=== PATIENT | female | born 1970 | race Caucasian/White ===

== ENCOUNTER 2017-02-22 18:40 | Emergency (ER) | payer MEDICARE ==
[~2017-02-22] VITALS: Ht 167.6 cm; Wt 126.1 kg
[~2017-02-22 18:40] MED LIST: AMBIEN10 MG; AMBIEN10 MG PO; ATORVASTATIN CA40 MG PO; BUPROPION HCL100 M1 PO; BUSPIRONE HCL10 MG PO; COMBIVENT RESPIM4 GM IH; CYMBALTA20 MG; CYMBALTA60 MG PO; DIPHENHYDRAMINE50 M1 PO; HUMALOG100 UNIT/1 SC; HYDRALAZINE HCL10 MG PO; LANTUS 3ML100 UNITS/ SC; LIPITOR80 MG; LIPITOR80 MG PO; METFORMIN HCL1000 MG PO; METOPROLOL SUCC25 MG PO; METOPROLOL SUCC50 MG PO; NOVOLOG100 UNITS1 SQ; PROVENTIL HFA6.7 GM INH; SYMBICORT 16010.2 GM INH; TIZANIDINE HCL4 M1 PO; TOPAMAX100 MG PO; TOPIRAMATE25 MG PO; TOPROL XL25 MG; TRIFLUOPERAZINE2 MG PO; TRIFLUOPERAZINE5 MG PO; VENTOLIN HFA18 GM INH; ZESTRIL20 MG PO
--- NOTE | 2017-02-22 20:02 | Diagnostic Imaging Report ---
RIGHT ANKLE X-RAY - 3 VIEWS HISTORY: \S\FALL \S\[id number] \S\1925 \S\Y COMPARISON: None available. FINDINGS: Bones: No acute displaced fracture. Osseous alignment is within normal limits. Joints: Mild degenerative changes of the ankle joint. Calcaneal enthesopathic. Soft tissues: The soft tissues appear unremarkable. IMPRESSION: No acute radiographic abnormality. Signed by: Dr. Taylor Kendall M.D. on 02/22/2017 7:58 PM
[2017-02-22] MEDS ORDERED: HYDROCODONE/APAP 10MG-325MG TAB PO ONE (23:00)
== END 2017-02-23 00:27 | disposition home or self-care (01) ==
LOC: ER 18:40
DX: S93.491A Sprain of other ligament of right ankle, initial encounter (principal); S90.01XA Contusion of right ankle, initial encounter; X58.XXXA Exposure to other specified factors, initial encounter; Y92.008 Other place in unspecified non-institutional (private) residence as the place of occurrence of the external cause
CPT/HCPCS: 99283

== ENCOUNTER 2017-04-01 21:10 | Emergency (ER) | payer MEDICARE ==
[~2017-04-01] VITALS: Ht 167.6 cm; Wt 126.1 kg
--- OUTSIDE RECORDS SUMMARY | 2017-04-01 21:14 | XMS REPORT ---
Author Author [facility] Address Unknown Phone Unavailable Care Team Providers Care Applications Sales Consultant Name Role Phone DIOGENES MICHELLE Unavailable Unavailable Problems This patient has no known problems. Allergies, Adverse Reactions, Alerts This patient has no known allergies or adverse reactions. Medications This patient has no known medications. Results Test Description Test Time Test Comments Text Results Atomic Results Result Comments ANKLE 3 + VIEWS RIGHT [place] [address] Patient Name: ARIANNA SAAVEDRA MR #: [id number] : 1970 Age/Sex: 46/F Req #: [id number] Adm Physician: Ordered by: DIOGENES MICHELLE MD Report #: [id number] Location: ER Room/Bed: Procedure: [id number] DX/ANKLE 3 + VIEWS RIGHT Exam Date: 02/22/17 Exam Time: 1924 REPORT STATUS: Signed RIGHT ANKLE X-RAY - 3 VIEWS HISTORY: COMPARISON: None available. FINDINGS: Bones: No acute displaced fracture. Osseous alignment is within normal limits. Joints: Mild degenerative changes of the ankle joint. Calcaneal enthesopathic. Soft tissues: The soft tissues appear unremarkable. IMPRESSION: No acute radiographic abnormality. Signed by: Dr. Rosalva Cueva M.D. on 02/22/2017 7:58 PM Dictated By: ROSALVA CUEVA MD 59 Transcribed By: DESIREE on 02/22/171957 COPY TO: DIOGENES MICHELLE MD
--- OUTSIDE RECORDS SUMMARY | 2017-04-01 21:14 | XMS REPORT | Summary of Care ---
Author Author [facility] Address [address] [place] [address] Phone Unavailable Care Team Providers Care Chart Computer Name Role Phone JOSE HERNANDEZ M.D. 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, E11.42) Status: Active Asthma (493.90, J45.909) Status: Active Type 2 diabetes mellitus (250.00, E11.9) Status: Active Dyslipidemia (272.4, E78.5) Status: Active Abnormal blood chemistry (790.6, R79.9) Status: Active Apnea, sleep (780.57, G47.30) Status: Active COPD (chronic obstructive pulmonary disease) (496, J44.9) Status: Active Migraine (346.90, G43.909) Status: Active PTSD (post-traumatic stress disorder) (309.81, F43.10) Status: Active Depression, major (296.20, F32.9) Status: Active Anxiety disorder (300.00, F41.9) Status: Active Medications Name Dates Details Aspirin 81 MG TABS TAKE ONE TABLET BY MOUTH ONCE DAILY Active Atorvastatin Calcium 40 MG Oral Tablet TAKE 1 TABLET DAILY. * Refills: 0 Active Topiramate 100 MG Oral Tablet TAKE 1 TABLET DAILY. * Refills: 0 Active MetFORMIN HCl ER (MOD) 1000 MG Oral Tablet Extended Release 24 Hour 1 TABLET BY MOUTH TWICE DAILY. * Refills: 0 Active Combivent Respimat 20-100 MCG/ACT Inhalation Aerosol Solution TAKE 2 PUFFS BY MOUTH 4 TIMES A DAY DIRECTED * Refills: 0 Active Proventil HFA 108 (90 Base) MCG/ACT Inhalation Aerosol Solution INHALE 2 PUFFS BY MOUTH 4 TIMES A DAY * Refills: 0 Active TiZANidine HCl - 4 MG Oral Capsule 1 capsule by mouth as needed * Refills: 0 Active Topiramate 25 MG Oral Capsule Sprinkle Take 2 tablets by mouth at night * Refills: 0 Active Symbicort 160-4.5 MCG/ACT Inhalation Aerosol INHALE 2 PUFFS TWICE DAILY. RINSE MOUTH AFTER USE. * Refills: 0 Active CPAP Continuous Positive Airway Pressure USED NIGHTLY DIRECTED * Refills: 0 Active Sertraline HCl - 100 MG Oral Tablet TAKE 1 TABLET DAILY. * Quantity: 30 Refills: 0 JOSE HERNANDEZ M.D. * Start : 13-Mar-2017 Active BusPIRone HCl - 15 MG Oral Tablet TAKE 1 TABLET 3 TIMES DAILY. * Quantity: 90 Refills: 1 JOSE HERNANDEZ M.D. * Start : 01-Mar-2016 Active Allergies and Adverse Reactions Name Dates Details Ibuprofen TABS (Allergy) Status: Active Penicillins (Allergy) Status: Active Past Medical History Name Dates Details History of breast cancer (V10.3, Z85.3) Status: Resolved Past myocardial infarction (412, I25.2) Status: Resolved Procedures Procedure Dates Details History of Hysterectomy Completed History of Knee Surgery Left Completed History of Cholecystectomy Completed History of Appendectomy Completed History of Ovarian Cystectomy Completed History of Section Completed History of Hand Surgery Completed Immunization Name Dates Details Immunizations not documented Family History Name Dates Details Family history of malignant neoplasm of breast (V16.3, Z80.3) Status: Active Family history of malignant neoplasm of brain (V16.8, Z80.8) Status: Active Family history of diabetes mellitus (V18.0, Z83.3) Status: Active Family history of atrial fibrillation (V17.49, Z82.49) Status: Active Name Dates Details Family history of malignant neoplasm of brain (V16.8, Z80.8) Status: Active Family history of diabetes mellitus (V18.0, Z83.3) Status: Active Social History Name Dates Details - Status: Name Dates Details Former smoker Vital Signs Date Test Result Details No Known Vitals to report Results Date Description Value Details Results not documented Plan of Care Name Dates Details Planned Observations Planned Goals not documented Planned Encounters Appointment; JOSE HERNANDEZ M.D. On: 22-Mar-2017 12:00 Instructions Name Dates Details Instructions not documented Encounters Appointment; RAÚL DOVER M.D. Encounter Diagnosis: Problem not documented On: 22-May-2015 10:00 Appointment; JOSE HERNANDEZ M.D. Encounter Diagnosis: Problem not documented On: 15-Sep-2015 10:00 Appointment; JOSE HERNANDEZ M.D. Encounter Diagnosis: Problem not documented On: 28-Sep-2015 12:00 Appointment; JOSE HERNANDEZ M.D. Encounter Diagnosis: Problem not documented On: 01-Dec-2015 13:30 Appointment; JOSE HERNANDEZ M.D. Encounter Diagnosis: Problem not documented On: 14-Jun-2016 11:00 Appointment; JOSE HERNANDEZ M.D. Encounter Diagnosis: Problem not documented On: 22-Nov-2016 12:00
[2017-04-01] MEDS ORDERED: SEROQUEL25 MG PO (22:19)
[2017-04-01] MEDS ORDERED: GABAPENTIN300 MG PO (22:19)
[2017-04-01] MEDS ORDERED: ZOLOFT50 MG PO (22:19)
[2017-04-01] MEDS ORDERED: HYDROCODONE/APAP 5MG-325MG TAB PO ONE (22:45)
[2017-04-01 22:55] VITALS: BP 109/90
[2017-04-05] MEDS ORDERED: LEVEMIR100 UNIT/1 SQ (17:46)
[2017-04-06] MEDS ORDERED: ASPIR 8181 MG (07:16)
[2017-04-06] MEDS ORDERED: AMLODIPINE BESYL5 MG PO (07:16)
== END 2017-04-01 22:52 | disposition home or self-care (01) ==
LOC: FSED 21:10
DX: M62.830 Muscle spasm of back (principal)
CPT/HCPCS: 99282

== ENCOUNTER → 2017-04-06 | Day surgery (SDC) | payer MEDICARE ==
[~2017-04-06] MED LIST changes: +AMLODIPINE BESYL5 MG PO; +ASPIR 8181 MG; +FENTANYL CITRATE/PF 100MCG/2 ML INJ ONE; +GABAPENTIN300 MG PO; +LEVEMIR100 UNIT/1 SQ; +LIDOCAINE HCL 2% LOCAL INJ 5 ML SDV VIAL INJ ONE; +MIDAZOLAM HCL 2 MG/2 ML VIAL ONE; +PROPOFOL IV EMULSION 10 MG/ML 20 ML VIAL ONE; +SEROQUEL25 MG PO; +ZOLOFT50 MG PO
--- OUTSIDE RECORDS SUMMARY | 2017-04-06 05:58 | XMS REPORT | Continuity of Care Document ---
Author Author [facility] Organization [facility] Address [address] [place] [address] Phone Unavailable Care Team Providers Care Electron Beam Machine Welder Setter Name Role Phone DONNA NELSON MD PCP Insurance Providers Guarantor Hue Saavedra Address [address] [place] [address] Payer [employer] Medicare Policy Number [id number] Subscriber's Name JefeHue Relationship 18 Self / Same As Patient Group Number [id number] Group Name [employer] Effective Date 17 Advance Directives Directive Response Recorded Date/Time Does the patient have an advance directive? No 02/28/13 6:22pm If yes, is advance directive on file with [facility]? No 09/03/06 6:09pm If not on file with [facility] will patient provide a copy? No 08/08/12 9:45pm Do you have a Directive to Physician? No 04/01/17 10:40pm Do you have a Medical Power of Guideman? No 04/01/17 10:40pm Do you have an out of hospital Do Not Resuscitate Order? No 04/01/17 10:40pm Do you have any special needs we should be aware of? No 04/01/17 10:40pm Do you have a support person here with you today? Yes 04/01/17 10:40pm Did patient receive Notice of Privacy Practices? Yes 04/01/17 10:40pm Did patient receive patient rights and responsibilities? Yes 04/01/17 10:40pm Problems Medical Problem Onset Date Status Headache Unknown Acute Medications Current Home Medications Medication Dose Units Route Directions Days Qty Instructions Start Date Albuterol Sulfate (Proventil Hfa) 6.7 Gm Hfa.aer.ad 2 Inh Inhalation Four Times Daily Albuterol Sulfate (Ventolin Hfa) 18 Gm Hfa.aer.ad 2 Inh Inhalation Four Times Daily as needed for Shortness Of Breath Atorvastatin Calcium 40 Mg Tablet 40 Mg Oral Today At 9:00PM Budesonide/Formoterol Fumarate (Symbicort 160-4.5 Mcg Inhaler) 10.2 Gm Hfa.aer.ad 2 Inh Inhalation Twice A Day Bupropion Hcl (Bupropion Hcl Sr) 100 Mg Tablet.er 150 Mg Oral Twice A Day Buspirone Hcl 10 Mg Tablet 15 Mg Oral Twice A Day Diphenhydramine Hcl 50 Mg Capsule 50 Mg Oral Bedtime Gabapentin 300 Mg Capsule 300 Mg Oral Daily 60 Cap Insulin Aspart (Novolog) 100 Units/1 Ml Inj 30 Units Sub-Q Twice A Day Insulin Glargine (Lantus 3ML Pen) 100 Units/1 Ml Inj 40 Subcutaneously Bedtime Insulin Lispro (Humalog) 100 Unit/1 Ml Cartridge 16-18 Subcutaneously Before Meals Ipratropium/Albuterol Sulfate (Combivent Respimat Inhal [place]) 4 Gm Aer.w.adap 2 Inh Inhalation Four Times Daily as needed for Puff Lisinopril (Zestril*) 20 Mg Tablet 20 Mg Oral Daily Metformin Hcl 1,000 Mg Tablet 1,000 Mg Oral Twice A Day Metoprolol Succinate 50 Mg Tab.er.24h 50 Mg Oral Daily Quetiapine Fumarate (Seroquel) 25 Mg Tablet 50 Mg Oral Bedtime 60 Tab Sertraline Hcl (Zoloft) 50 Mg Tablet 100 Mg Oral Twice A Day 30 Tab Tizanidine Hcl 4 Mg Capsule 4 Mg Oral Bedtime Topiramate 25 Mg Tablet 50 Mg Oral Daily 30 Tab Topiramate (Topamax*) 100 Mg Tablet 100 Mg Oral Daily Trifluoperazine Hcl 2 Mg Tablet 2 Mg Oral Bedtime Zolpidem Tartrate (Ambien) 10 Mg Tablet Zolpidem Tartrate (Ambien) 10 Mg Tablet 10 Mg Oral Bedtime Past Home Medications Medication Directions Ordered Status Atorvastatin Calcium (Lipitor) 80 Mg Tablet, 80 Mg Oral Rt Daily Discontinued Atorvastatin Calcium (Lipitor) 80 Mg Tablet, Bid Discontinued Duloxetine Hcl (Cymbalta) 20 Mg Capcr, Bid Discontinued Hydralazine Hcl 10 Mg Tablet, 25 Mg Oral Three Times A Day Discontinued Metoprolol Succinate 25 Mg Tab.er.24h, 25 Mg Oral Daily Discontinued Metoprolol Succinate (Toprol Xl) 25 Mg Tab.er.24h, Daily Discontinued Trifluoperazine Hcl 5 Mg Tablet, 5 Mg Oral Rt Daily Discontinued Social History Social History Problem Response Recorded Date/Time Onset Date Status Hx Psychiatric Problems Y - HX. ANXIETY 02/28/2013 6:22pm Not Applicable Not Applicable Hx Eating Disorder No 02/28/2013 6:22pm Not Applicable Not Applicable Hx Substance Use Disorder No 02/28/2013 6:22pm Not Applicable Not Applicable Hx Depression Yes 02/28/2013 6:22pm Not Applicable Not Applicable Hx Alcohol Use No 02/28/2013 6:22pm Not Applicable Not Applicable Hx Substance Use Treatment No 02/28/2013 6:22pm Not Applicable Not Applicable Hx Physical Abuse No 02/28/2013 6:22pm Not Applicable Not Applicable Smoking Status Start Date Stop Date Former smoker Hospital Discharge Instructions No hospital discharge instruction information available. Plan of Care Discharge Date 04/01/17 10:52pm Disposition HOME, SELF-CARE Condition at Discharge Stable Instructions/Education Provided Back Pain Prescriptions See Medication Section Referrals DONNA NELSON MD Address: [address] [place] [id number] Additional Instructions/Education Return to the closest emergency room if symptoms worsen. Drink plenty of fluids and stay well hydrated. Alternate with water and sports drink (Gatorade and Powerade etc.) You know you are well hydrated when your urine is clear. Ice muscle for 20 minutes, every 2 hours while awake. Massage muscles a few times a week. Take your baclofen 20mg every 6 hours as needed for muscle spasm. Take your narcotic pain medicine as prescribed. Do not drive or operate any heavy machinery while taking your muscle relaxant or your narcotic pain prescriptions. Follow up with Primary Care Physician on Monday. Functional Status No functional status information available. Allergies, Adverse Reactions, Alerts Allergen Type Severity Reaction Status Last Updated Penicillin Allergy Unknown Active 07/09/16 Ibuprofen Allergy Unknown Active 07/09/16 Hydromorphone Allergy Intermediate Active 07/09/16 Immunizations No immunization information available. Vital Signs Acute Vital Signs Vital Response Date/Time Pulse Pulse Rate (adult) 89 bpm (60 - 90) 04/01/2017 10:55pm Respiratory Rate 20 bpm (12 - 24) 04/01/2017 10:55pm Blood Pressure 109/90 mm Hg 04/01/2017 10:55pm Height 5 ft 6 in 04/01/2017 9:25pm Weight 278 lb 04/01/2017 9:25pm Body Mass Index 44.9 kg/m^2 04/01/2017 9:25pm Results Laboratory Results Test Name Result Units Flags Reference Collection Date/Time Result Date/ Time Comments White Blood Count 6.90 x10e3/uL 4.8-10.8 07/09/2016 8:12pm 07/09/2016 8 :33pm Red Blood Count 4.17 x10e6/uL 3.6-5.1 07/09/2016 8:12pm 07/09/2016 8: 33pm Hemoglobin 13.2 g/dL 12.0-16.0 07/09/2016 8:12pm 07/09/2016 8:33pm Hematocrit 37.3 % 34.2-44.1 07/09/2016 8:12pm 07/09/2016 8:33pm Mean Corpuscular Volume 89.4 fL 81-99 07/09/2016 8:12pm 07/09/2016 8: 33pm Mean Corpuscular Hemoglobin 31.7 pg 28-32 07/09/2016 8:12pm 07/09/2016 8:33pm Mean Corpuscular Hemoglobin Concent 35.4 g/dL H 31-35 07/09/2016 8:12pm 07/09/2016 8:33pm Red Cell Distribution Width 12.1 % 11.7-14.4 07/09/2016 8:12pm 2016 8:33pm Platelet Count 227 x10e3/uL 140-360 07/09/2016 8:12pm 07/09/2016 8: 33pm Neutrophils (%) (Auto) 47.8 % 38.7-80.0 07/09/2016 8:12pm 07/09/2016 8: 33pm Lymphocytes (%) (Auto) 39.1 % 18.0-39.1 07/09/2016 8:12pm 07/09/2016 8: 33pm Monocytes (%) (Auto) 8.0 % 4.4-11.3 07/09/2016 8:12pm 07/09/2016 8: 33pm Eosinophils (%) (Auto) 4.2 % 0.0-6.0 07/09/2016 8:12pm 07/09/2016 8: 33pm Basophils (%) (Auto) 0.6 % 0.0-1.0 07/09/2016 8:12pm 07/09/2016 8:33pm IM GRANULOCYTES % 0.3 % 0.0-1.0 07/09/2016 8:12pm 07/09/2016 8:33pm Neutrophils # (Auto) 3.3 2.1-6.9 07/09/2016 8:12pm 07/09/2016 8:33pm Lymphocytes # (Auto) 2.7 1.0-3.2 07/09/2016 8:12pm 07/09/2016 8:33pm Monocytes # (Auto) 0.6 0.2-0.8 07/09/2016 8:12pm 07/09/2016 8:33pm Eosinophils # (Auto) 0.3 0.0-0.4 07/09/2016 8:12pm 07/09/2016 8:33pm Basophils # (Auto) 0.0 0.0-0.1 07/09/2016 8:12pm 07/09/2016 8:33pm Absolute Immature Granulocyte (auto 0.02 x10e3/uL 0-0.1 07/09/2016 8: 12pm 07/09/2016 8:33pm Prothrombin Time 12.6 seconds 11.9-14.5 07/09/2016 8:12pm 07/09/2016 9: 09pm Prothromb Time International Ratio 0.90 07/09/2016 8:12p2016 9:09pm Oral Anticoagulant Therapy INR Values: 1. Low Intensity Therapy 1.5 - 2.0 2. Moderate Intensity Therapy 2.0 - 3.0 3. High Intensity Therapy(1) 2.5 - 3.5 4. High Intensity Therapy(2) 3.0 - 4.0 5. Panic Value INR > 5.0 Activated Partial Thromboplast Time 28.3 seconds 23.8-35.5 07/09/2016 8: 12pm 07/09/2016 9:09pm Urine Color YELLOW YELLOW 07/09/2016 8:04pm 07/09/2016 8:47pm Urine Clarity CLEAR CLEAR 07/09/2016 8:04pm 07/09/2016 8:47pm Urine Specific [place] 1.020 1.010-1.025 07/09/2016 8:04pm 2016 8:47pm Urine pH 5 5 - 7 07/09/2016 8:04pm 07/09/2016 8:47pm Urine Leukocyte Esterase NEGATIVE NEGATIVE 07/09/2016 8:04pm 2016 8:47pm Urine Nitrite NEGATIVE NEGATIVE 07/09/2016 8:04pm 07/09/2016 8:47pm Urine Protein NEGATIVE NEGATIVE 07/09/2016 8:04pm 07/09/2016 8:47pm Urine Glucose (UA) NEGATIVE NEGATIVE 07/09/2016 8:04pm 07/09/2016 8: 47pm Urine Ketones NEGATIVE NEGATIVE 07/09/2016 8:04pm 07/09/2016 8:47pm Urine Opiates Screen POSITIVE H NEGATIVE 07/09/2016 8:04pm 07/09/2016 8:52pm This test provides only a screen. Positive results should be repeated by a confirmatory test. Urine Barbiturates Screen NEGATIVE NEGATIVE 07/09/2016 8:04pm 2016 8:52pm Urine Amphetamines Screen NEGATIVE NEGATIVE 07/09/2016 8:04pm 2016 8:52pm Urine Benzodiazepines Screen NEGATIVE NEGATIVE 07/09/2016 8:04pm 04/2016 8:52pm Urine Cocaine Screen NEGATIVE NEGATIVE 07/09/2016 8:04pm 07/09/2016 8 :52pm Urine Cannabinoids Screen NEGATIVE NEGATIVE 07/09/2016 8:04pm 2016 8:52pm THESE RESULTS ARE FOR MEDICAL TREATMENT ONLY *THIS REPORT CONTAINS UNCONFIRMED SCREENING RESULTS* POSITIVE RESULTS WILL BE CONFIRMED BY REFERENCE LAB UPON REQUEST CUT-OFF DRUG CLASS CONCENTRATION ng/mL Amphetamines 1000 Methamphetamines 1000 Cocaine 300 Opiate 300 Phencyclidine 25 Cannabinoid 50 Barbiturates 300 Benzodiazepine 300 Methadone 300 Urine Urobilinogen 0.2 mg/dL 0.2 - 1 07/09/2016 8:04pm 07/09/2016 8: 47pm Urine Bilirubin NEGATIVE NEGATIVE 07/09/2016 8:04pm 07/09/2016 8: 47pm Urine Blood NEGATIVE NEGATIVE 07/09/2016 8:04pm 07/09/2016 8:47pm Urine WBC 0-5 /HPF 0-5 07/09/2016 8:04pm 07/09/2016 10:03pm Urine RBC 0-5 /HPF 0-5 07/09/2016 8:04pm 07/09/2016 10:03pm Urine Bacteria MODERATE /HPF H NONE 07/09/2016 8:04pm 07/09/2016 10: 03pm Urine Epithelial Cells MANY /LPF NONE 07/09/2016 8:04pm 07/09/2016 10: 03pm Sodium Level 139 mmol/L 136-145 07/09/2016 8:12pm 07/09/2016 9:09pm Potassium Level 3.7 mmol/L 3.5-5.1 07/09/2016 8:12pm 07/09/2016 9:09pm Chloride Level 107 mmol/L 98-107 07/09/2016 8:12p07/09/2016 9:09pm Carbon Dioxide Level 19 mmol/L L 22-29 07/09/2016 8:12pm 07/09/2016 9: 09pm Anion Gap 16.7 mmol/L H 8-16 07/09/2016 8:12pm 07/09/2016 9:09pm Blood Urea Nitrogen 14 mg/dL 7-26 07/09/2016 8:12pm 07/09/2016 9:09pm Creatinine 1.20 mg/dL H 0.57-1.11 07/09/2016 8:12p07/09/2016 9:09pm BUN/Creatinine Ratio 12 6-25 07/09/2016 8:12p07/09/2016 9:09pm Estimat Glomerular Filtration Rate 49 ML/MIN L 60- 07/09/2016 8:12p04/2016 9:09pm Ranges were taken from the National Kidney Disease Education Program and the National Kid[employer] Foundation literature. Reference ranges: 60 or greater: Normal 16-59 (for 3 consecutive months): Chronic kidney disease 15 or less: Kidney failure Glucose Level 161 mg/dL H 74-118 07/09/2016 8:12pm 07/09/2016 9:09pm Calcium Level 9.3 mg/dL 8.4-10.2 07/09/2016 8:07/09/2016 9:09pm Magnesium Level 1.7 MG/DL 1.3-2.1 07/09/2016 8:07/09/2016 9:09pm Total Bilirubin 0.3 mg/dL 0.2-1.2 07/09/2016 8:07/09/2016 9:09pm Aspartate Amino Transf (AST/SGOT) 40 IU/L H 5-34 07/09/2016 8:07/09 9:09pm Alanine Aminotransferase (ALT/SGPT) 69 IU/L H 0-55 07/09/2016 8:04/2016 9:09pm Total Protein 8.3 g/dL H 6.5-8.1 07/09/2016 8:07/09/2016 9:09pm Albumin 4.0 g/dL 3.5-5.0 07/09/2016 8:07/09/2016 9:09pm Globulin 4.3 g/dL H 2.3-3.5 07/09/2016 8:07/09/2016 9:09pm Albumin/Globulin Ratio 0.9 0.8-2.0 07/09/2016 8:07/09/2016 9: 09pm Alkaline Phosphatase 70 IU/L 40-150 07/09/2016 8:07/09/2016 9: 09pm Creatine Kinase 157 IU/L 29-168 07/09/2016 8:07/09/2016 9:09pm Creatine Kinase MB 1.70 ng/mL 0.00-5.00 07/09/2016 8:07/09/2016 9: 09pm Troponin I 0.003 ng/mL 0-0.300 07/09/2016 8:07/09/2016 9:09pm Acetaminophen Level < 3 ug/mL L 10-30 07/09/2016 8:07/09/2016 9: 10pm Thyroid Stimulating Hormone (TSH) 2.741 uIU/mL 0.350-4.940 07/09/2016 8: 12p07/09/2016 9:09pm Procedures Procedure Status Date Provider(s) X-ray of chest, two views Active 07/09/16 ANDREI BRAMBILA MD Encounters Encounter Location Arrival/Admit Date Discharge/Depart Date Attending Provider Departed Emergency Room [facility] 04/01/17 9:10pm 10:52pm ROBIN DENISE MD Departed Emergency Room [facility] 02/22/17 6:40pm 12:27am ANDREI BRAMBILA MD Departed Emergency Room [facility] 07/09/16 7:42pm 10:45pm ANDREI BRAMBILA MD
[2017-04-06 07:39] LABS: BASOPHILS # (AUTO) 0.1 (0.0-0.1); BASOPHILS % 0.7 % (0.0-1.0); EOSINOPHILS # (AUTO) 0.3 (0.0-0.4); EOSINOPHILS % 4.2 % (0.0-6.0); HEMATOCRIT 37.6 % (34.2-44.1); HEMOGLOBIN 13.3 g/dL (12.0-16.0); LYMPHOCYTES # (AUTO) 2.3 (1.0-3.2); LYMPHOCYTES % 32.9 % (18.0-39.1); MEAN CORPUSCULAR HEMOGLOBIN 30.8 pg (28-32); MEAN CORPUSCULAR HGB CONC 35.4 g/dL (31-35); MONOCYTES # (AUTO) 0.6 (0.2-0.8); MONOCYTES % 8.9 % (4.4-11.3); NEUTROPHILS # (AUTO) 3.7 (2.1-6.9); NEUTROPHILS % 53.2 % (38.7-80.0); PLATELET COUNT 207 x10e3/uL (140-360); RED BLOOD COUNT 4.32 x10e6/uL (3.6-5.1); RED CELL DISTRIBUTION WIDTH 11.9 % (11.7-14.4)
--- NOTE | 2017-04-06 10:28 | Operative Report ---
DATE OF PROCEDURE: April 06, 2017 PROCEDURE PERFORMED: Colonoscopy. PREOPERATIVE DIAGNOSIS: Diarrhea. POSTOPERATIVE DIAGNOSIS: Nonspecific colitis and internal hemorrhoids. PREOPERATIVE MEDICATIONS: Consist of anesthesia provided by MAC. Using the Olympus TEVIZZ video colonoscope, it was inserted into the patient's rectum and advanced without difficulty to the level of the cecum. The colon was inspected and went back down to the rectum. No polypoid lesions, tumor masses or inflammatory changes were encountered. Down in the sigmoid colon, we took multiple biopsies looking for a nonspecific colitis. As we withdrew the colonoscope back through the anal canal, internal hemorrhoids were noted. The colonoscope was withdrawn from the patient's rectum, and the procedure was ended. In conclusion, we have findings of normal colon, but history of diarrhea with a negative workup. Biopsies were obtained looking for microscopic colitis. Internal hemorrhoids were present, but not bleeding. Job#: [id number] [place]
== END | disposition home or self-care (01) ==
LOC: OR 05:56
PROVIDERS: ATTEND Internal Medicine Gastroenterology
DX: K52.9 Noninfective gastroenteritis and colitis, unspecified (principal); K64.8 Other hemorrhoids; K31.84 Gastroparesis; K21.9 Gastro-esophageal reflux disease without esophagitis; I25.10 Atherosclerotic heart disease of native coronary artery without angina pectoris; I25.2 Old myocardial infarction; E78.5 Hyperlipidemia, unspecified; I10 Essential (primary) hypertension; E11.9 Type 2 diabetes mellitus without complications; J44.9 Chronic obstructive pulmonary disease, unspecified; G47.33 Obstructive sleep apnea (adult) (pediatric); E66.01 Morbid (severe) obesity due to excess calories; F32.9 Major depressive disorder, single episode, unspecified; F41.9 Anxiety disorder, unspecified; Z79.82 Long term (current) use of aspirin; Z79.4 Long term (current) use of insulin; Z85.3 Personal history of malignant neoplasm of breast; Z68.42 Body mass index [BMI] 45.0-49.9, adult; Z87.891 Personal history of nicotine dependence; Z98.61 Coronary angioplasty status; Z80.0 Family history of malignant neoplasm of digestive organs
CPT/HCPCS: 36415; 45380; 82948; 85025; 88305; 93005; J2001; J2250

== ENCOUNTER 2017-04-15 17:06 | Emergency (ER) | payer MEDICARE ==
[~2017-04-15] VITALS: Ht 167.6 cm; Wt 122.5 kg
[~2017-04-15 17:06] MED LIST changes: -FENTANYL CITRATE/PF 100MCG/2 ML INJ ONE; -LIDOCAINE HCL 2% LOCAL INJ 5 ML SDV VIAL INJ ONE; -MIDAZOLAM HCL 2 MG/2 ML VIAL ONE; -PROPOFOL IV EMULSION 10 MG/ML 20 ML VIAL ONE
[2017-04-15] MEDS ORDERED: SODIUM CHLORIDE 0.9% 100 ML 100 ML IV ONE (17:45)
[2017-04-15] MEDS ORDERED: ALBUTEROL/IPRATROPIUM 3 ML NEB NEB ONE (18:00)
[2017-04-15] MEDS ORDERED: POTASSIUM CHLORIDE 20 MEQ TAB CR PO ONE (18:30)
[2017-04-15 18:53] VITALS: BP 120/80
== END 2017-04-15 19:30 | disposition home or self-care (01) ==
LOC: FSED 17:06
DX: R50.9 Fever, unspecified (principal); R05 Cough; J11.1 Influenza due to unidentified influenza virus with other respiratory manifestations; J31.0 Chronic rhinitis; E87.6 Hypokalemia; I10 Essential (primary) hypertension
CPT/HCPCS: 71046; 80053; 85025; 87400; 96360; 99284

== ENCOUNTER 2018-02-07 18:55 | Emergency (ER) | payer MEDICARE ==
[~2018-02-07] VITALS: Ht 167.6 cm; Wt 127.0 kg
--- OUTSIDE RECORDS SUMMARY | 2018-02-07 18:58 | XMS REPORT | Clinical Summary ---
Author Author [facility] Organization [facility] Address Unknown Phone Unavailable Care Team Providers Care Testing Director Name Role Phone Marquis Denton MD PCP Allergies Comments Active Allergy Reactions Severity Noted Date Hydromorphone Hives 10/13/2017 Bradycardia Ibuprofen Other (See 10/13/2017 Comments) Bradycardia Penicillins Other (See 10/13/2017 Comments) Medications End Date Status Medication Sig Dispensed Refills Start Date Active insulin detemir U-100 36 units at 0 (LEVEMIR U-100 INSULIN) Bedtime 100 unit/mL injection Active insulin ASPART (NovoLOG 20 units 0 Flexpen U-100 Insulin) Three Times A 100 unit/mL insulin pen Day with meals Active ipratropium-albuterol Inhale. 0 (COMBIVENT RESPIMAT) 20-100 mcg/actuation mist inhaler Active budesonide-formoterol Inhale. 0 (SYMBICORT) 160-4.5 mcg/actuation inhaler Active metFORMIN (GLUCOPHAGE) Twice A Day 0 1,000 mg tablet Active amLODIPine (NORVASC) 5 mg Daily 0 tablet Active topiramate (TOPAMAX) 25 Take 50 mg by 0 MG capsule mouth nightly. Active topiramate (TOPAMAX) 100 Take 100 mg 0 MG tablet by mouth 2 (two) times a day. Active aspirin (ECOTRIN) 81 MG Daily 0 enteric coated tablet Active omeprazole (PriLOSEC) 10 Take 10 mg by 0 MG capsule mouth daily. Active venlafaxine (EFFEXOR) 75 Take 75 mg by 0 MG tablet mouth 2 (two) times a day. Active eszopiclone (LUNESTA) 2 Take 2 mg by 0 MG tablet mouth nightly. Take immediately before bedtime Active metoclopramide (REGLAN) Take 10 mg by 0 10 MG tablet mouth 3 (three) times a day. Active atorvastatin (LIPITOR) 40 Take 40 mg by 0 MG tablet mouth nightly. Active clonAZEPAM (KlonoPIN) 0.5 Take 0.5 mg 0 MG tablet by mouth daily as needed for anxiety. Active dicyclomine (BENTYL) 20 Take 20 mg by 0 mg tablet mouth every 6 (six) hours as needed. 11/22/2017 cyclobenzaprine Take 1 tablet 60 tablet 0 (FLEXERIL) 5 mg tablet (5 mg total) 8 by mouth 3 (three) times a day as needed for muscle spasms for up to 30 days. 11/22/2017 gabapentin (NEURONTIN) Take 1 90 capsule 0 100 mg capsule capsule (100 8 mg total) by mouth 3 (three) times a day for 30 days. 11/04/2017 predniSONE (DELTASONE) 10 follow 1 Package 0 mg tablet pack package 8 directions, Start with 40mg and Taper it over 12days, 40mg X3days, 30mg X3days, 20mg X3days, 10mg 3days Active Problems Problem Noted Date Acute cystitis 10/15/2017 Syncope 10/14/2017 Encounters Care Team Description Date Type Specialty Dario Colbert, COM WRITER-C Tina Garibay MD Joglekar, Swati, MD Myelitis, unspecified (Primary Dx); Syncope, unspecified syncope type; Acute nonintractable headache, unspecified headache type; Acute bilateral back pain, unspecified back location; Paresthesia; Acute cystitis without hematuria; Weakness of both legs; Vasovagal syncope 10/13/2017 [facility] General Internal Medicine - Encounter 10/23/2017 after 02/06/2017 Immunizations Name Dates Previously Given Next Due FLUCELVAX QUAD PF (0.5mL 10/16/2017 syringe) Pneumococcal Conjugate 10/16/2017 [facility] Social History Date Tobacco Use Types Packs/Day Years Used Former Smoker Cigarettes Smokeless Tobacco: Never Used Alcohol Use Drinks/Week oz/Week Comments No Sex Assigned at Date Recorded Not on file Industry Job Start Date Occupation Not on file Not on file Not on file Travel End Travel History Travel Start No recent travel history available. Last Filed Vital Signs Time Taken Vital Sign Reading 10/23/2017 11:54 AM CDT Blood Pressure 138/77 10/23/2017 11:54 AM CDT Pulse 105 10/23/2017 11:54 AM CDT Temperature 36.8 C (98.2 F) 10/23/2017 11:54 AM CDT Respiratory Rate 20 10/23/2017 11:54 AM CDT Oxygen Saturation 93% - Inhaled Oxygen - Concentration 10/17/2017 8:15 AM CDT Weight 131 kg (289 lb 6.4 oz) 10/17/2017 8:15 AM CDT Height 167.6 cm (5' 6") 10/17/2017 8:15 AM CDT Body Mass Index 46.71 Plan of Treatment Health Maintenance Due Date Last Done Comments CERVICAL CANCER SCREENING 1993 INFLUENZA VACCINE Completed 10/16/2017 Procedures Comments Procedure Name Priority Date/Time Associated Diagnosis POC GLUCOSE Routine 10/23/2017 3:25 PM CDT POC GLUCOSE Routine 10/23/2017 12:30 PM CDT POC GLUCOSE Routine 10/23/2017 7:43 AM CDT ESTIMATED GFR Routine 10/23/2017 6:13 AM CDT BASIC METABOLIC PANEL Routine 10/23/2017 6:13 AM CDT POC GLUCOSE Routine 10/23/2017 3:25 AM CDT POC GLUCOSE Routine 10/22/2017 11:44 PM CDT POC GLUCOSE Routine 10/22/2017 7:51 PM CDT POC GLUCOSE Routine 10/22/2017 5:23 PM CDT POC GLUCOSE Routine 10/22/2017 4:44 PM CDT POC GLUCOSE Routine 10/22/2017 4:02 PM CDT POC GLUCOSE Routine 10/22/2017 11:46 AM CDT POC GLUCOSE Routine 10/22/2017 7:31 AM CDT POC GLUCOSE Routine 10/22/2017 3:55 AM CDT POC GLUCOSE Routine 10/21/2017 11:28 PM CDT POC GLUCOSE Routine 10/21/2017 8:39 PM CDT MRI THORACIC SPINE W WO Routine 10/21/2017 CONTRAST 7:03 PM CDT POC GLUCOSE Routine 10/21/2017 4:09 PM CDT POC GLUCOSE Routine 10/21/2017 11:43 AM CDT POC GLUCOSE Routine 10/21/2017 4:34 AM CDT POC GLUCOSE Routine 10/21/2017 12:12 AM CDT POC GLUCOSE Routine 10/20/2017 8:51 PM CDT POC GLUCOSE Routine 10/20/2017 5:10 PM CDT POC GLUCOSE Routine 10/20/2017 11:09 AM CDT POC GLUCOSE Routine 10/20/2017 8:35 AM CDT POC GLUCOSE Routine 10/20/2017 4:57 AM CDT POC GLUCOSE Routine 10/20/2017 12:14 AM CDT POC GLUCOSE Routine 10/19/2017 8:27 PM CDT POC GLUCOSE Routine 10/19/2017 4:53 PM CDT POC GLUCOSE Routine 10/19/2017 10:50 AM CDT POC GLUCOSE Routine 10/19/2017 5:56 AM CDT POC GLUCOSE Routine 10/18/2017 11:19 PM CDT POC GLUCOSE Routine 10/18/2017 7:55 PM CDT POC GLUCOSE Routine 10/18/2017 4:16 PM CDT POC GLUCOSE Routine 10/18/2017 12:02 PM CDT POC GLUCOSE Routine 10/18/2017 8:11 AM CDT SEDIMENTATION RATE Routine 10/18/2017 6:30 AM CDT POC GLUCOSE Routine 10/18/2017 3:32 AM CDT POC GLUCOSE Routine 10/17/2017 11:43 PM CDT POC GLUCOSE Routine 10/17/2017 7:56 PM CDT POC GLUCOSE Routine 10/17/2017 4:05 PM CDT IMMUNOGLOBULIN A Routine 10/17/2017 12:53 PM CDT VITAMIN B1 LEVEL, WHOLE Routine 10/17/2017 BLOOD 12:53 PM CDT VITAMIN B12 LEVEL Routine 10/17/2017 12:53 PM CDT POC GLUCOSE Routine 10/17/2017 12:27 PM CDT FL LUMBAR PUNCTURE Routine 10/17/2017 12:05 PM CDT CSF PATHOLOGIST CONSULT Routine 10/17/2017 11:55 AM CDT WE[place] VIRUS BY PCR, Routine 10/17/2017 CSF 11:55 AM CDT PROTEIN, CSF Routine 10/17/2017 11:55 AM CDT CSF CELL COUNT WITH Routine 10/17/2017 DIFFERENTIAL 11:55 AM CDT GRAM STAIN Routine 10/17/2017 11:55 AM CDT CSF CULTURE Routine 10/17/2017 11:55 AM CDT POC GLUCOSE Routine 10/17/2017 9:11 AM CDT POC GLUCOSE Routine 10/17/2017 4:12 AM CDT POC GLUCOSE Routine 10/17/2017 1:08 AM CDT MRI BRAIN WO CONTRAST Routine 10/16/2017 9:49 PM CDT POC GLUCOSE Routine 10/16/2017 8:12 PM CDT POC GLUCOSE Routine 10/16/2017 4:43 PM CDT POC GLUCOSE Routine 10/16/2017 12:20 PM CDT POC GLUCOSE Routine 10/16/2017 8:21 AM CDT POC GLUCOSE Routine 10/15/2017 9:08 PM CDT POC GLUCOSE Routine 10/15/2017 3:54 PM CDT POC GLUCOSE Routine 10/15/2017 10:54 AM CDT ZZESTIMATED GFR Routine 10/15/2017 5:48 AM CDT BASIC METABOLIC PANEL Routine 10/15/2017 5:48 AM CDT HC COMPLETE BLD COUNT Routine 10/15/2017 W/AUTO DIFF 5:48 AM CDT POC GLUCOSE Routine 10/15/2017 5:26 AM CDT ECG ED PRELIMINARY Routine 10/14/2017 INTERPRETATION 8:54 PM CDT KS CRITICAL CARE, E/M Routine 10/14/2017 30-74 MINUTES 8:54 PM CDT ECG 12-LEAD STAT 10/14/2017 5:24 PM CDT POC GLUCOSE Routine 10/14/2017 3:59 PM CDT ECG 12-LEAD STAT 10/14/2017 2:14 PM CDT ECHOCARDIOGRAM 2D Routine 10/14/2017 COMPLETE W MMODE SPECTRAL 1:15 PM CDT COLOR DOPPLER (18994) POC GLUCOSE Routine 10/14/2017 11:10 AM CDT TROPONIN Routine 10/14/2017 9:10 AM CDT ZZESTIMATED GFR Routine 10/14/2017 9:10 AM CDT COMPREHENSIVE METABOLIC Routine 10/14/2017 PANEL 9:10 AM CDT HC COMPLETE BLD COUNT Routine 10/14/2017 W/AUTO DIFF 9:10 AM CDT POC GLUCOSE Routine 10/14/2017 6:44 AM CDT LIPID PANEL Routine 10/14/2017 4:50 AM CDT HEMOGLOBIN A1C Routine 10/14/2017 4:50 AM CDT TROPONIN Timed 10/14/2017 4:50 AM CDT MRI LUMBAR SPINE WO STAT 10/14/2017 CONTRAST 1:27 AM CDT MRI THORACIC SPINE WO STAT 10/14/2017 CONTRAST 12:59 AM CDT MRI CERVICAL SPINE WO STAT 10/14/2017 CONTRAST 12:[address] ANGIOGRAM PE CHEST STAT 10/13/2017 11:46 PM CDT URINALYSIS SCREEN AND STAT 10/13/2017 MICROSCOPY, WITH REFLEX 11:40 PM CDT TO CULTURE GRAM STAIN STAT 10/13/2017 11:40 PM CDT URINE CULTURE STAT 10/13/2017 11:40 PM CDT ZZESTIMATED GFR STAT 10/13/2017 10:30 PM CDT D-DIMER STAT 10/13/2017 10:30 PM CDT T4, FREE STAT 10/13/2017 10:30 PM CDT THYROID STIMULATING STAT 10/13/2017 HORMONE 10:30 PM CDT PARTIAL THROMBOPLASTIN STAT 10/13/2017 TIME (PTT) 10:30 PM CDT PROTHROMBIN TIME WITH INR STAT 10/13/2017 10:30 PM CDT B NATRIURETIC PEPTIDE STAT 10/13/2017 10:30 PM CDT TROPONIN STAT 10/13/2017 10:30 PM CDT CREATINE KINASE, TOTAL STAT 10/13/2017 (CPK) 10:30 PM CDT MAGNESIUM LEVEL STAT 10/13/2017 10:30 PM CDT COMPREHENSIVE METABOLIC STAT 10/13/2017 PANEL 10:30 PM CDT HC COMPLETE BLD COUNT STAT 10/13/2017 W/AUTO DIFF 10:[address] HEAD WO CONTRAST STAT 10/13/2017 9:12 PM CDT XR CHEST 1 VW PORTABLE STAT 10/13/2017 8:59 PM CDT ECG 12-LEAD STAT 10/13/2017 8:45 PM CDT after 02/06/2017 Results * POC glucose (10/23/2017 3:25 PM CDT) Only the most recent of 52 results within the time period is included. POC glucose 321 (H) 65 - 99 mg/dL [facility] DEPARTMENT OF Comment: PATHOLOGY AND Meter ID: [id number] [facility] Backhoe Operator: Ron Solorzano Performing Organization Address City/State/Zipcode Phone [place] [address] [place] [address] PATHOLOGY AND GENOMIC MEDICINE * Estimated GFR (10/23/2017 6:13 AM CDT) Estimated GFR >=90 mL/min/1.73 m2 [facility] OF Comment: PATHOLOGY AND [employer] GENOMIC MEDICINE rpretation G1 >=90 Normal or high G2 60-89Mildly decreased [id number] Mildly to moderately decreased [id number] Moderately to severely decreased G4 15-29Severely decreased G5 <15Kidney failure The eGFR was calculated using the Chronic Kidney Disease Epidemiology Collaboration (CKD-EPI) equation. Interpretation is based on recommendations of the National Kidney Foundation-Kidney Disease Outcomes Quality Initiative (NKF-KDOQI) published in 2014. Specimen Plasma specimen Performing Organization Address [facility] Phone Number [address] [place] [address] PATHOLOGY AND GENOMIC [facility] * Basic metabolic panel (10/23/2017 6:13 AM CDT) Only the most recent of 2 results within the time period is included. Sodium 136 135 - 148 mEq/L [facility] DEPART[facility] OF PATHOLOGY AND GENOMIC MEDICINE Potassium 3.6 3.5 - 5.0 mEq/L [facility] OF PATHOLOGY AND GENOMIC MEDICINE Chloride 105 98 - 112 mEq/L [facility] DE[facility] OF PATHOLOGY AND GENOMIC MEDICINE CO2 20 (L) 24 - 31 mEq/L [facility] OF PATHOLOGY AND GENOMIC MEDICINE Anion gap 11@ANIO 7 - 15 mEq/L [facility] DE[facility]MENT OF PATHOLOGY AND GENOMIC MEDICINE BUN 16 6 - 20 mg/dL [facility] DE[facility] OF PATHOLOGY AND GENOMIC MEDICINE Creatinine 0.70 0.50 - 0.90 mg/dL [facility] DE[facility]MENT OF PATHOLOGY AND GENOMIC MEDICINE Glucose 177 (H) 65 - 99 mg/dL [facility] OF PATHOLOGY AND GENOMIC MEDICINE Calcium 9.1 8.3 - 10.2 mg/dL [facility] DEPARTMENT OF PATHOLOGY AND GENOMIC MEDICINE Specimen Plasma specimen Performing Organization Address [facility] Phone Number [address] [place] [phone] PATHOLOGY AND [facility] * MRI Thoracic Spine W Wo Contrast (10/21/2017 7:03 PM CDT) Narrative Performed At EXAM: MRI THORACIC SPINE W WO CONTRAST [facility] CLINICAL HISTORY: paraparesis with lower thoracic back pain and sensory level at T10 TECHNIQUE: Multiplanar multisequence pre and post contrast enhanced examination was performed of the thoracic spine. COMPARISON:10/14/2017 FINDINGS: Thoracic alignment, vertebral body height, and signal intensity are within normal limits. There is no evidence of acute fracture, suspicious osteolytic lesion, or suspicious osteoblastic lesion. Enhancing T1 isointense/T2/STIR hyperintense signal abnormality within the T10 vertebral body posteriorly is most likely customer response representative of a small hemangioma. Technically, alternate lesion such as a metastasis cannot be entirely excluded, particularly if the setting of known primary neoplasm. However, the remaining osseous structures are again unremarkable in appearance. Otherwise no significant enhancing abnormality is noted on the postcontrast images. No abnormal spinal cord signal is present. No abnormal enhancement is identified. Visualized paraspinal soft tissues are unremarkable. IMPRESSION: 1.No MRI evidence for acute vertebral fracture, spondylolisthesis, or abnormal cord signal. No concerning enhancing spinal lesions identified. 2.Enhancing T1 isointense/T2/STIR hyperintense signal abnormality within the T10 vertebral body posteriorly is most likely customer response representative of a small hemangioma. Technically, alternate lesion such as a metastasis cannot be entirely excluded, particularly if the setting of known primary neoplasm. However, the remaining osseous structures are again unremarkable in appearance. [facility]-[id number] Procedure Note Interface, Radiology Results Incoming - 10/21/2017 8:42 PM CDT EXAM: MRI THORACIC SPINE W WO CONTRAST CLINICAL HISTORY: paraparesis with lower thoracic back pain and sensory level at T10 TECHNIQUE: Multiplanar multisequence pre and post contrast enhanced examination was performed of the thoracic spine. COMPARISON: 10/14/2017 FINDINGS: Thoracic alignment, vertebral body height, and signal intensity are within normal limits. There is no evidence of acute fracture, suspicious osteolytic lesion, or suspicious osteoblastic lesion. Enhancing T1 isointense/T2/STIR hyperintense signal abnormality within the T10 vertebral body posteriorly is most likely customer response representative of a small hemangioma. Technically, alternate lesion such as a metastasis cannot be entirely excluded, particularly if the setting of known primary neoplasm. However, the remaining osseous structures are again unremarkable in appearance. Otherwise no significant enhancing abnormality is noted on the postcontrast images. No abnormal spinal cord signal is present. No abnormal enhancement is identified. Visualized paraspinal soft tissues are unremarkable. IMPRESSION: 1. No MRI evidence for acute vertebral fracture, spondylolisthesis, or abnormal cord signal. No concerning enhancing spinal lesions identified. 2. Enhancing T1 isointense/T2/STIR hyperintense signal abnormality within the T10 vertebral body posteriorly is most likely customer response representative of a small hemangioma. Technically, alternate lesion such as a metastasis cannot be entirely excluded, particularly if the setting of known primary neoplasm. However, the remaining osseous structures are again unremarkable in appearance. [facility]-[id number] Performing Organization Address City/State/Zipcode Phone Number [facility] [address] [place] [address] * Sedimentation rate (10/18/2017 6:30 AM CDT) Sedimentation rate 31 (H) 0 - 20 mm/hr [facility] OF PATHOLOGY AND GENOMIC MEDICINE Specimen Blood Performing Organization Address [facility] Phone Number [address] [place] [address] PATHOLOGY AND GENOMIC MEDICINE * Vitamin B1 level, whole blood (10/17/2017 12:53 PM CDT) Vitamin B1 130 70 - 180 nmol/L [email or web address] Comment: INTERPRETIVE INFORMATION: Vitamin B1, Whole Blood This assay measures the concentration of thiamine diphosphate (TDP), the primary active form of vitamin B1. Approximately 90 percent of vitamin B1 present in whole blood is TDP. Thiamine and thiamine monophosphate, which comprise the remaining 10 percent, are not measured. Test developed and characteristics determined by [facility]. See Compliance Statement B: [facility] Performed by [facility], [address] [place] [id number] [email or web address] MD - Lab. Director Specimen Plasma specimen Performing Organization Address [facility] Centercode Phone Number [facility] [address] [place] [address] * Immunoglobulin A (10/17/2017 12:53 PM CDT) IgA 272 70 - 400 mg/dL [facility] DEPARTMENT OF PATHOLOGY AND GENOMIC MEDICINE Specimen Plasma specimen Performing Organization Address [facility] Centercode Phone Number [facility] [address] [place] [address] PATHOLOGY AND [facility] MEDICINE * Vitamin B12 level (10/17/2017 12:53 PM CDT) Vitamin B12 349 211 - 946 pg/mL [facility] OF Comment: PATHOLOGY AND Significant overlap exists GENOMIC MEDICINE between normal and deficiency states. However, most patients with deficiencies will have Serum B12 <200 pg/mL. Specimen Serum Performing Organization Address [facility] Centercode Phone Number [facility] [address] [place] [address] PATHOLOGY AND GENOMIC MEDICINE * FL Lumbar Puncture by Radiology (10/17/2017 12:05 PM CDT) Narrative Performed At EXAMINATION:FL LUMBAR PUNCTURE [facility] REASON FOR EXAMINATION:Eval for GBS. orders for CSF are in the LP order. COMPARISON: None TECHNIQUE: After explanation of risk and benefits, the patient was brought to the vascular suite. An informed consent was obtained. The skin overlying the lumbar spine was prepped and draped in sterile manner. The skin was anesthetized with 1% lidocaine. Using fluoroscopic guidance, a 20-gauge spinal needle was introduced into the thecal sac at the level of L5. 10 cc of clear spinal fluid were obtained. Following completion of the procedure, the needle was removed. Hemostasis was obtained. There were no intraoperative complications. CONSCIOUS SEDATION:NONE Fluoroscopy time:1.18 minutes number of fluoroscopic images obtained: 5 Total Dose18.2mGy IMPRESSION: 1. Status post lumbar puncture. 2. The patient was given conscious sedation as described above. 3. Fluoroscopic guidance was used for this procedure. FINDINGS: The opening pressure was less than 10 cm of water. [id number] Procedure Note Interface, Radiology Results Incoming - 10/18/2017 7:24 AM CDT EXAMINATION: FL LUMBAR PUNCTURE REASON FOR EXAMINATION: Eval for GBS. orders for CSF are in the LP order. COMPARISON: None TECHNIQUE: After explanation of risk and benefits, the patient was brought to the vascular suite. An informed consent was obtained. The skin overlying the lumbar spine was prepped and draped in sterile manner. The skin was anesthetized with 1% lidocaine. Using fluoroscopic guidance, a 20-gauge spinal needle was introduced into the thecal sac at the level of L5. 10 cc of clear spinal fluid were obtained. Following completion of the procedure, the needle was removed. Hemostasis was obtained. There were no intraoperative complications. CONSCIOUS SEDATION: NONE Fluoroscopy time: 1.18 minutes number of fluoroscopic images obtained: 5 Total Dose 18.2 mGy IMPRESSION: 1. Status post lumbar puncture. 2. The patient was given conscious sedation as described above. 3. Fluoroscopic guidance was used for this procedure. FINDINGS: The opening pressure was less than 10 cm of water. [id number] Performing Organization Address City/State/Zipcode Phone Number [facility] [address] [place] [address] * CSF pathologist consult (10/17/2017 11:55 AM CDT) CSF pathologist consult Done [facility] OF PATHOLOGY AND GENOMIC MEDICINE Specimen Cerebrospinal fluid Performing Organization Address City/[facility] Centercode Phone Number [facility] [address] [place] [address] PATHOLOGY AND GENOMIC MEDICINE * West Nile virus by PCR, CSF (10/17/2017 11:55 AM CDT) West Nile virus PCR, CSF Not-Detected Not-Detected [facility] DEPARTMENT OF PATHOLOGY AND GENOMIC MEDICINE West Nile virus PCR, CSF See link below for PDF Lab [facility] DEPARTMENT OF ReportComment: Case Number: PATHOLOGY AND [id number] GENOMIC MEDICINE Specimen Cerebrospinal fluid Performing Organization Address City/[facility] Centercode Phone Number [facility] DEPARTMENT OF [address] [place] [phone] PATHOLOGY AND GENOMIC MEDICINE * Gram stain (10/17/2017 11:55 AM CDT) Only the most recent of 2 results within the time period is included. Gram stain isolate Rare WBC's [facility] DEPARTMENT OF No organisms seen PATHOLOGY AND Comment: GENOMIC MEDICINE Specimen Information Specimen Source: CSF (Spinal Fluid) Specimen Site: Tube 2 Specimen Cerebrospinal fluid - Tube 2 Performing Organization Address City/[facility] Centercode Phone Number [facility] DEPARTMENT [address] [place] [phone] PATHOLOGY AND GENOMIC MEDICINE * CSF culture (10/17/2017 11:55 AM CDT) CSF culture isolate No growth after 3 days. [facility] DEPARTMENT OF Comment: PATHOLOGY AND Specimen Information GENOMIC MEDICINE Specimen Source: CSF (Spinal Fluid) Specimen Site: Tube 2 Specimen Cerebrospinal fluid - Tube 2 Performing Organization Address [facility] Centercode Phone Number [facility] DEPARTMENT OF [address] [place] [phone] PATHOLOGY AND GENOMIC MEDICINE * CSF cell count with differential (10/17/2017 11:55 AM CDT) CSF tube number Tube 4 [facility] DEPARTMENT OF PATHOLOGY AND GENOMIC MEDICINE Color, CSF Colorless [facility] DEPARTMENT OF PATHOLOGY AND GENOMIC MEDICINE Appearance, CSF Clear [facility] DEPARTMENT OF PATHOLOGY AND GENOMIC MEDICINE CSF supernatant Colorless [facility] DEPARTMENT OF PATHOLOGY AND GENOMIC MEDICINE RBC, CSF 207 (H) 0 - 1 /CMM [facility] DEPARTMENT OF PATHOLOGY AND GENOMIC MEDICINE WBC, CSF 7 (H) 0 - 5 /CMM [facility] DEPARTMENT OF PATHOLOGY AND GENOMIC MEDICINE CSF mononuclear cell 0 [facility] DEPARTMENT OF PATHOLOGY AND GENOMIC MEDICINE Neutrophils, CSF 10 % [facility] DEPARTMENT OF PATHOLOGY AND GENOMIC MEDICINE Lymphocytes, CSF 80 % [facility] DEPARTMENT OF PATHOLOGY AND GENOMIC MEDICINE Monocytes, CSF 10 % [facility] DEPARTMENT OF PATHOLOGY AND GENOMIC MEDICINE Specimen Cerebrospinal fluid Performing Organization Address City/[facility]/Zipcode Phone Number [facility] [place] [address] [place] [address] PATHOLOGY AND GENOMIC MEDICINE * Protein, CSF (10/17/2017 11:55 AM CDT) Protein, CSF 58 (H) 15 - 45 mg/dL [facility] OF PATHOLOGY AND GENOMIC MEDICINE Specimen Cerebrospinal fluid Performing Organization Address [facility]ercode Phone Number [facility] [place] [address] [place] [address] PATHOLOGY AND GENOMIC MEDICINE * MRI Brain Wo Contrast (10/16/2017 9:49 PM CDT) Narrative Performed At EXAMINATION: MRI BRAIN WO CONTRAST [facility] CLINICAL HISTORY: Focal neuro deficit6 hrsstroke suspected, LE weakness COMPARISON:CT head 10/13/2017 TECHNIQUE: Multiplanar and multisequence MRI imaging of the brain was obtained without contrast. FINDINGS: No evidence of acute intracranial hemorrhage, mass, mass effect, acute infarct or midline shift. Small nonspecific T2 FLAIR hyperintense linear focus in the right centrum semiovale which may reflect sequela of minimal chronic microvascular ischemic change. Ventricles and sulci are normal in appearance for age. No abnormal susceptibility. Basal cisterns are clear. Major intracranial flow voids are maintained. Orbits are normal in appearance. Visualized paranasal sinuses and mastoid air cells are clear. IMPRESSION: 1. No acute intracranial abnormality. [id number] Procedure Note Hm Interface, Radiology Results [facility] - 10/16/2017 9:59 PM CDT EXAMINATION: MRI BRAIN WO CONTRAST CLINICAL HISTORY: Focal neuro deficit 6 hrs stroke suspected, LE weakness COMPARISON: CT head 10/13/2017 TECHNIQUE: Multiplanar and multisequence MRI imaging of the brain was obtained without contrast. FINDINGS: No evidence of acute intracranial hemorrhage, mass, mass effect, acute infarct or midline shift. Small nonspecific T2 FLAIR hyperintense linear focus in the right centrum semiovale which may reflect sequela of minimal chronic microvascular ischemic change. Ventricles and sulci are normal in appearance for age. No abnormal susceptibility. Basal cisterns are clear. Major intracranial flow voids are maintained. Orbits are normal in appearance. Visualized paranasal sinuses and mastoid air cells are clear. IMPRESSION: 1. No acute intracranial abnormality. [id number] Performing Organization Address City/State/Zipcode Phone Number [facility] [address] [place] [address] * Estimated GFR (10/15/2017 5:48 AM CDT) Only the most recent of 3 results within the time period is included. GFR Non Af Amer >90 mL/min/1.73 m2 [facility] PATHOLOGY AND GENOMIC MEDICINE GFR Af Amer >90 mL/min/1.73 m2 [facility] OF Comment: PATHOLOGY AND Chronic kidney disease: <60 GENOMIC MEDICINE mL/min/1.73m2 Kidney failure: <15 mL/min/1.73m2 The estimated GFR is calculated from the IDMS-traceable Modification of Diet in Renal Disease Equation. The accuracy of the calculation is poor when the creatinine is normal. Calculated values >90 mL/min/1.73m2 are not reported. This equation has not been validated in children (<18 years), women, the elderly (>70 years), or ethnic groups other than Caucasians and Americans. Specimen Plasma specimen Performing Organization Address City/State/Zipcode Phone Number [facility] [address] [place] [address] PATHOLOGY AND [employer] MEDICINE * CBC with platelet and differential (10/15/2017 5:48 AM CDT) Only the most recent of 3 results within the time period is included. WBC 4.81 4.50 - 11.00 k/uL [facility] OF PATHOLOGY AND GENOMIC MEDICINE RBC 4.17 (L) 4.20 - 5.50 m/uL [facility]OLOGY AND GENOMIC MEDICINE HGB 13.2 12.0 - 16.0 g/dL [facility] OF PATHOLOGY AND GENOMIC MEDICINE HCT 37.4 37.0 - 47.0 % [facility] OF [facility]OLOGY AND GENOMIC MEDICINE MCV 89.7 82.0 - 100.0 fL [facility] OF PATHOLOGY AND GENOMIC MEDICINE MCH 31.7 27.0 - 34.0 pg [facility] OF PATHOLOGY AND GENOMIC MEDICINE MCHC 35.3 31.0 - 37.0 g/dL [facility] OF PATHOLOGY AND GENOMIC MEDICINE RDW - SD 40.8 37.0 - 55.0 fL [facility] DEPARTMENT OF PATHOLOGY AND GENOMIC MEDICINE MPV 10.1 8.8 - 13.2 fL [facility] OF PATHOLOGY AND GENOMIC MEDICINE Platelet count 161 150 - 400 k/uL [facility] OF PATHOLOGY AND GENOMIC MEDICINE Nucleated RBC 0.00 /100 WBC [facility] OF PATHOLOGY AND GENOMIC MEDICINE Neutrophils 51.2 39.0 - 69.0 % [facility] OF PATHOLOGY AND GENOMIC MEDICINE Lymphocytes 37.4 25.0 - 45.0 % [facility] OF PATHOLOGY AND GENOMIC MEDICINE Monocytes 6.9 0.0 - 10.0 % [facility] PATHOLOGY AND GENOMIC MEDICINE Eosinophils 3.5 0.0 - 5.0 % [facility] OF PATHOLOGY AND GENOMIC MEDICINE Basophils 0.8 0.0 - 1.0 % [facility] OF PATHOLOGY AND GENOMIC MEDICINE Specimen Blood Performing Organization Address City/State/Zipcode Phone [place] [address] [place] [address] PATHOLOGY AND GENOMIC MEDICINE * ECG ED Preliminary Interpretation - NOT AN ORDER (10/14/2017 8:54 PM CDT) Narrative Performed At [facility] 10/14/20179:15 PM ECG ED Preliminary Interpretation - Not an Order Performed by: DARIO COLBERT Authorized by: DARIO COLBERT ECG reviewed by ED 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 Interpretation: Interpretation: normal Rate: ECG rate:83 ECG rate assessment: normal Rhythm: Rhythm: sinus rhythm Ectopy: Ectopy: none QRS: QRS axis:Normal QRS intervals:Normal ST segments: ST segments:Normal T waves: T waves: normal * CRITICAL CARE (10/14/2017 8:54 PM CDT) Narrative Performed At [facility] 10/14/20179:15 PM Critical Care Performed by: DARIO COLBERT Authorized by: DARIO COLBERT Critical care provider statement: Critical care time (minutes):30 Critical care time was exclusive of:Separately billable procedures and treating other patients Critical care was necessary to treat or prevent imminent or life-threatening deterioration of the following conditions: syncope, cardiac and rule out cord compression. Critical care was time spent personally by me on the following activities:Development of treatment plan with patient or surrogate, discussions with consultants, evaluation of patient's response to treatment, examination of patient, obtaining history from patient or surrogate, review of old charts, re-evaluation of patient's condition, pulse oximetry, ordering and review of radiographic studies, ordering and review of laboratory studies and ordering and performing treatments and interventions * ECG 12 lead (10/14/2017 5:24 PM CDT) Only the most recent of 3 results within the time period is included. Ventricular rate 97 [facility] Atrial rate 97 [facility] KS interval 160 [facility] QRSD interval 94 [facility] QT interval 356 [facility] QTC interval 452 [facility] P axis 1 51 [facility] QRS axis 1 52 [facility] T wave axis 0 [facility] EKG impression Normal sinus rhythm with sinus [facility] MUSE arrhythmia-Normal ECG-In automated comparison with ECG of 14-OCT-2017 14:14,-Inverted T waves have replaced nonspecific T wave abnormality in Inferior leads- Performing Organization Address City/State/Zipcode Phone Number [facility] [address] [place] [address] * Echocardiogram complete w contrast and 3D if needed (10/14/2017 1:15 PM CDT) Velocity Ratio (V1/V2) 0.89 m/s [facility] IVS,d 1.11 cm [facility] Ao root annulus 3.29 cm [facility] EF 58.28 % [facility] LVPWD,d 1.15 cm [facility] AoV Mean PG 1.73 mmHg [facility] AV LVOT peak gradient 2.75 mmHg [facility] MV valve area p 1/2 4.99 cm2 [facility] method E/A ratio 0.74 [facility] E wave decelartion time 139.80 msec [facility] LVOT Diam,S 2.08 cm [facility] LVOT area 3.40 cm2 [facility] LVOT Vmax 0.83 m/s [facility] LVOT VTI 0.13 m [facility] AoV Peak PG 3.45 mmHg [facility] MV Peak E Efrem 0.58 m/s [facility] MV stenosis pressure 1/2 44.10 ms [facility] time MV Peak A Efrem 0.78 m/s [facility] LV Vol,s A2C 20.94 mL [facility] LV Vol,d A2C 51.19 mL [facility] AoV Area, Vmax 3.04 cm2 [facility] AoV Area, VTI 3.50 cm2 [facility] AoV Vmax 0.93 m/s [facility] LA Area d A4C 27 cm2 [facility] LV,d 3.80 cm [facility] LV,s 2.65 cm [facility] LV Vol,d A4C 52.97 ml [facility] LV Vol,s A4C 26.25 ml [facility] MV E A ratio 0.75 mmHg [facility] LV SYS VOL 25.83 ml [facility] LV SUN VOL 61.91 ml [facility] LA diam s 3.70 cm [facility] LA Vol MOD A4C 27.10 ml [facility] LV SV Teich 2D 36.08 ml [facility] LVOT SI 18.84 ml/m2 [facility] AoV Cusp sep 1.89 [facility] Aortic Root 3.30 cm [facility] AoV Vmn 0.62 [facility] IVS s 2D 1.40 [facility] LA Ao Ratio Mmode 1.13 [facility] KS End Sun Grad 1.62 [facility] KS End Diat Efrem 0.64 [facility] D E excurs 1.40 [facility] E f slope 0.06 [facility] E prime lat 0.10 [facility] E tracy sept 0.08 [facility] PV acc T slope 5.50 [facility] PV AT 134.95 msec [facility] AoV VTI 0.13 m [facility] LV EF,A2C 59.09 % [facility] LV EF,A4C 50.45 % [facility] LV EF,BP 54.23 % [facility] Eugenio Volcano,d A2C 5.98 cm [facility] Eugenio Volcano,d A4C 6.20 cm [facility] Eugenio Volcano,s A2C 4.97 cm [facility] Eugenio Volcano,s A4C 5.32 cm [facility] LV SV,A2C 30.25 % [facility] LV SV,A4C 26.73 % [facility] LV Vol,d BP 52.57 ml [facility] LV Vol,s BP 24.06 nl [facility] LVOT Vmn 0.61 [facility] LVOT mean grad 1.61 mmHg [facility] LVPW s PLAX 1.41 cm [facility] MV Decel slope 4.15 m/s2 [facility] Narrative Performed At [facility] The left ventricle chamber size is normal. Left Ventricular ejection fraction is 55 - 60%. No pericardial effusion Spectral Doppler shows impaired relaxation pattern of left ventricular diastolic filling. Performing Organization Address City/State/Zipcode Phone Number [facility] [address] [place] [address] * Troponin (10/14/2017 9:10 AM CDT) Only the most recent of 3 results within the time period is included. Troponin <0.300 0.000 - 0.300 ng/mL [facility]PART[facility] OF Comment: PATHOLOGY AND 0.30 - 1.49 GENOMIC MEDICINE ng/mlMay indicate increased risk of acute coronary syndrome. >=1.5 ng/ml Consistent with acute myocardial infarction. The diagnostic value of a single normal or non-diagnostic result is questionable.Serial samples at 2-6 hour intervals are required to rule out acute myocardial injury. Specimen Plasma specimen Performing Organization Address City/[facility] Phone Number [address] [place] [address] PATHOLOGY AND GENOMIC MEDICINE * Comprehensive metabolic panel (10/14/2017 9:10 AM CDT) Only the most recent of 2 results within the time period is included. Sodium 136 135 - 148 mEq/L [facility] DEPARTMENT OF PATHOLOGY AND GENOMIC MEDICINE Potassium 3.9 3.5 - 5.0 mEq/L [facility] DE[facility]MENT OF PATHOLOGY AND GENOMIC MEDICINE Chloride 98 98 - 112 mEq/L [facility] OF PATHOLOGY AND GENOMIC MEDICINE CO2 24 24 - 31 mEq/L [facility] DE[facility]MENT OF PATHOLOGY AND GENOMIC MEDICINE Anion gap 14@ANIO 7 - 15 mEq/L [facility] DE[facility]MENT OF PATHOLOGY AND GENOMIC MEDICINE BUN 11 6 - 20 mg/dL [facility] DE[facility]MENT OF PATHOLOGY AND GENOMIC MEDICINE Creatinine 0.8 0.50 - 0.90 mg/dL [facility] DE[facility]MENT OF PATHOLOGY AND GENOMIC MEDICINE Glucose 285 (H) 65 - 99 mg/dL [facility] DE[facility]MENT OF PATHOLOGY AND GENOMIC MEDICINE Calcium 9.7 8.3 - 10.2 mg/dL [facility] DE[facility]MENT OF PATHOLOGY AND GENOMIC MEDICINE Protein 7.8 6.3 - 8.3 g/dL [facility] OF Comment: PATHOLOGY AND [place] GENOMIC MEDICINE 4.6-7.0 g/dL 1 week 4.4-7.6 g/dL 7 months-1year 5.1-7.3 g/dL 1-2 years5.6-7 .5 g/dL >3 years6.0-8 .0 g/dL 18-150 6.3-8.3 g/dL Albumin 4.4 3.5 - 5.0 g/dL [facility] DEPARTMENT OF PATHOLOGY AND GENOMIC MEDICINE A/G ratio 1.3 0.7 - 3.8 [facility] DE[facility]MENT OF PATHOLOGY AND GENOMIC MEDICINE Alkaline phosphatase 109 (H) 35 - 104 U/L [facility] DE[facility]MENT OF PATHOLOGY AND GENOMIC MEDICINE AST 50 (H) 10 - 35 U/L [facility] OF PATHOLOGY AND GENOMIC MEDICINE ALT 63 (H) 5 - 50 U/L [facility] OF PATHOLOGY AND GENOMIC MEDICINE Total bilirubin 0.6 0.0 - 1.2 mg/dL [facility] OF PATHOLOGY AND GENOMIC MEDICINE Specimen Plasma specimen Performing Organization Address City/[facility] Phone Number [facility] [id number] [place] [address] [place] [address] PATHOLOGY [facility] * Hemoglobin A1c (10/14/2017 4:50 AM CDT) Hemoglobin A1C 9.3 (H) 4.0 - 6.0 % [facility] DEPARTMENT OF Comment: PATHOLOGY AND GENOMIC MEDICINE Less than 6% - Goal of therapy for Type II Diabetes Less than 7%-Goal of therapy for Type I Diabetes Less than 8%-Accepta ble control for Type I or Type II Diabetes Greater than 8%-Unacceptabl e control; action indicated. (ADA94) Specimen Blood Performing Organization Address City/[facility]/Zipcode Phone Number [facility] [id number] [place] [address] [place] [address] [facility] [employer] [facility] * Lipid panel (10/14/2017 4:50 AM CDT) Cholesterol 130 <200 mg/dL [facility] OF PATHOLOGY AND GENOMIC MEDICINE Triglycerides 297 (H) <150 mg/dL [facility] PATHOLOGY AND GENOMIC MEDICINE HDL cholesterol 35 (L) >40 mg/dL [facility] DEPARTMENT OF PATHOLOGY AND GENOMIC MEDICINE LDL cholesterol 53Comment: Result obtained by <100 mg/dL [facility] DEPARTMENT OF direct LDL measurement PATHOLOGY AND GENOMIC MEDICINE Lipid panel SeeBelow [facility] DEPARTMENT OF interpretation Comment: PATHOLOGY AND Total Cholesterol GENOMIC MEDICINE (mg/dL) <200 Desirable 200-239Borderline -high >=240High Triglycerides (mg/dL) <150 Normal 150-199Borderline -high 200-499High >=500Very high HDL Cholesterol (mg/dL) <40Low (male) <40Low (female) LDL Cholesterol (mg/dL) <100 Optimal 100-129Near or above optimal 130-159Borderline -high 160-189High >=190Very high Risk Catergories that modify LDL goals. Risk Catergories LDL goal (mg/dL) CHD and CHD risk equivalent<100 (10-year risk >20%) Multiple (2+) risk factors <130 (10-year risk=<20%) 0-1 risk factors <160 (<10-year risk) Defining levels of lipids in metabolic syndrome Triglycerides >=150 mg/dL HDL Cholesterol Men <40 mg/dL Women <40 mg/dL Non-HDL cholesterol is a second target for therapy in persons with high triglycerides (>=200 mg/dL) Specimen Plasma specimen Performing Organization Address City/State/Zipcode Phone [place] [address] [place] [address] PATHOLOGY AND GENOMIC MEDICINE * MRI Lumbar Spine Wo Contrast (10/14/2017 1:27 AM CDT) Narrative Performed At EXAMINATION: MRI LUMBAR SPINE WO CONTRAST [facility] CLINICAL HISTORY: cord compression series COMPARISON:None TECHNIQUE: Multiplanar multisequence noncontrast enhanced examination was performed of the Lumbar spine. FINDINGS: The vertebral bodies are normal in signal and morphology. No fracture, infection, or bony neoplasm. The visible cord and the conus are unremarkable. There are no epidural or intradural abnormalities. Conus medullaris terminates at L1-L2. The paravertebral and paraspinous soft tissues are normal. Lumbar spine alignment is grossly preserved with normal lordosis without significant subluxation. Axial images through the disc spaces demonstrate the following: L1-L2: No significant posterior disc disease, spinal canal or neural foraminal stenosis. L2-L3: No significant posterior disc disease, spinal canal or neural foraminal stenosis. L3-L4: No significant posterior disc disease, spinal canal or neural foraminal stenosis. L4-L5: Diffuse disc bulge minimally indents the ventral thecal sac and contributes to mild bilateral foraminal stenosis. L5-S1: Disc bulge asymmetric to the left contributes to mild left foraminal stenosis. The right foramen and central canal are patent. IMPRESSION: No significant abnormality. No evidence of cord compression. [facility]-[id number] Procedure Note Interface, Radiology Results - 10/14/2017 1:35 AM CDT EXAMINATION: MRI LUMBAR SPINE WO CONTRAST CLINICAL HISTORY: cord compression series COMPARISON: None TECHNIQUE: Multiplanar multisequence noncontrast enhanced examination was performed of the Lumbar spine. FINDINGS: The vertebral bodies are normal in signal and morphology. No fracture, infection, or bony neoplasm. The visible cord and the conus are unremarkable. There are no epidural or intradural abnormalities. Conus medullaris terminates at L1-L2. The paravertebral and paraspinous soft tissues are normal. Lumbar spine alignment is grossly preserved with normal lordosis without significant subluxation. Axial images through the disc spaces demonstrate the following: L1-L2: No significant posterior disc disease, spinal canal or neural foraminal stenosis. L2-L3: No significant posterior disc disease, spinal canal or neural foraminal stenosis. L3-L4: No significant posterior disc disease, spinal canal or neural foraminal stenosis. L4-L5: Diffuse disc bulge minimally indents the ventral thecal sac and contributes to mild bilateral foraminal stenosis. L5-S1: Disc bulge asymmetric to the left contributes to mild left foraminal stenosis. The right foramen and central canal are patent. IMPRESSION: No significant abnormality. No evidence of cord compression. [id number] Performing Organization Address City/State/Zipcode Phone Number [facility] [address] [place] [address] * MRI Thoracic Spine Wo Contrast (10/14/2017 12:59 AM CDT) Narrative Performed At EXAMINATION: MRI THORACIC SPINE WO CONTRAST [facility] CLINICAL HISTORY: cord compression series COMPARISON:None TECHNIQUE: Multiplanar MRI of the thoracic spine without contrast FINDINGS: The vertebral bodies are normal in signal and morphology. No fracture, infection, or bony neoplasm. No cord signal abnormality identified. No focal marrow lesions. No masses are present in the visualized prevertebral soft tissues. Alignment is preserved. Discs are maintained. No central or foraminal narrowing. IMPRESSION: No significant thoracic abnormality. No evidence of cord compression. [facility]-[id number] Procedure Note Interface, Radiology Results - 10/14/2017 1:20 AM CDT EXAMINATION: MRI THORACIC SPINE WO CONTRAST CLINICAL HISTORY: cord compression series COMPARISON: None TECHNIQUE: Multiplanar MRI of the thoracic spine without contrast FINDINGS: The vertebral bodies are normal in signal and morphology. No fracture, infection, or bony neoplasm. No cord signal abnormality identified. No focal marrow lesions. No masses are present in the visualized prevertebral soft tissues. Alignment is preserved. Discs are maintained. No central or foraminal narrowing. IMPRESSION: No significant thoracic abnormality. No evidence of cord compression. [id number] Performing Organization Address [facility] Phone Number [facility] [address] [place] [address] * MRI Cervical Spine Wo Contrast (10/14/2017 12:48 AM CDT) Narrative Performed At EXAMINATION:[facility]ERVICAL SPINE WO CONTRAST [facility] CL[facility]ICAL H[facility]:cord compression series COMPARISON: None. FINDINGS: Noncontrast MRI of the cervical spine is interpreted. Cervical cord is normal in volume and signal intensity. Bone marrow signal is normal. C2-3: Unremarkable. C3-4: Tiny central disc protrusion. C4-5: Minimal disc degenerative changes. C5-6: Minimal disc degenerative changes. C6-7: Unremarkable. C7-T1: Unremarkable. The paraspinous soft tissues are unremarkable. IMPRESSION: No significant cervical canal stenosis. The cervical cord is normal in volume and signal intensity. [facility]-[id number] Procedure Note [facility], Radiology Results - 10/14/2017 12:55 AM CDT EXAMINATION: MRI CERVICAL SPINE WO CONTRAST CLINICAL HISTORY: cord compression series COMPARISON: None. FINDINGS: Noncontrast MRI of the cervical spine is interpreted. Cervical cord is normal in volume and signal intensity. Bone marrow signal is normal. C2-3: Unremarkable. C3-4: Tiny central disc protrusion. C4-5: Minimal disc degenerative changes. C5-6: Minimal disc degenerative changes. C6-7: Unremarkable. C7-T1: Unremarkable. The paraspinous soft tissues are unremarkable. IMPRESSION: No significant cervical canal stenosis. The cervical cord is normal in volume and signal intensity. [id number] Performing Organization Address City/State/Zipcode Phone Number [facility] [address] [place] [address] * CT Angiogram Pe Chest (10/13/2017 11:46 PM CDT) Narrative Performed At CT ANGIOGRAM PE CHEST [facility] CLINICAL INDICATION: PE suspectedintermediate probpositive D-dimer TECHNIQUE:CT angiographic images of the chest were obtained during intravenous administration of iodinated contrast.Computerized, reformatted images and 3-D MIP images were obtained and archived (per CT pulmonary embolism protocol). CT scans are performed using radiation dose reduction techniques (iterative reconstruction and/or automated exposure control). Technical factors are evaluated and adjusted to ensure appropriate moderation of exposure. Automated dose management technology is applied to adjust radiation exposure while achieving a diagnostic quality image. COMPARISON:None. FINDINGS: Pulmonary arteries: Diagnostic quality of study is adequate for the evaluation of pulmonary embolism. There is no evidence of acute or chronic pulmonary embolism. No evidence of right heart strain. The main pulmonary artery is normal in diameter. Aorta:No aneurysm. Lungs and large airways:Clear. Pleura:No pleural effusion, pleural thickening, or pneumothorax. Heart and pericardium:Heart size is normal. No pericardial effusion. Mediastinum and carmen:No mass or hematoma. Lymph nodes:No pathological adenopathy in the carmen, axilla or mediastinum. Chest wall:Unremarkable. Bones:Normal. Upper abdomen: Hepatic steatosis. Otherwise no abnormalities in the upper abdomen. IMPRESSION: 1. Negative CTA examination for pulmonary embolism. 2. Lungs without focal or confluent airspace consolidation. [id number] Procedure Note Interface, Radiology Results Incoming - 10/13/2017 11:[address] ANGIOGRAM PE CHEST CLINICAL INDICATION: PE suspected intermediate prob positive D-dimer TECHNIQUE: CT angiographic images of the chest were obtained during intravenous administration of iodinated contrast. Computerized, reformatted images and 3-D MIP images were obtained and archived (per CT pulmonary embolism protocol). CT scans are performed using radiation dose reduction techniques (iterative reconstruction and/or automated exposure control). Technical factors are evaluated and adjusted to ensure appropriate moderation of exposure. Automated dose management technology is applied to adjust radiation exposure while achieving a diagnostic quality image. COMPARISON: None. FINDINGS: Pulmonary arteries: Diagnostic quality of study is adequate for the evaluation of pulmonary embolism. There is no evidence of acute or chronic pulmonary embolism. No evidence of right heart strain. The main pulmonary artery is normal in diameter. Aorta: No aneurysm. Lungs and large airways: Clear. Pleura: No pleural effusion, pleural thickening, or pneumothorax. Heart and pericardium: Heart size is normal. No pericardial effusion. Mediastinum and carmen: No mass or hematoma. Lymph nodes: No pathological adenopathy in the carmen, axilla or mediastinum. Chest wall: Unremarkable. Bones: Normal. Upper abdomen: Hepatic steatosis. Otherwise no abnormalities in the upper abdomen. IMPRESSION: 1. Negative CTA examination for pulmonary embolism. 2. Lungs without focal or confluent airspace consolidation. [id number] Performing Organization Address City/State/Zipcode Phone Number [facility] [address] [place] [address] * Urinalysis screen and microscopy, with reflex to culture (10/13/2017 11:40 PM CDT) Specimen site Clean catch [facility] DEPARTMENT OF PATHOLOGY AND GENOMIC MEDICINE Color, UA Yellow [facility] OF PATHOLOGY AND GENOMIC MEDICINE Appearance, UA Slightly-Cloudy [facility] DEPARTMENT OF PATHOLOGY AND GENOMIC MEDICINE Specific gravity, UA 1.024 1.001 - 1.035 [facility] DE[facility]MENT OF PATHOLOGY AND GENOMIC MEDICINE pH, UA 5.0 5.0 - 8.5 [facility] DE[facility]MENT OF PATHOLOGY AND GENOMIC MEDICINE Protein, UA Negative Negative [facility] OF PATHOLOGY AND GENOMIC MEDICINE Glucose, UA 3+ (A) Negative [facility]MENT OF PATHOLOGY AND GENOMIC MEDICINE Ketones, UA Negative Negative [facility]MENT OF PATHOLOGY AND GENOMIC MEDICINE Bilirubin, UA Negative Negative [facility] DE[facility]MENT OF PATHOLOGY AND GENOMIC MEDICINE Blood, UA Negative Negative [facility]MENT OF PATHOLOGY AND GENOMIC MEDICINE Nitrite, UA Negative Negative [facility] DE[facility]MENT OF PATHOLOGY AND GENOMIC MEDICINE Urobilinogen, UA Negative <2.0 [facility]MENT OF PATHOLOGY AND GENOMIC MEDICINE Leukocyte esterase, UA Negative Negative [facility] DE[facility]MENT OF PATHOLOGY AND GENOMIC MEDICINE Epithelial cells, UA Many /HPF [facility] OF PATHOLOGY AND GENOMIC MEDICINE Round epithelial cells, Few 0 - 1 /HPF [facility]A PATHOLOGY AND GENOMIC MEDICINE WBC, UA 0-5 0 - 4 /HPF [facility] OF PATHOLOGY AND GENOMIC MEDICINE RBC, UA 0-5 0 - 5 /HPF [facility] DEPARTMENT OF PATHOLOGY AND GENOMIC MEDICINE Bacteria, UA Moderate (A) None seen [facility]PART[facility] OF PATHOLOGY AND GENOMIC MEDICINE Yeast, UA None seen [facility] DEPARTMENT OF PATHOLOGY AND GENOMIC MEDICINE Yeast with pseudohyphae, None seen [facility] DEPART[facility] OF PATHOLOGY AND GENOMIC MEDICINE Specimen Urine Performing Organization Address City/[facility] Phone Number [facility] [phone] [place] [address] Dr [place] [phone] PATHOLOGY AND GENOMIC MEDICINE * Urine culture (10/13/2017 11:40 PM CDT) Urine culture isolate Mixed Gram positive saw [facility] DEPARTMENT OF 10-4 cfu/ml PATHOLOGY AND (A) GENOMIC MEDICINE Comment: Specimen Information Specimen Source: Urine Specimen Site: Clean catch Urine culture isolate Mixed Gram negative rods [facility] DEPARTMENT OF <10-1 cfu/ml PATHOLOGY AND (A) GENOMIC MEDICINE Specimen Urine Performing Organization Address City/[facility] Cent[facility]ode Phone Number [place] [phone] [place] [address] PATHOLOGY AND GENOMIC MEDICINE * Partial thromboplastin time, activated (10/13/2017 10:30 PM CDT) PTT 29.2 23.0 - 36.0 sec [facility] DEPARTMENT OF Comment: PATHOLOGY AND PTT therapeutic range for GENOMIC MEDICINE unfractionated heparin is 61.0-112.0 seconds which corresponds to Anti-Xa 0.3-0.7 U/ml. Specimen Blood Performing Organization Address [facility] Cent[facility]ode Phone Number [address] [place] [phone] PATHOLOGY AND GENOMIC MEDICINE * Prothrombin time with INR (10/13/2017 10:30 PM CDT) Prothrombin time 13.9 12.0 - 15.0 sec [facility] DEPARTMENT OF PATHOLOGY AND GENOMIC MEDICINE INR 1.1 [facility] DEPARTMENT OF Comment: PATHOLOGY AND The International Normalized GENOMIC MEDICINE Ratio (INR) is a therapeutic monitoring tool for patients who are stable on oral anticoagulant therapy. An INR of 2.0-3.0 is suggested for deep vein thrombosis/pulmonary embolism. Specimen Blood Performing Organization Address City/[facility] Cent[facility]ode Phone Number [address] [place] [address] PATHOLOGY AND GENOMIC MEDICINE * D-dimer (10/13/2017 10:30 PM CDT) D-dimer 0.67 (H) 0.00 - 0.40 ug/mL FEU [facility] DEPARTMENT OF Comment: PATHOLOGY AND Units are ug/ml Fibrinogen GENOMIC MEDICINE Equivalent Unit. When combined with low clinical probability, D-dimer results of less than 0.5 ug/ml FEU have a good negativepredictive value in excluding PE or DVT. For D-dimer results greater than 0.5ug/ml FEU further testing is indicated if PE or DVT is suspectedclinically. Elevated D-dimer results have been reported in DVT, PE, and DIC cases and may indicate the presence of a clot. D-dimer results may be elevated due to old age, , inflammatory diseases, trauma, post-operative states, sepsis, and malignancies. Specimen Blood Performing Organization [facility] Number [address] [place] [address] PATHOLOGY AND [facility] * Thyroid stimulating hormone (10/13/2017 10:30 PM CDT) TSH 1.70 0.27 - 4.20 uIU/mL [facility] DEPART[facility] PATHOLOGY [facility] Specimen Plasma specimen Performing [address] [place] [address] PATHOLOGY [facility] * T4, free (10/13/2017 10:30 PM CDT) T4, free 0.96 0.90 - 1.70 ng/dL [facility] PATHOLOGY [facility] Specimen Plasma specimen Performing [facility] Number [address] [place] [address] PATHOLOGY AND [facility] * B natriuretic peptide (10/13/2017 10:30 PM CDT) BNP 2 0 - 100 pg/mL [facility] DEPARTMENT PATHOLOGY AND [employer] [facility] Specimen Blood Performing Organization [facility] Number [address] [place] [address] PATHOLOGY [facility] * Magnesium level (10/13/2017 10:30 PM CDT) Magnesium 1.6 1.6 - 2.6 mg/dL [facility] DEPARTMENT PATHOLOGY AND [employer] [facility] Specimen Plasma specimen Performing Organization [facility] Number [address] [place] [address] PATHOLOGY AND GENOMIC MEDICINE * Creatine kinase, total (CPK) (10/13/2017 10:30 PM CDT) Creatine kinase 78 26 - 192 U/L [facility] DEPARTMENT OF PATHOLOGY AND GENOMIC MEDICINE Specimen Plasma specimen Performing Organization Address City/State/Zipcode Phone [place] [address] [place] [address] PATHOLOGY AND GENOMIC MEDICINE * CT Head Wo Contrast (10/13/2017 9:12 PM CDT) Narrative Performed At EXAMINATION: CT HEAD WO CONTRAST [facility] CLINICAL HISTORY: syncope COMPARISON:None. TECHNIQUE: Noncontrast enhanced images of the brain were obtained from the skull base to the vertex. Both soft tissue and bone reconstruction algorithms were performed. CT scans are performed using radiation dose reduction techniques (iterative reconstruction and/or automated exposure control). Technical factors are evaluated and adjusted to ensure appropriate moderation of exposure. Automated dose management technology is applied to adjust radiation exposure while achieving a diagnostic quality image. FINDINGS: The brain parenchyma is unremarkable. The holland-white matter differentiation is preserved. No evidence of acute intra or extra-axial hemorrhage, mass, mass effect or acute territorial infarction. There is no acute hydrocephalus. Basal cisterns are patent. No acute soft tissue hematoma or laceration. No skull fractures or aggressive bony lesions. Paranasal sinuses and mastoid air cells are clear. Orbits are normal. IMPRESSION: No acute intracranial abnormality identified. [facility]-[id number] Procedure Note Interface, Radiology Results Incoming - 10/13/2017 9:24 PM CDT EXAMINATION: CT HEAD WO CONTRAST CLINICAL HISTORY: syncope COMPARISON: None. TECHNIQUE: Noncontrast enhanced images of the brain were obtained from the skull base to the vertex. Both soft tissue and bone reconstruction algorithms were performed. CT scans are performed using radiation dose reduction techniques (iterative reconstruction and/or automated exposure control). Technical factors are evaluated and adjusted to ensure appropriate moderation of exposure. Automated dose management technology is applied to adjust radiation exposure while achieving a diagnostic quality image. FINDINGS: The brain parenchyma is unremarkable. The holland-white matter differentiation is preserved. No evidence of acute intra or extra-axial hemorrhage, mass, mass effect or acute territorial infarction. There is no acute hydrocephalus. Basal cisterns are patent. No acute soft tissue hematoma or laceration. No skull fractures or aggressive bony lesions. Paranasal sinuses and mastoid air cells are clear. Orbits are normal. IMPRESSION: No acute intracranial abnormality identified. [facility]-[id number] Performing Organization Address City/[facility]/Zipcode Phone Number [address] [place] [address] * XR Chest 1 Vw Portable (10/13/2017 8:59 PM CDT) Narrative Performed At EXAMINATION:XR CHEST 1 VW PORTABLE [facility] CLINICAL HISTORY: syncope COMPARISON:None IMPRESSION: No active disease in the chest. Lungs are clear. Cardiomediastinal silhouette is within normal limits. No effusion or pneumothorax noted. Visualized osseous structures are intact. [facility]-[id number] Procedure Note Hm Interface, Radiology Results Incoming - 10/13/2017 9:04 PM CDT EXAMINATION: XR CHEST 1 VW PORTABLE CLINICAL HISTORY: syncope COMPARISON: None IMPRESSION: No active disease in the chest. Lungs are clear. Cardiomediastinal silhouette is within normal limits. No effusion or pneumothorax noted. Visualized osseous structures are intact. [facility]-[id number] Performing Organization Address [facility] Centercode Phone Number [address] [place] [address] after 02/06/2017 Insurance Payer Benefit Subscriber ID Type Phone Address Plan / Group HUMANA MEDICARE HUMANA xxxxxxxxx PPO MEDICARE PPO/PFFS/E [facility] Advance Directives Patient has advance care planning documents on file. For more information, rosie e contact: Pilo Donaldson [address] [place] [address]
--- OUTSIDE RECORDS SUMMARY | 2018-02-07 18:58 | XMS REPORT | Continuity of Care Document ---
Author Author [facility] Interface Address Unknown Phone Unavailable Problems Problem Status Onset Date Classification Date Reported Comments Source Headache Active Problem 04/16/2017 [facility] Medications Medication Details Route Status Patient Instructions Ordering Provider Order Date Source Zolpidem Tartrate (Ambien) 10 Mg Tablet, 5 Mg Oral Bedtime Active 04/06/2017 [facility] Albuterol Sulfate (Proventil Hfa) 6.7 Gm Hfa.aer.ad, 2 Inh Inhalation Four Times Daily Active 04/05/2017 [facility] Bupropion Hcl (Bupropion Hcl Sr) 100 Mg Tablet.er, 150 Mg Oral Twice A Day Active 04/05/2017 [facility] Diphenhydramine Hcl 50 Mg Capsule, 50 Mg Oral Bedtime Active 04/05/2017 [facility] Insulin Glargine (Lantus 3ML Pen) 100 Units/1 Ml Inj, 40 Subcutaneously Bedtime Active 04/05/2017 [facility] Insulin Lispro (Humalog) 100 Unit/1 Ml Cartridge, 16-18 Subcutaneously Before Meals Active 04/05/2017 [facility] Lisinopril (Zestril*) 20 Mg Tablet, 20 Mg Oral Daily Active 04/05/2017 [facility] Metoprolol Succinate 50 Mg Tab.er.24h, 50 Mg Oral Daily Active 04/05/2017 [facility] Tizanidine Hcl 4 Mg Capsule, 4 Mg Oral Bedtime Active 04/05/2017 [facility] Trifluoperazine Hcl 2 Mg Tablet, 2 Mg Oral Bedtime Active 04/05/2017 [facility] Zolpidem Tartrate (Ambien) 10 Mg Tablet, Active 04/05/2017 [facility] Atorvastatin Calcium (Lipitor) 80 Mg Tablet, 80 Mg Oral Rt Daily Active 07/29/2014 [facility] Metoprolol Succinate 25 Mg Tab.er.24h, 25 Mg Oral Daily Active 07/29/2014 [facility] Trifluoperazine Hcl 5 Mg Tablet, 5 Mg Oral Rt Daily Active 07/29/2014 [facility] Hydralazine Hcl 10 Mg Tablet, 25 Mg Oral Three Times A Day Active 03/01/2013 [facility] Metoprolol Succinate (Toprol Xl) 25 Mg Tab.er.24h, Daily Active 03/01/2013 [facility] Atorvastatin Calcium (Lipitor) 80 Mg Tablet, Bid Active 11/01/2012 [facility] Duloxetine Hcl (Cymbalta) 20 Mg Capcr, Bid Active 11/01/2012 [facility] Albuterol Sulfate (Ventolin Hfa) 18 Gm Hfa.aer.ad Daily Active [facility] Amlodipine Besylate 5 Mg Tablet Daily Active [facility] Aspirin (Aspir 81) 81 Mg Tablet. Daily Active [facility] Atorvastatin Calcium 40 Mg Tablet Today At 9:00PM Active [facility] Budesonide/Formoterol Fumarate (Symbicort 160-4.5 Mcg Inhaler) 10.2 Gm Hfa.aer.ad Four Times Daily Active [facility] Buspirone Hcl 10 Mg Tablet Three Times A Day Active [facility] Gabapentin 300 Mg Capsule Daily Active [facility] Insulin Aspart (Novolog) 100 Units/1 Ml Inj Three Times A Day Active [facility] Insulin Detemir (Levemir) 100 Unit/1 Ml Vial Bedtime Active [facility] Ipratropium/Albuterol Sulfate (Combivent Respimat Inhal [place]) 4 Gm Aer.w.adap Four Times Daily Active [facility] Metformin Hcl 1,000 Mg Tablet Twice A Day Active [facility] Quetiapine Fumarate (Seroquel) 25 Mg Tablet Bedtime Active [facility] Sertraline Hcl (Zoloft) 50 Mg Tablet Bedtime Active [facility] Topiramate 25 Mg Tablet Daily Active [facility] Topiramate (Topamax*) 100 Mg Tablet Twice A Day Active [facility] Allergies, Adverse Reactions, Alerts Substance Category Reaction Severity Reaction type Status Date Reported Comments Source Penicillin Unknown Allergy to Substance Active 07/09/2016 [facility] Ibuprofen Unknown Allergy to Substance Active 07/09/2016 [facility] Hydromorphone Intermediate Allergy to Substance Active 07/09/2016 [facility] Immunizations Immunization Date Given Site Status Last Updated Comments Source Results Order Name Results Value Reference Range Date Interpretation Comments Source Capillary blood glucose measurement by glucometer (mass/volume) Capillary blood glucose measurement by glucometer (mass/volume) 137 70 - 120 04/06/2017 [facility] Automated blood basophil count (count/volume) Automated blood basophil count (count/volume) 0.1 0.0 - 0.1 04/06/2017 [facility] Automated blood basophil count as percentage of total leukocytes Automated blood basophil count as percentage of total leukocytes 0.7 0.0 - 1.0 04/06/2017 [facility] Automated blood eosinophil count Automated blood eosinophil count 0.3 0.0 - 0.4 04/06/2017 [facility] Automated blood eosinophil count as percentage of total leukocytes Automated blood eosinophil count as percentage of total leukocytes 4.2 0.0 - 6.0 04/06/2017 [facility] Automated blood hematocrit (volume fraction) Automated blood hematocrit (volume fraction) 37.6 34.2 - 44.1 04/06/2017 [facility] Automated blood lymphocyte count as percentage ot total leukocytes Automated blood lymphocyte count as percentage ot total leukocytes 32.9 18.0 - 39.1 04/06/2017 [facility] Automated blood monocyte count as percentage of total leukocytes Automated blood monocyte count as percentage of total leukocytes 8.9 4.4 - 11.3 04/06/2017 [facility] Automated blood neutrophil count Automated blood neutrophil count 3.7 2.1 - 6.9 04/06/2017 [facility] Automated blood platelet count (count/volume) Automated blood platelet count (count/volume) 207 140 - 360 04/06/2017 [facility] Automated blood segmented neutrophil count as percentage of total leukocytes Automated blood segmented neutrophil count as percentage of total leukocytes 53.2 38.7 - 80.0 04/06/2017 [facility] Automated erythrocyte mean corpuscular hemoglobin (mass per erythrocyte) Automated erythrocyte mean corpuscular hemoglobin (mass per erythrocyte) 30.8 28 - 32 04/06/2017 [facility] Automated erythrocyte mean corpuscular hemoglobin concentration measurement (mass/volume) Automated erythrocyte mean corpuscular hemoglobin concentration measurement (mass/volume) 35.4 31 - 35 04/06/2017 [facility] Automated erythrocyte mean corpuscular volume Automated erythrocyte mean corpuscular volume 87.0 81 - 99 04/06/2017 [facility] Blood erythrocytes automated count (number/volume) Blood erythrocytes automated count (number/volume) 4.32 3.6 - 5.1 04/06/2017 [facility] Blood hemoglobin measurement (moles/volume) Blood hemoglobin measurement (moles/volume) 13.3 12.0 - 16.0 04/06/2017 [facility] Blood leukocytes automated count (number/volume) Blood leukocytes automated count (number/volume) 6.95 4.8 - 10.8 04/06/2017 [facility] Blood lymphocytes count (number/volume) Blood lymphocytes count (number/volume) 2.3 1.0 - 3.2 04/06/2017 [facility] Blood monocytes automated count (number/volume) Blood monocytes automated count (number/volume) 0.6 0.2 - 0.8 04/06/2017 [facility] Red Cell Distribution Width 11.9 11.7 - 14.4 04/06/2017 [facility] IM GRANULOCYTES % 0.1 0.0 - 1.0 04/06/2017 [facility] Absolute Immature Granulocyte (auto 0.01 0 - 0.1 04/06/2017 [facility] Activated partial thromboplastin time (aPTT) in platelet poor plasma bycoagulation assay Activated partial thromboplastin time (aPTT) in platelet poor plasma bycoagulation assay 28.3 23.8 - 35.5 07/09/2016 [facility] Estimated glomerular filtration rate (GFR) determination Estimated glomerular filtration rate (GFR) determination 49 60 07/09/2016 [facility] Glucose measurement Glucose measurement 161 74 - 118 07/09/2016 [facility] INR in Platelet poor plasma by Coagulation assay INR in Platelet poor plasma by Coagulation assay 0.90 07/09/2016 [facility] Plasma globulin measurement (mass/volume) Plasma globulin measurement (mass/volume) 4.3 2.3 - 3.5 07/09/2016 [facility] Prothrombin time (PT) in platelet poor plasma by coagulation assay Prothrombin time (PT) in platelet poor plasma by coagulation assay 12.6 11.9 - 14.5 07/09/2016 [facility] Serum or plasma acetaminophen measurement by screening method (mass/volume) Serum or plasma acetaminophen measurement by screening method (mass/volume) null 10 - 30 07/09/2016 [facility] Serum or plasma alanine aminotransferase measurement (enzymatic activity/volume) Serum or plasma alanine aminotransferase measurement (enzymatic activity/volume) 69 0 - 55 07/09/2016 [facility] Serum or plasma albumin measurement (mass/volume) Serum or plasma albumin measurement (mass/volume) 4.0 3.5 - 5.0 07/09/2016 [facility] Serum or plasma albumin/globulin mass ratio Serum or plasma albumin/globulin mass ratio 0.9 0.8 - 2.0 07/09/2016 [facility] Serum or plasma alkaline phosphatase measurement (enzymatic activity/volume) Serum or plasma alkaline phosphatase measurement (enzymatic activity/volume) 70 40 - 150 07/09/2016 [facility] Serum or plasma anion gap Serum or plasma anion gap 16.7 8 - 16 07/09/2016 [facility] Serum or plasma calcium measurement (mass/volume) Serum or plasma calcium measurement (mass/volume) 9.3 8.4 - 10.2 07/09/2016 [facility] Serum or plasma carbon dioxide, total measurement (moles/volume) Serum or plasma carbon dioxide, total measurement (moles/volume) 19 22 - 29 07/09/2016 [facility] Serum or plasma chloride measurement (moles/volume) Serum or plasma chloride measurement (moles/volume) 107 98 - 107 07/09/2016 [facility] Serum or plasma creatine kinase MB measurement (mass/volume) Serum or plasma creatine kinase MB measurement (mass/volume) 1.70 0.00 - 5.00 07/09/2016 [facility] Serum or plasma creatine kinase measurement (enzymatic activity/volume) Serum or plasma creatine kinase measurement (enzymatic activity/volume) 157 29 - 168 07/09/2016 [facility] Serum or plasma creatinine measurement (mass/volume) Serum or plasma creatinine measurement (mass/volume) 1.20 0.57 - 1.11 07/09/2016 [facility] Serum or plasma magnesium measurement (mass/volume) Serum or plasma magnesium measurement (mass/volume) 1.7 1.3 - 2.1 07/09/2016 [facility] Serum or plasma potassium measurement (moles/volume) Serum or plasma potassium measurement (moles/volume) 3.7 3.5 - 5.1 07/09/2016 [facility] Serum or plasma protein measurement (mass/volume) Serum or plasma protein measurement (mass/volume) 8.3 6.5 - 8.1 07/09/2016 [facility] Serum or plasma sodium measurement (moles/volume) Serum or plasma sodium measurement (moles/volume) 139 136 - 145 07/09/2016 [facility] Serum or plasma thyrotropin measurement by detection limit <=0.005 miu/l (units/volume) Serum or plasma thyrotropin measurement by detection limit <=0.005 miu/l (units/volume) 2.741 0.350 - 4.940 07/09/2016 [facility] Serum or plasma total bilirubin measurement (mass/volume) Serum or plasma total bilirubin measurement (mass/volume) 0.3 0.2 - 1.2 07/09/2016 [facility] Serum or plasma urea nitrogen measurement (mass/volume) Serum or plasma urea nitrogen measurement (mass/volume) 14 7 - 26 07/09/2016 [facility] Serum or plasma urea nitrogen/creatinine mass ratio Serum or plasma urea nitrogen/creatinine mass ratio 12 6 - 25 07/09/2016 [facility] Troponin I measurement by highly sensitive enzyme immunoassay Troponin I measurement by highly sensitive enzyme immunoassay 0.003 0 - 0.300 07/09/2016 [facility] Aspartate Amino Transf (AST/SGOT) 40 5 - 34 07/09/2016 [facility] Automated urine sediment leukocyte count by microscopy (number/high power field) Automated urine sediment leukocyte count by microscopy (number/high power field) null 0 - 5 07/09/2016 [facility] Bacteria detection in urine sediment by light microscopy Bacteria detection in urine sediment by light microscopy MODERATE NONE 07/09/2016 [facility] Barbiturates screen, urine Barbiturates screen, urine NEGATIVE NEGATIVE 07/09/2016 [facility] Epithelial cells detection in urine sediment by light microscopy Epithelial cells detection in urine sediment by light microscopy MANY NONE 07/09/2016 [facility] Erythrocytes detection in urine sediment by light microscopy Erythrocytes detection in urine sediment by light microscopy null 0 - 5 07/09/2016 [facility] Specific gravity of Urine by Test strip Specific gravity of Urine by Test strip 1.020 1.010 - 1.025 07/09/2016 [facility] Urine amphetamines detection by screen method > 1000 ng/mL Urine amphetamines detection by screen method > 1000 ng/mL NEGATIVE NEGATIVE 07/09/2016 [facility] Urine benzodiazepines detection by screening method Urine benzodiazepines detection by screening method NEGATIVE NEGATIVE 07/09/2016 [facility] Urine cannabinoids detection by screening method Urine cannabinoids detection by screening method NEGATIVE NEGATIVE 07/09/2016 [facility] Urine clarity Urine clarity CLEAR CLEAR 07/09/2016 [facility] Urine cocaine measurement (mass/volume) Urine cocaine measurement (mass/volume) NEGATIVE NEGATIVE 07/09/2016 [facility] Urine color determination Urine color determination YELLOW YELLOW 07/09/2016 [facility] Urine erythrocytes detection Urine erythrocytes detection NEGATIVE NEGATIVE 07/09/2016 [facility] Urine glucose detection Urine glucose detection NEGATIVE NEGATIVE 07/09/2016 [facility] Urine ketones detection by automated test strip Urine ketones detection by automated test strip NEGATIVE NEGATIVE 07/09/2016 [facility] Urine leukocyte esterase detection by dipstick Urine leukocyte esterase detection by dipstick NEGATIVE NEGATIVE 07/09/2016 [facility] Urine nitrite detection Urine nitrite detection NEGATIVE NEGATIVE 07/09/2016 [facility] Urine opiates screening test Urine opiates screening test POSITIVE NEGATIVE 07/09/2016 [facility] Urine pH measurement by automated test strip Urine pH measurement by automated test strip 5 5 - 7 07/09/2016 [facility] Urine protein measurement by test strip (mass/volume) Urine protein measurement by test strip (mass/volume) NEGATIVE NEGATIVE 07/09/2016 [facility] Urine total bilirubin measurement (mass/volume) Urine total bilirubin measurement (mass/volume) NEGATIVE NEGATIVE 07/09/2016 [facility] Urine urobilinogen measurement by test strip (mass/volume) Urine urobilinogen measurement by test strip (mass/volume) 0.2 0.2 - 1 07/09/2016 [facility] Vital Signs Vital Sign Value Date Comments Source Encounters Location Location Details Encounter Type Encounter Number Reason For Visit Attending Provider ADM Date DC Date Status Source Departed Emergency Room [id number] ANDREI BRAMBILA MD 07/09/2016 07/09/2016 [facility] Departed Emergency Room [id number] ANDREI BRAMBILA MD 02/22/2017 02/23/2017 [facility] Departed Emergency Room [id number] ROBIN DENISE MD 04/01/2017 04/01/2017 [facility] Registered [facility] Day [facility] [id number] DANII DUTTON MD 04/06/2017 [facility] Departed Emergency Room [id number] GARY KO MD 04/15/2017 04/15/2017 [facility] Procedures Procedure Code Date Perfomer Comments Source Colonoscopy with biopsy [id number] 04/06/2017 NATO [facility] X-ray of chest, two views [id number] 07/09/2016 PATTY [facility]
--- OUTSIDE RECORDS SUMMARY | 2018-02-07 18:58 | XMS REPORT | Summary of Care ---
Author Author [facility] Address [address] [place] [address] Phone Unavailable Care Team Providers Care Landscaping Supervisor Name Role Phone JOSE HERNANDEZ M.D. Unavailable [...] 0 JOSE HERNANDEZ M.D. * Start : 17-Apr-2017 Active BusPIRone HCl - 15 MG Oral [...] Planned Encounters Appointment; JOSE HERNANDEZ M.D. On: 15-May-2017 12:00 Instructions Name Dates Details Instructions not [...]
[2018-02-07] MEDS ORDERED: PROMETHAZINE HCL (IM) 25 MG/ML VIAL IM ONE (19:15)
== END 2018-02-07 20:08 | disposition home or self-care (01) ==
LOC: FSED 18:55
DX: R11.2 Nausea with vomiting, unspecified (principal); J02.9 Acute pharyngitis, unspecified; I10 Essential (primary) hypertension; E11.9 Type 2 diabetes mellitus without complications
CPT/HCPCS: 80053; 81003; 85025; 99283; J2550

== ENCOUNTER → 2019-03-28 | Day surgery (SDC) | payer MEDICARE ==
[2019-03-26 17:13] LABS: BASOPHILS # (AUTO) 0.1 (0.0-0.1); BASOPHILS % 0.9 % (0.0-1.0); EOSINOPHILS # (AUTO) 0.2 (0.0-0.4); EOSINOPHILS % 3.1 % (0.0-6.0); HEMATOCRIT 41.5 % (34.2-44.1); HEMOGLOBIN 14.2 g/dL (12.0-16.0); LYMPHOCYTES # (AUTO) 2.5 (1.0-3.2); LYMPHOCYTES % 36.2 % (18.0-39.1); MEAN CORPUSCULAR HEMOGLOBIN 31.3 pg (28-32); MEAN CORPUSCULAR HGB CONC 34.2 g/dL (31-35); MEAN CORPUSCULAR VOLUME 91.6 fL (81-99); MONOCYTES # (AUTO) 0.5 (0.2-0.8); MONOCYTES % 6.7 % (4.4-11.3); NEUTROPHILS # (AUTO) 3.7 (2.1-6.9); PLATELET COUNT 192 x10e3/uL (140-360); RED BLOOD COUNT 4.53 x10e6/uL (3.6-5.1); RED CELL DISTRIBUTION WIDTH 12.1 % (11.7-14.4)
[~2019-03-28] MED LIST changes: +AMITRIPTYLINE H10 MG PO; -ASPIR 8181 MG; +ASPIR 8181 MG PO; +DICYCLOMINE HCL10 MG PO; +FENTANYL CITRATE/PF 100MCG/2 ML INJ ONE; +METOCLOPRAMIDE10 MG PO; +MIDAZOLAM HCL 2 MG/2 ML VIAL ONE; +OMEGA-31000 MG PO; +OMEPRAZOLE40 MG PO; +PRAVASTATIN SOD40 MG PO; +PROPOFOL IV EMULSION 10 MG/ML 20 ML VIAL ONE; +TRELEGY ELLIPT1 EACH INH; +TRULICITY1.5 MG/0.5 SQ
--- OUTSIDE RECORDS SUMMARY | 2019-03-28 07:01 | XMS REPORT | Summary of Care ---
Author Author [facility] Address [address] [place] [address] Phone Unavailable Care Team Providers Care Novelty Worker Name Role Phone DAVID Peres, JOSE Unavailable Unavailable LARISSA ALCAZAR, MARGUERITE Bennett Unavailable Unavailable MANDY ALCAZAR [place], NAZARIO Unavailable Unavailable SEVERO ALCAZAR, NANCI Unavailable Unavailable CAROLINA ALCAZAR, ADELA Unavailable Unavailable Unavailable Unavailable Functional Status Name [...] Status: Active Migraine (346.90, G43.909) Status: Active Anxiety disorder (300.00, F41.9) Status: Active Depression, major (296.20, F32.9) Status: Active PTSD (post-traumatic stress disorder) (309.81, F43.10) Status: Active 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 * Refills: 0 Active Topiramate 100 MG Oral Tablet TAKE 1 TABLET DAILY. * Refills: 0 Active metFORMIN HCl ER (MOD) 1000 MG Oral Tablet [...] TIMES A DAY * Refills: 0 Active tiZANidine HCl - 4 MG Oral Capsule 1 capsule by mouth as needed * Refills: 0 Active Topiramate 25 MG Oral Capsule Sprinkle Take 2 tablets by mouth at night * Refills: 0 Active Symbicort 160-4.5 MCG/ACT Inhalation Aerosol INHALE 2 PUFFS TWICE DAILY. RINSE MOUTH AFTER USE. * Refills: 0 Active CPAP Continuous Positive Airway Pressure USED NIGHTLY DIRECTED * Refills: 0 Active clonazePAM 0.5 MG Oral Tablet TAKE 1 TABLET DAILY NEEDED FOR ANXIETY. * Quantity: 30 Refills: 0 JOSE HERNANDEZ M.D. * Start : 19-Sep-2017 Active Venlafaxine HCl ER 150 MG Oral Capsule Extended Release 24 Hour TAKE ONE CAPSULE BY MOUTH DAILY*need psych follow up. * Quantity: 90 Refills: 0 JOSE HERNANDEZ M.D. * Start : 01-Feb-2018 Active Allergies and Adverse Reactions Name Dates Details Ibuprofen TABS (Allergy) Status: Active Penicillins (Allergy) Status: Active Past Medical History Name Dates Details History of breast cancer (V10.3, Z85.3) Status: Resolved Past myocardial infarction (412, I25.2) Status: Resolved Procedures Procedure Dates Details [UTP] EMG Date: 20-Feb-2019 History of Hysterectomy Completed History of Knee [...] Planned Goals not documented Planned Encounters Appointment; NANCI ELKINS M.D. On: 07-Mar-2019 13:00 Appointment; NANCI ELKINS M.D. On: 07-Mar-2019 13:00 Instructions Name Dates Details Instructions not documented Encounters Appointment; RAÚL DOVER M.D. Encounter Diagnosis: Problem not documented On: 26-Jun-2017 10:30 Appointment; JOSE HERNANDEZ M.D. Encounter Diagnosis: Problem not documented On: 19-Sep-2017 8:30 Appointment; JOSE HERNANDEZ M.D. Encounter Diagnosis: Problem not documented On: 19-Dec-2017 11:00 Appointment; NAZARIO GALVAN M.D. Encounter Diagnosis: Problem not documented On: 11-Oct-2018 9:00 Appointment; NAZARIO GALVAN M.D. Encounter Diagnosis: Problem not documented On: 20-Nov-2018 10:30
--- OUTSIDE RECORDS SUMMARY | 2019-03-28 07:01 | XMS REPORT | Summary of Care ---
Author Author [facility] - Health Organization [facility] - Health Address Unknown Phone Unavailable Care Team Providers Care Pediatric Physician Name Role Phone Lawrence Perez PCP Encounter Details Care Team Description Date Type Department Doctor Unassigned, [place] [address] [place] [address] 01/22/2019 Orders Only [facility] [address] [place] [address] Allergies Comments Active Allergy Reactions Severity Noted Date hives Hydromorphone Hcl Unknown - See 03/07/2017 comments Shuts heart down Ibuprofen Unknown - See 03/07/2017 comments Shuts her heart down Penicillin Unknown - See 03/07/2017 comments documented as of this encounter (statuses as of 02/20/2019) Medications End Date Status Medication Sig Dispensed Refills Start Date Active albuterol 2.5 mg /3 mL 0 (0.083 %) nebulizer 7 solution Active amLODIPine 5 mg tablet 0 8 Active atorvastatin 40 mg tablet 0 7 Active SYMBICORT 160-4.5 0 mcg/actuation inhaler 8 Active busPIRone 15 mg tablet 0 8 Active gabapentin 300 mg capsule Take 300 mg 0 by mouth at 7 bedtime. Active NOVOLOG FLEXPEN 100 0 unit/mL injection 7 Active LEVEMIR FLEXTOUCH 100 0 unit/mL (3 mL) injection 7 Active COMBIVENT RESPIMAT 20-100 0 mcg/actuation inhaler 7 Active nystatin 100,000 0 unit/gram cream 8 Active omeprazole 20 mg capsule 0 8 Active SERTraline 100 mg tablet 0 8 Active topiramate 100 mg tablet 0 8 Active nystatin 100,000 Apply to 2 Tube 12 unit/gram cream area(s) 2 8 (two) times daily. Active mupirocin 2 % cream Apply to 30 g 1 area(s) 2 8 (two) times daily. Active metFORMIN 1,000 mg tablet 1 tablet 2 0 (two) times 8 daily with meals. Active topiramate 50 mg tablet Take 50 mg by 0 mouth. Active escitalopram oxalate 10 0 mg tablet 8 Active metoclopramide HCl Take by 0 (REGLAN ORAL) mouth. Active LINZESS 72 mcg Cap 0 8 documented as of this encounter (statuses as of 02/20/2019) Active Problems Problem Noted Date Type 2 diabetes mellitus with hyperglycemia, with long-term current use of 03/07/2017 insulin Macromastia 03/07/2017 Class 3 obesity due to excess calories with serious comorbidity in adult 03/07/2017 Intertrigo 03/07/2017 Class 3 obesity due to excess calories with serious comorbidity and body 03/07/2017 mass index (BMI) of 45.0 to 49.9 in adult documented as of this encounter (statuses as of 02/20/2019) Social History Date Tobacco Use Types Packs/Day Years Used Quit: 03/07/2003 Former Smoker Cigarettes 3 10 Smokeless Tobacco: Never Used Drinks/Week oz/Week Comments Alcohol Use No Sex Assigned at Date Recorded Not on file Industry Job Start Date Occupation Not on file Not on file Not on file Travel End Travel History Travel Start No recent travel history available. documented as of this encounter Last Filed Vital Signs Not on filedocumented in this encounter Plan of Treatment Health Maintenance Due Date Last Done Comments PNEUMOCOCCAL 0-64 YEARS 1978 COMBINED SERIES (1 of 1 - PPSV23) EYE EXAM 1982 LDL-C 1982 URINE MICROALBUMIN 1982 FOOT EXAM 1990 DTaP,Tdap,and Td Vaccines 09/28/1991 (1 - Tdap) PAP SMEAR 1993 Breast Cancer Screening 2012 (MAMMOGRAM) HgA1C 09/04/2017 03/07/2017 CREATININE (SERUM) 03/07/2018 03/07/2017 INFLUENZA VACCINE (#1) 2018 documented as of this encounter Procedures Comments Procedure Name Priority Date/Time Associated Diagnosis AUTHORIZATION FOR RELEASE Routine 01/22/2019 OF PHI 12:01 AM NATIONAL BUSINESS DIRECTOR documented in this encounter Results Not on filedocumented in this encounter Insurance Type Payer Benefit Subscriber ID Effective Phone Address Plan / Dates Group Medicare Adv PPO [employer] - MANAGED MEDICARE CHOICE [id number] 2017-P CARE resent documented as of this encounter
--- OUTSIDE RECORDS SUMMARY | 2019-03-28 07:01 | XMS REPORT | Summary of Care ---
Author Author Teresita Trevizo M.A. Unknown Address Unknown Phone Unavailable Care Team Providers Care Nurse Practitioner Hospitalist Name Role Phone JOSE HERNANDEZ M.D. Unavailable Unavailable Teresita Trevizo M.A. 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 * Quantity: 30 Refills: 0 SHAQ HERNANDEZ M.D.OBRANDY * Start : 19-Sep-2017 Active Venlafaxine HCl ER 150 MG Oral Capsule Extended Release 24 Hour TAKE ONE CAPSULE BY MOUTH DAILY*need psych follow up. * Quantity: 90 Refills: 0 SHAQ HERNANDEZ M.D.OBRANDY * Start : 01-Feb-2018 Active Allergies and [...] of Care Name Dates Details Planned Observations [UTP] EMG On: 14-Mar-2019 Intent Planned Goals not documented Planned Encounters Appointment; NANCI ELKINS M.D. On: 14-Mar-2019 15:00 Instructions Name Dates Details Instructions not documented [...]
--- OUTSIDE RECORDS SUMMARY | 2019-03-28 07:01 | XMS REPORT | Summary of Care ---
Author Author Teresita Trevizo M.A. Unknown Address Unknown Phone Unavailable Care Team Providers Care Billing Machine Operator Name Role Phone JOSE HERNANDEZ M.D. Unavailable Unavailable Teresita Trevizo M.A. 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 On: 20-Mar-2019 15:00 Instructions Name Dates Details Instructions not [...]
--- OUTSIDE RECORDS SUMMARY | 2019-03-28 07:01 | XMS REPORT | Summary of Care ---
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
--- OUTSIDE RECORDS SUMMARY | 2019-03-28 07:01 | XMS REPORT | Summary of Care ---
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
[2019-03-28 10:55] VITALS: BP 105/71
--- NOTE | 2019-03-28 17:36 | Operative Report ---
DATE OF PROCEDURE: 03/28/2019 SURGEON: González Godoy MD PROCEDURE PERFORMED: Esophagogastroduodenoscopy. PREOPERATIVE DIAGNOSES: Abdominal pain, acid reflux, history of gastroparesis. POSTOPERATIVE DIAGNOSES: Hiatal hernia, gastritis, and gastroparesis. PREOPERATIVE MEDICATIONS: Consisted of MAC anesthesia. PROCEDURE IN DETAIL: Using Olympus Design2Launch video gastroscope, it was inserted into the patient's oropharynx, advanced to the hypopharynx down into the esophagus. The mucosa present in the esophagus was normal. A small hiatal hernia sliding type was present from 38-39 cm. The stomach was entered and insufflated with air. There was a gastritis down in the body and antrum. Biopsies were obtained looking for H. Pylori infection. The motility was decreased. The pylorus was visualized and entered that was patent. The duodenum and postbulbar duodenum were found to be within normal limits. The endoscope was then withdrawn back up into the stomach, retroflexed viewing the EG junction, cardia, fundus and below, it was normal. The endoscope was placed back in the body of stomach and then slowly withdrawn back up into the esophagus, hypopharynx, oropharynx and out of the patient's mouth and the procedure was ended. González Godoy MD SAF/MODL /[id number]
== END | disposition home or self-care (01) ==
LOC: OR 06:54
PROVIDERS: ATTEND Internal Medicine Gastroenterology
DX: K31.84 Gastroparesis (principal); K29.70 Gastritis, unspecified, without bleeding; K21.9 Gastro-esophageal reflux disease without esophagitis; K44.9 Diaphragmatic hernia without obstruction or gangrene; K31.89 Other diseases of stomach and duodenum; G47.33 Obstructive sleep apnea (adult) (pediatric); I25.10 Atherosclerotic heart disease of native coronary artery without angina pectoris; I25.2 Old myocardial infarction; I10 Essential (primary) hypertension; J44.9 Chronic obstructive pulmonary disease, unspecified; E11.43 Type 2 diabetes mellitus with diabetic autonomic (poly)neuropathy; Z88.0 Allergy status to penicillin; Z88.8 Allergy status to other drugs, medicaments and biological substances; Z91.048 Other nonmedicinal substance allergy status; Z01.812 Encounter for preprocedural laboratory examination; Z79.82 Long term (current) use of aspirin
CPT/HCPCS: 36415 ×2; 43239; 82948; 85025; 88305; 88312; J2704; J2250; J3010

== ENCOUNTER → 2019-09-12 | Day surgery (SDC) | payer OTHER ==
[2019-09-06 11:24] LABS: BASOPHILS # (AUTO) 0.1 (0.0-0.1); BASOPHILS % 0.9 % (0.0-1.0); EOSINOPHILS # (AUTO) 0.3 (0.0-0.4); EOSINOPHILS % 5.5 % (0.0-6.0); HEMATOCRIT 39.4 % (34.2-44.1); HEMOGLOBIN 13.5 g/dL (12.0-16.0); LYMPHOCYTES # (AUTO) 2.3 (1.0-3.2); LYMPHOCYTES % 40.9 % (18.0-39.1); MEAN CORPUSCULAR HEMOGLOBIN 30.8 pg (28-32); MEAN CORPUSCULAR HGB CONC 34.3 g/dL (31-35); MONOCYTES # (AUTO) 0.4 (0.2-0.8); MONOCYTES % 7.6 % (4.4-11.3); NEUTROPHILS # (AUTO) 2.5 (2.1-6.9); NEUTROPHILS % 44.9 % (38.7-80.0); PLATELET COUNT 191 x10e3/uL (140-360); RED BLOOD COUNT 4.38 x10e6/uL (3.6-5.1); RED CELL DISTRIBUTION WIDTH 12.1 % (11.7-14.4)
[~2019-09-12] MED LIST changes: +LABETALOL HCL 5 MG/ML 20ML VIAL ONE; +LIDOCAINE HCL 2% LOCAL INJ 5 ML SDV VIAL INJ ONE; +MORPHINE S10 MG/1 M1 PO; +NORCO 5-325 TA1 EACH PO
[2019-09-12 14:45] VITALS: BP 110/71
--- NOTE | 2019-09-12 17:14 | Operative Report ---
DATE OF PROCEDURE: SURGEON: González Godoy MD PROCEDURES PERFORMED: Esophagogastroduodenoscopy and colonoscopy. PREOPERATIVE DIAGNOSES: Nausea, abdominal pain, diarrhea, Hemoccult-positive stools. POSTOPERATIVE DIAGNOSES: Hiatal hernia, reflux esophagitis, gastritis, gastroparesis, polyp in the cecum, polyp in the descending colon, polyp in the sigmoid colon, and internal hemorrhoids. PREOPERATIVE MEDICATIONS: Consisted of IV sedation administered under MAC anesthesia. DESCRIPTION OF PROCEDURE: EGD: Using Olympus JARED video gastroscope, it was inserted the patient's oropharynx and advanced to hypopharynx down to the esophagus. The mucosa present in esophageal body was normal, but at the lower esophagus, there was evidence of reflux esophagitis above a small sliding type hiatal hernia from 38 to 39 cm. A biopsy was obtained. The stomach was entered and insufflated with air. The mucosa present in the cardia, fundus, body, and antrum was viewed. There was evidence of a gastritis scattered throughout the body and antrum. Biopsies were obtained for H. Pylori. The motility was noted to be decreased if at any at all seen. The pylorus was normal. The pylorus was entered. The duodenal bulb and postbulbar duodenum were found to be within normal limits. The endoscope was then withdrawn back up into the stomach back up into the esophagus, hypopharynx, oropharynx, and out of the patient's mouth and the procedure was ended. Colonoscopy: After normal digital rectal examination, Olympus JARED video colonoscope was inserted in the patient's rectum and advanced without difficulty to the cecum. In the cecum was a 4 mm size benign polyp, which was removed with the hot biopsy forceps; in the descending colon, there was a 1 cm sized polyp, which was removed with the snare cautery; and down in the sigmoid colon was a 5 mm benign polyp, which was removed with hot biopsy forceps. No other disease process present. As we withdrew the colonoscope back to the rectum. Internal hemorrhoids were indeed noted. The colonoscope was withdrawn from the patient's rectum and the procedure was ended. González Gdooy MD SAF/MODL /[id number]
== END | disposition home or self-care (01) ==
LOC: OR 10:15
PROVIDERS: ATTEND Internal Medicine Gastroenterology
DX: K29.70 Gastritis, unspecified, without bleeding (principal); D12.4 Benign neoplasm of descending colon; K21.0 Gastro-esophageal reflux disease with esophagitis; K31.84 Gastroparesis; K44.9 Diaphragmatic hernia without obstruction or gangrene; K64.8 Other hemorrhoids; G47.33 Obstructive sleep apnea (adult) (pediatric); I25.2 Old myocardial infarction; E66.01 Morbid (severe) obesity due to excess calories; I10 Essential (primary) hypertension; E78.5 Hyperlipidemia, unspecified; J44.9 Chronic obstructive pulmonary disease, unspecified; G61.0 Guillain-Barre syndrome; R19.5 Other fecal abnormalities; E11.43 Type 2 diabetes mellitus with diabetic autonomic (poly)neuropathy; Z88.0 Allergy status to penicillin; Z88.8 Allergy status to other drugs, medicaments and biological substances; Z91.018 Allergy to other foods; Z01.810 Encounter for preprocedural cardiovascular examination; Z01.812 Encounter for preprocedural laboratory examination; Z11.59 Encounter for screening for other viral diseases; Z79.84 Long term (current) use of oral hypoglycemic drugs; Z79.82 Long term (current) use of aspirin; Z79.4 Long term (current) use of insulin; Z68.42 Body mass index [BMI] 45.0-49.9, adult; Z85.3 Personal history of malignant neoplasm of breast
CPT/HCPCS: 36415 ×2; 43239; 45384; 45385; 82948; 85025; 93005; J2001; J2250; J2704; J3010; J3490; U0002

== ENCOUNTER 2019-11-27 13:45 | Observation (INO) | payer MEDICARE, OTHER ==
[~2019-11-27] VITALS: Ht 167.6 cm; Wt 132.4 kg
[~2019-11-27 13:45] MED LIST changes: -FENTANYL CITRATE/PF 100MCG/2 ML INJ ONE; -LABETALOL HCL 5 MG/ML 20ML VIAL ONE; -LIDOCAINE HCL 2% LOCAL INJ 5 ML SDV VIAL INJ ONE; -MIDAZOLAM HCL 2 MG/2 ML VIAL ONE; -PROPOFOL IV EMULSION 10 MG/ML 20 ML VIAL ONE
[2019-11-27] MEDS ORDERED: MORPHINE SULFATE 2 MG/ML SYR 1ML IV STA (13:52)
[2019-11-27] MEDS ORDERED: ONDANSETRON HCL INJ 2MG/ML 2ML 2 MG/ML VIAL IV STA (13:52)
[2019-11-27] MEDS ORDERED: SODIUM CHLORIDE 0.9% 1000ML 1,000 ML IV STA (13:52)
[2019-11-27] MEDS ORDERED: ASPIRIN 325 MG TAB PO ONE (14:00)
[2019-11-27] MEDS ORDERED: ASPIRIN 81 MG CHEW TAB PO ONE (14:00)
[2019-11-27 14:12] LABS: BASOPHILS # (AUTO) 0.1 (0.0-0.1); BASOPHILS % 0.8 % (0.0-1.0); EOSINOPHILS # (AUTO) 0.1 (0.0-0.4); EOSINOPHILS % 1.9 % (0.0-6.0); HEMATOCRIT 40.2 % (34.2-44.1); HEMOGLOBIN 13.8 g/dL (12.0-16.0); LYMPHOCYTES # (AUTO) 2.2 (1.0-3.2); MEAN CORPUSCULAR HEMOGLOBIN 30.8 pg (28-32); MEAN CORPUSCULAR HGB CONC 34.3 g/dL (31-35); MEAN CORPUSCULAR VOLUME 89.7 fL (81-99); MONOCYTES # (AUTO) 0.5 (0.2-0.8); MONOCYTES % 7.4 % (4.4-11.3); NEUTROPHILS # (AUTO) 3.5 (2.1-6.9); NEUTROPHILS % 55.7 % (38.7-80.0); PLATELET COUNT 167 x10e3/uL (140-360); RED BLOOD COUNT 4.48 x10e6/uL (3.6-5.1); RED CELL DISTRIBUTION WIDTH 12.2 % (11.7-14.4)
[2019-11-27 14:21] LABS: CLARITY,URINE CLEAR (CLEAR); COLOR,URINE YELLOW (YELLOW); LEUKOCYTE ESTERASE ,URINE NEGATIVE (NEGATIVE); NITRITE,URINE NEGATIVE (NEGATIVE); PROTEIN,URINE DIPSTICK NEGATIVE (NEGATIVE)
[2019-11-27 14:22] LABS: BILIRUBIN,URINE NEGATIVE (NEGATIVE); KETONES,URINE NEGATIVE (NEGATIVE); URINE UROBILINOGEN 0.2 mg/dL (0.2 - 1)
[2019-11-27 14:23] LABS: INR 0.93; PROTHROMBIN TIME 12.9 seconds (11.9-14.5)
[2019-11-27 14:37] LABS: BACTERIA,URINE MODERATE /HPF; EPITHELIAL CELLS,URINE MANY /LPF
[2019-11-27] MEDS ORDERED: MORPHINE SULFATE 2 MG/ML SYR 1ML IV PRN (14:45)
[2019-11-27] MEDS ORDERED: NITROGLYCERIN 0.4 MG SUBL SL PRN (14:45)
[2019-11-27] MEDS ORDERED: ONDANSETRON HCL INJ 2MG/ML 2ML 2 MG/ML VIAL IV PRN ×2 (14:45→15:15)
[2019-11-27 14:48] LABS: ALANINE AMINOTRANSFERASE 24 IU/L (0-55); ALBUMIN 3.8 g/dL (3.5-5.0); ALKALINE PHOSPHATASE 85 IU/L (40-150); ANION GAP 12.6 mmol/L (8-16); BLOOD UREA NITROGEN 14 mg/dL (7-26); BUN/CREATININE RATIO 14 (6-25); CALCIUM 9.1 mg/dL (8.4-10.2); CARBON DIOXIDE 22 mmol/L (22-29); CHLORIDE 106 mmol/L (98-107); CREATINE KINASE 87 IU/L (29-168); CREATININE, SERUM 0.99 mg/dL (0.57-1.11); EST GLOMERULAR FILTRATION RATE 60 ML/MIN (60-); GLUCOSE 224 mg/dL (74-118); LIPASE 45 U/L (8-78); POTASSIUM 3.6 mmol/L (3.5-5.1); SODIUM 137 mmol/L (136-145)
[2019-11-27 15:08] LABS: THYROID STIMULATING HORMONE 0.968 uIU/mL (0.350-4.940)
[2019-11-27] MEDS ORDERED: ACETAMINOPHEN 325 MG TAB PO PRN (15:15)
[2019-11-27] MEDS ORDERED: HYDRALAZINE HCL 20 MG/ML VIAL IV PRN (15:15)
[2019-11-27] MEDS ORDERED: DOCUSATE SODIUM 100 MG CAP PO PRN (15:15)
[2019-11-27] MEDS ORDERED: BENZONATATE 100 MG CAP PO PRN (15:15)
[2019-11-27] MEDS ORDERED: MELATONIN 5 MG TABLET PO PRN (15:15)
[2019-11-27] MEDS ORDERED: POLYETHYLENE GLYCOL 3350 17 GM PACK PO PRN (15:15)
[2019-11-27] MEDS ORDERED: GUAIFENESIN/CODEINE 10 ML CUP PO PRN (15:15)
[2019-11-27] MEDS ORDERED: IOPAMIDOL 370 MG/ML 200 ML INFUS..BTL INJ ONE (16:24)
[2019-11-27] MEDS ORDERED: SODIUM CHLORIDE 0.9% 50ML 50 ML ONE (16:24)
[2019-11-27 16:34] VITALS: BP 102/67
[2019-11-27 16:57] VITALS: BP 102/67
[2019-11-27] MEDS ORDERED: ENOXAPARIN SOD INJ 40 MG/0.4 ML SYR SC SCH (17:00)
[2019-11-27 17:03] VITALS: BP 102/67
[2019-11-27] MEDS: MORPHINE SULFATE 2 MG/ML SYR 1ML IV PRN (17:20)
[2019-11-27] MEDS ORDERED: FUROSEMIDE INJ 10 MG/ML 4 ML VIAL IV ONE (19:15)
[2019-11-27 20:00] VITALS: BP 92/47
[2019-11-27 20:31] VITALS: BP 102/67
[2019-11-27] MEDS: HYDROCODONE/APAP 5MG-325MG TAB PO PRN (20:47)
[2019-11-27] MEDS: METOCLOPRAMIDE HCL 10 MG TAB PO SCH (20:52)
[2019-11-27] MEDS: FAMOTIDINE 20 MG/2 ML VIAL IV SCH (20:52)
[2019-11-27] MEDS ORDERED: INSULIN GLARGINE 100 UNITS/ML VIAL SQ SCH (21:00)
[2019-11-27] MEDS ORDERED: PRAVASTATIN 20 MG TAB PO SCH (21:00)
[2019-11-28] VITALS: BP 109/70
[2019-11-28] MEDS: MORPHINE SULFATE 2 MG/ML SYR 1ML IV PRN (02:00)
[2019-11-28 04:00] VITALS: BP 86/56
[2019-11-28] MEDS: HYDROCODONE/APAP 5MG-325MG TAB PO PRN (05:12)
[2019-11-28] MEDS: NITROGLYCERIN 0.4 MG SUBL SL PRN ×2 (05:35→05:40)
[2019-11-28 05:43] LABS: BASOPHILS % 0.5 % (0.0-1.0); EOSINOPHILS # (AUTO) 0.2 (0.0-0.4); EOSINOPHILS % 3.7 % (0.0-6.0); HEMATOCRIT 38.4 % (34.2-44.1); HEMOGLOBIN 13.1 g/dL (12.0-16.0); LYMPHOCYTES % 33.4 % (18.0-39.1); MEAN CORPUSCULAR HEMOGLOBIN 30.5 pg (28-32); MEAN CORPUSCULAR HGB CONC 34.1 g/dL (31-35); MEAN CORPUSCULAR VOLUME 89.3 fL (81-99); MONOCYTES # (AUTO) 0.5 (0.2-0.8); MONOCYTES % 8.5 % (4.4-11.3); NEUTROPHILS # (AUTO) 3.2 (2.1-6.9); NEUTROPHILS % 53.7 % (38.7-80.0); PLATELET COUNT 145 x10e3/uL (140-360); RED CELL DISTRIBUTION WIDTH 12.5 % (11.7-14.4)
[2019-11-28 06:06] LABS: ALANINE AMINOTRANSFERASE 23 IU/L (0-55); ALBUMIN 3.5 g/dL (3.5-5.0); ALKALINE PHOSPHATASE 78 IU/L (40-150); ANION GAP 12.5 mmol/L (8-16); BLOOD UREA NITROGEN 12 mg/dL (7-26); BUN/CREATININE RATIO 14 (6-25); CALCIUM 8.9 mg/dL (8.4-10.2); CARBON DIOXIDE 23 mmol/L (22-29); CHLORIDE 107 mmol/L (98-107); CHOL/HDL RATIO 4.1 (3.0-3.6); CHOLESTEROL 124 MD/DL (0-199); CREATININE, SERUM 0.88 mg/dL (0.57-1.11); EST GLOMERULAR FILTRATION RATE > 60 ML/MIN (60-); GLUCOSE 141 mg/dL (74-118); HDL CHOLESTEROL 30 MG/DL (40-60); LDL CHOLESTEROL 48 MG/DL (60-130); POTASSIUM 3.5 mmol/L (3.5-5.1); SODIUM 139 mmol/L (136-145); TRIGLYCERIDES 230 MG/DL (0-149)
[2019-11-28 07:00] VITALS: BP 110/78
[2019-11-28] MEDS ORDERED: ASPIRIN 81 MG CHEW TAB PO ONE ×2 (07:30→12:15)
[2019-11-28] MEDS ORDERED: PANTOPRAZOLE SOD 40 MG TABEC PO SCH ×2 (07:30→09:00)
[2019-11-28] MEDS: FAMOTIDINE 20 MG/2 ML VIAL IV SCH (08:51)
[2019-11-28] MEDS: METOCLOPRAMIDE HCL 10 MG TAB PO SCH ×2 (08:53→14:48)
[2019-11-28] MEDS ORDERED: TOPIRAMATE 100 MG TAB PO SCH (09:00)
[2019-11-28] MEDS ORDERED: NON-FORMULARY MEDICATION (Fluticasone/Umeclidin/Vilanter (Trelegy Ellipta 100-62.5-25) 1 P INH SCH (09:00)
[2019-11-28] MEDS ORDERED: OMEGA 3 POLYUNSAT FATTY ACIDS 1000 MG SOFTGEL PO SCH (09:00)
[2019-11-28] MEDS ORDERED: RANOLAZINE 500 MG TABSR PO SCH (09:00)
[2019-11-28] MEDS ORDERED: NON-FORMULARY MEDICATION (Dulaglutide (Trulicity) 1.5 MG) SQ SCH (09:00)
[2019-11-28] MEDS ORDERED: AMLODIPINE BESYLATE 5 MG TAB PO SCH (09:00)
[2019-11-28] MEDS ORDERED: METOPROLOL SUCCINATE 50 MG TAB XL PO SCH (09:00)
[2019-11-28 09:09] VITALS: BP 110/78
[2019-11-28] MEDS: INSULIN LISPRO 100 UNIT/1 ML 3ML VIAL SQ SCH ×2 (09:17→12:00)
[2019-11-28 11:30] VITALS: BP 111/85
[2019-11-28 13:27] LABS: CREATINE KINASE 63 IU/L (29-168)
== END 2019-11-28 16:32 | disposition home or self-care (01) ==
LOC: ER 14:00 → ERHOLD 14:32 → MED/SURG2 15:53
PROVIDERS: ADMIT Internal Medicine; ATTEND Internal Medicine
DX: R07.89 Other chest pain (principal); E11.9 Type 2 diabetes mellitus without complications; I10 Essential (primary) hypertension; E66.01 Morbid (severe) obesity due to excess calories; Z68.42 Body mass index [BMI] 45.0-49.9, adult; E78.00 Pure hypercholesterolemia, unspecified; G47.33 Obstructive sleep apnea (adult) (pediatric); Z85.3 Personal history of malignant neoplasm of breast; J44.9 Chronic obstructive pulmonary disease, unspecified; I25.2 Old myocardial infarction; F43.10 Post-traumatic stress disorder, unspecified; Z11.59 Encounter for screening for other viral diseases
CPT/HCPCS: 36415 ×2; 71045; 71260; 80053 ×2; 80061; 81001; 82550 ×2; 82553 ×2; 82948 ×2; 83036 ×2; 83605; 83690; 83735; 83880; 84443; 84484 ×2; 84702; 85025 ×2; 85379; 85610; 85730; 93005 ×2; 93970; 97116; 97161; 99284; G0378 ×2; J1650; J1815; J1940; J2270 ×2; J2405; J7030; J8597 ×2; Q9967; U0002

== ENCOUNTER → 2020-01-20 | Outpatient (CLI) | payer MEDICARE | LOC: MAMMO 09:52 | PROVIDERS: ATTEND Internal Medicine | DX: Z12.31 Encounter for screening mammogram for malignant neoplasm of breast (principal) | CPT/HCPCS: 77067 ==

== ENCOUNTER → 2020-04-02 | Outpatient (CLI) | payer MEDICARE | LOC: RAD 12:26 | PROVIDERS: ATTEND Internal Medicine | DX: B34.2 Coronavirus infection, unspecified (principal) | CPT/HCPCS: 71046 ==

== ENCOUNTER 2020-04-20 05:23 | Inpatient (IN) | payer MEDICARE, OTHER ==
[2020-04-16 08:37] LABS: BASOPHILS # (AUTO) 0.1 (0.0-0.1); BASOPHILS % 0.8 % (0.0-1.0); EOSINOPHILS # (AUTO) 0.2 (0.0-0.4); EOSINOPHILS % 2.9 % (0.0-6.0); HEMATOCRIT 41.1 % (34.2-44.1); HEMOGLOBIN 14.4 g/dL (12.0-16.0); LYMPHOCYTES # (AUTO) 2.5 (1.0-3.2); LYMPHOCYTES % 38.9 % (18.0-39.1); MEAN CORPUSCULAR HEMOGLOBIN 31.3 pg (28-32); MEAN CORPUSCULAR VOLUME 89.3 fL (81-99); MONOCYTES # (AUTO) 0.6 (0.2-0.8); MONOCYTES % 8.7 % (4.4-11.3); NEUTROPHILS # (AUTO) 3.1 (2.1-6.9); NEUTROPHILS % 48.5 % (38.7-80.0); PLATELET COUNT 193 x10e3/uL (140-360); RED CELL DISTRIBUTION WIDTH 11.9 % (11.7-14.4)
[2020-04-16 08:59] LABS: BLOOD UREA NITROGEN 13 mg/dL (7-26); BUN/CREATININE RATIO 13 (6-25); CALCIUM 9.2 mg/dL (8.4-10.2); CARBON DIOXIDE 23 mmol/L (22-29); CHLORIDE 106 mmol/L (98-107); CREATININE, SERUM 0.97 mg/dL (0.57-1.11); EST GLOMERULAR FILTRATION RATE > 60 ML/MIN (60-); GLUCOSE 191 mg/dL (74-118); SODIUM 139 mmol/L (136-145)
[~2020-04-20] VITALS: Ht 167.6 cm; Wt 132.4 kg
[~2020-04-20 05:23] MED LIST changes: +ESTRADIOL1 MG PO; +FAMOTIDINE20 MG PO; +MORPHINE SULFAT30 M2 PO; +NEURONTIN100 MG PO; +PROGESTERONE100 MG PO; +QUETIAPINE FUM100 MG PO; +TOPAMAX50 MG PO
[2020-04-20] MEDS ORDERED: LEVOFLOXACIN 500MG/D5W 100ML 100 ML IV ONE (05:57)
[2020-04-20] MEDS ORDERED: BUPIVACAINE 0.25% 30ML SDV ONE (07:17)
[2020-04-20] MEDS ORDERED: ACETAMINOPHEN 1000 MG/100 ML 100 ML IV ONE (07:54)
[2020-04-20] MEDS ORDERED: SCOPOLAMINE 1.5 MG PATCH ONE (07:54)
[2020-04-20] MEDS ORDERED: LIDOCAINE HCL (LTA) 4 ML SOLN ONE (07:54)
[2020-04-20] MEDS ORDERED: SUGAMMADEX SODIUM 200 MG/2 ML VIAL IV ONE (07:54)
[2020-04-20] MEDS ORDERED: FENTANYL CITRATE/PF 100MCG/2 ML INJ ONE (09:30)
[2020-04-20 10:13] VITALS: BP 128/82
[2020-04-20] MEDS ORDERED: SCOPOLAMINE 1.5 MG PATCH TOP ONE (10:30)
[2020-04-20] MEDS: MORPHINE SULFATE INJ 2 MG/ML SYR IV PRN ×5 (11:35→22:54)
[2020-04-20 11:36] VITALS: BP 119/76
[2020-04-20] MEDS ORDERED: DEXTROSE 50% SYRINGE 50 ML IV PRN (14:15)
[2020-04-20] MEDS ORDERED: LIDOCAINE 4% PATCH TP PRN (14:15)
[2020-04-20] MEDS ORDERED: POLYETHYLENE GLYCOL 3350 17 GM PACK PO PRN (14:15)
[2020-04-20] MEDS ORDERED: DOCUSATE SODIUM 100 MG CAP PO PRN (14:15)
[2020-04-20] MEDS ORDERED: ALBUTEROL/IPRATROPIUM 3 ML NEB NEB PRN (14:15)
[2020-04-20] MEDS ORDERED: SIMETHICONE 80 MG CHEW PO PRN (14:15)
[2020-04-20] MEDS ORDERED: POTASSIUM CHLORIDE 20 MEQ TAB CR PO PRN (14:15)
[2020-04-20] MEDS ORDERED: HYDRALAZINE HCL 20 MG/ML VIAL IV PRN (14:15)
[2020-04-20] MEDS ORDERED: BENZONATATE 100 MG CAP PO PRN (14:15)
[2020-04-20] MEDS ORDERED: ACETAMINOPHEN 325 MG TAB PO PRN (14:15)
[2020-04-20] MEDS: LACTATED RINGER'S 1,000 ML INJ SCH ×2 (14:32→22:54)
[2020-04-20 16:00] VITALS: BP 113/75
[2020-04-20 16:30] VITALS: BP 113/75
[2020-04-20 16:31] VITALS: BP 113/75
[2020-04-20 20:00] VITALS: BP 131/86
[2020-04-20] MEDS: ENOXAPARIN SOD INJ 40 MG/0.4 ML SYR SC SCH (20:18)
[2020-04-20] MEDS: ONDANSETRON HCL INJ 2MG/ML 2ML 2 MG/ML VIAL IV PRN (20:22)
[2020-04-20] MEDS ORDERED: MELATONIN 5 MG TABLET PO PRN (21:00)
[2020-04-21] VITALS: BP 122/88
[2020-04-21] MEDS ORDERED: HYDROCODONE/APAP 7.5MG-325MG 1 EA TAB PO PRN (00:01)
[2020-04-21] MEDS: ONDANSETRON HCL INJ 2MG/ML 2ML 2 MG/ML VIAL IV PRN (03:25)
[2020-04-21] MEDS: MORPHINE SULFATE INJ 2 MG/ML SYR IV PRN ×2 (03:25→05:20)
[2020-04-21 04:00] VITALS: BP 129/82
[2020-04-21] MEDS: LACTATED RINGER'S 1,000 ML INJ SCH ×2 (06:20→11:31)
[2020-04-21 07:01] LABS: BASOPHILS # (AUTO) 0.1 (0.0-0.1); BASOPHILS % 0.5 % (0.0-1.0); EOSINOPHILS % 0.3 % (0.0-6.0); HEMATOCRIT 40.4 % (34.2-44.1); HEMOGLOBIN 13.7 g/dL (12.0-16.0); LYMPHOCYTES # (AUTO) 1.6 (1.0-3.2); LYMPHOCYTES % 15.2 % (18.0-39.1); MEAN CORPUSCULAR HEMOGLOBIN 30.9 pg (28-32); MEAN CORPUSCULAR HGB CONC 33.9 g/dL (31-35); MONOCYTES # (AUTO) 0.9 (0.2-0.8); MONOCYTES % 8.5 % (4.4-11.3); NEUTROPHILS # (AUTO) 7.8 (2.1-6.9); NEUTROPHILS % 75.1 % (38.7-80.0); PLATELET COUNT 211 x10e3/uL (140-360); RED BLOOD COUNT 4.44 x10e6/uL (3.6-5.1); RED CELL DISTRIBUTION WIDTH 12.2 % (11.7-14.4)
[2020-04-21] MEDS ORDERED: PANTOPRAZOLE SOD 40 MG TABEC PO SCH (07:30)
[2020-04-21 08:03] LABS: CHLORIDE 109 mmol/L (98-107); POTASSIUM 3.9 mmol/L (3.5-5.1); SODIUM 135 mmol/L (136-145)
[2020-04-21 08:04] LABS: ANION GAP 11.9 mmol/L (8-16); BLOOD UREA NITROGEN 11 mg/dL (7-26); BUN/CREATININE RATIO 14 (6-25); CALCIUM 8.3 mg/dL (8.4-10.2); CARBON DIOXIDE 18 mmol/L (22-29); CREATININE, SERUM 0.76 mg/dL (0.57-1.11); EST GLOMERULAR FILTRATION RATE > 60 ML/MIN (60-); GLUCOSE 165 mg/dL (74-118); MAGNESIUM 1.9 MG/DL (1.3-2.1); PHOSPHORUS 1.9 MG/DL (2.3-4.7); THYROID STIMULATING HORMONE 0.934 uIU/mL (0.350-4.940)
[2020-04-21] MEDS: ENOXAPARIN SOD INJ 40 MG/0.4 ML SYR SC SCH (08:17)
[2020-04-21 08:36] VITALS: BP 125/78
[2020-04-21 11:58] VITALS: BP 123/77
== END 2020-04-21 15:33 | disposition home or self-care (01) | DRG 621 ==
LOC: OR 05:23 → PACU V 09:33 → MED/SURG 10:00
PROVIDERS: ADMIT Surgery; ATTEND Surgery
PROC: 0DB60Z3 Excision of Stomach, Open Approach, Vertical (ICD-10-PCS; principal; 2020-04-20 07:30)
DX: E66.01 Morbid (severe) obesity due to excess calories (principal); Z68.42 Body mass index [BMI] 45.0-49.9, adult; Z20.822 Contact with and (suspected) exposure to COVID-19; I10 Essential (primary) hypertension; J44.9 Chronic obstructive pulmonary disease, unspecified; I25.2 Old myocardial infarction; E11.9 Type 2 diabetes mellitus without complications; G47.33 Obstructive sleep apnea (adult) (pediatric)
CPT/HCPCS: 36415; 71046; 80048; 82948; 83735; 84100; 84443; 85025; 86850; 86900; 93005; J1650; J1956; J2270; J2405; J3010; J7121

== ENCOUNTER → 2020-05-15 | Outpatient (CLI) | payer MEDICARE | LOC: RAD 13:35 | PROVIDERS: ATTEND Internal Medicine | DX: M54.6 Pain in thoracic spine (principal); M54.5 Low back pain | CPT/HCPCS: 72070; 72110 ==

== ENCOUNTER → 2020-09-07 | Outpatient (CLI) | payer MEDICARE | LOC: MAMMO 10:53 | PROVIDERS: ATTEND Internal Medicine | DX: Z12.31 Encounter for screening mammogram for malignant neoplasm of breast (principal) | CPT/HCPCS: 77067 ==

== ENCOUNTER → 2020-12-30 | Outpatient (CLI) | payer MEDICARE | LOC: MAMMO 08:46 | PROVIDERS: ATTEND Obstetrics & Gynecology | DX: N64.4 Mastodynia (principal) | CPT/HCPCS: 77066 ==

== ENCOUNTER → 2021-01-15 | Outpatient (CLI) | payer MEDICARE, OTHER | LOC: RAD 11:21 | PROVIDERS: ATTEND Internal Medicine | DX: M47.812 Spondylosis without myelopathy or radiculopathy, cervical region (principal); M47.816 Spondylosis without myelopathy or radiculopathy, lumbar region | CPT/HCPCS: 72050; 72110 ==

== ENCOUNTER → 2021-02-04 | Outpatient (CLI) | payer MEDICARE, OTHER | LOC: CT 12:28 | PROVIDERS: ATTEND Internal Medicine | DX: I63.411 Cerebral infarction due to embolism of right middle cerebral artery (principal); I69.354 Hemiplegia and hemiparesis following cerebral infarction affecting left non-dominant side | CPT/HCPCS: 70450 ==

== ENCOUNTER → 2021-02-11 | Outpatient (CLI) | payer MEDICARE, OTHER | LOC: MRI 08:06 | PROVIDERS: ATTEND Internal Medicine | DX: R53.1 Weakness (principal); R51.9 Headache, unspecified; Z79.01 Long term (current) use of anticoagulants | CPT/HCPCS: 70551 ==

== ENCOUNTER 2021-02-19 09:17 | Outpatient (RCR) | payer MEDICARE, OTHER | END 2021-03-08 | LOC: ST 09:17 | PROVIDERS: ATTEND Internal Medicine | DX: I63.411 Cerebral infarction due to embolism of right middle cerebral artery (principal) ==

== ENCOUNTER 2021-04-16 10:59 | Outpatient (RCR) | payer MEDICARE, OTHER | END 2021-05-06 | LOC: PT 10:59 | PROVIDERS: ATTEND Internal Medicine | DX: R53.1 Weakness (principal) ==

== ENCOUNTER → 2021-08-04 | Outpatient (CLI) | payer MEDICARE | LOC: RAD 07:21 | PROVIDERS: ATTEND Internal Medicine | DX: S62.232 Other displaced fracture of base of first metacarpal bone, left hand (principal); S62.92XG Unspecified fracture of left hand, subsequent encounter for fracture with delayed healing ==

== ENCOUNTER → 2021-09-01 | Outpatient (CLI) | payer MEDICARE | LOC: MAMMO 07:52 | PROVIDERS: ATTEND Obstetrics & Gynecology | DX: Z12.31 Encounter for screening mammogram for malignant neoplasm of breast (principal) | CPT/HCPCS: 77067 ==

== ENCOUNTER 2022-06-16 09:01 | Emergency (ER) | payer MEDICARE ==
[~2022-06-16] VITALS: Ht 167.6 cm; Wt 132.4 kg
[2022-06-16] MEDS ORDERED: ONDANSETRON HCL INJ 2MG/ML 2ML 2 MG/ML VIAL IV STA (09:12)
[2022-06-16] MEDS ORDERED: Morphine 2mg Syringe 2 MG/ML SYR IV ONE (09:15)
[2022-06-16] MEDS ORDERED: DICYCLOMINE HCL 20 MG/2 ML VIAL IM ONE (09:15)
[2022-06-16 09:53] LABS: BASOPHILS # (AUTO) 0.1 (0.0-0.1); BASOPHILS % 0.9 % (0.0-1.0); EOSINOPHILS # (AUTO) 0.1 (0.0-0.4); EOSINOPHILS % 2.4 % (0.0-6.0); HEMOGLOBIN 13.7 g/dL (12.0-16.0); LYMPHOCYTES # (AUTO) 2.6 (1.0-3.2); LYMPHOCYTES % 47.3 % (18.0-39.1); MEAN CORPUSCULAR HEMOGLOBIN 32.9 pg (28-32); MEAN CORPUSCULAR HGB CONC 34.3 g/dL (31-35); MEAN CORPUSCULAR VOLUME 96.2 fL (81-99); MONOCYTES # (AUTO) 0.5 (0.2-0.8); MONOCYTES % 9.7 % (4.4-11.3); NEUTROPHILS # (AUTO) 2.2 (2.1-6.9); NEUTROPHILS % 39.7 % (38.7-80.0); PLATELET COUNT 182 x10e3/uL (140-360); RED BLOOD COUNT 4.16 x10e6/uL (3.6-5.1); RED CELL DISTRIBUTION WIDTH 11.7 % (11.7-14.4)
[2022-06-16 10:01] LABS: CLARITY,URINE CLOUDY (CLEAR); COLOR,URINE YELLOW (YELLOW); KETONES,URINE NEGATIVE (NEGATIVE); LEUKOCYTE ESTERASE ,URINE NEGATIVE (NEGATIVE); NITRITE,URINE NEGATIVE (NEGATIVE); PROTEIN,URINE DIPSTICK NEGATIVE (NEGATIVE); URINE UROBILINOGEN 0.2 mg/dL (0.2 - 1)
[2022-06-16 10:13] LABS: ALBUMIN 4.1 g/dL (3.5-5.0); ANION GAP 13.7 mmol/L (8-16); CALCIUM 9.6 mg/dL (8.4-10.2); CREATININE, SERUM 0.78 mg/dL (0.57-1.11); POTASSIUM 3.7 mmol/L (3.5-5.1)
[2022-06-16 10:25] LABS: BACTERIA,URINE FEW /HPF; RBC,URINE 0-5 /HPF (0-5); WBC,URINE (MAN) 0-5 /HPF (0-5)
[2022-06-16 10:26] LABS: AMORPHOUS SEDIMENT,URINE FEW (FEW)
[2022-06-16 10:39] LABS: EPITHELIAL CELLS,URINE FEW /LPF
[2022-06-16] MEDS ORDERED: IOPAMIDOL 370 MG/ML 100 ML INFUS..BTL INJ ONE (10:59)
[2022-06-16] MEDS ORDERED: PROMETHAZINE 12.5MG/ NACL 0.9% 12.5 MG/50 ML BAG IV ONE (11:15)
[2022-06-16] MEDS ORDERED: ONDANSETRON ODT4 MG PO (12:05)
[2022-06-16 12:30] VITALS: BP 123/81; PULSE 64; RESP 16; O2SAT 100
== END 2022-06-16 12:00 | disposition home or self-care (01) ==
LOC: ER 09:08
DX: R11.2 Nausea with vomiting, unspecified (principal); R10.33 Periumbilical pain; I10 Essential (primary) hypertension; E11.9 Type 2 diabetes mellitus without complications; J44.9 Chronic obstructive pulmonary disease, unspecified; J45.909 Unspecified asthma, uncomplicated; G47.30 Sleep apnea, unspecified; I25.2 Old myocardial infarction; Z85.3 Personal history of malignant neoplasm of breast; Z98.84 Bariatric surgery status
CPT/HCPCS: 36415; 74177; 80053; 81001; 83690; 84484; 85025; 93005; 99284; J0500; J2270; J2405; J2550; Q9967

== ENCOUNTER → 2022-07-19 | Outpatient (CLI) | payer MEDICARE ==
[~2022-07-19] MED LIST changes: +CRESTOR10 MG PO; +ESTRACE42.5 GM TOP; +ESTRADIOL PATCH TD; +FOLIC ACID0.4 MG PO; +LINZESS145 MCG PO; +MIDODRINE HCL2.5 MG PO; +ONDANSETRON ODT4 MG PO; +OXYCODONE HCL20 M1 PO; +PROTONIX20 MG PO; +SUBOXONE 2 MG-1 EAC2 SL; +VITAMIN D250 MCG
== END ==
LOC: NM 07:31
PROVIDERS: ATTEND Internal Medicine Gastroenterology
DX: K31.84 Gastroparesis (principal)
CPT/HCPCS: 78264; A9541

== ENCOUNTER → 2022-07-25 | Day surgery (SDC) | payer MEDICARE ==
[~2022-07-25] MED LIST changes: +LIDOCAINE HCL 2% LOCAL INJ 5 ML SDV VIAL INJ ONE; +POVIDONE IODINE 0.05% 0.05 % ML PO ONE; +PROPOFOL IV EMULSION 10 MG/ML 20 ML VIAL ONE
[2022-07-25 07:25] VITALS: TEMP 98.2
[2022-07-25 07:40] VITALS: BP 120/86; PULSE 65; RESP 16; O2SAT 100
== END | disposition home or self-care (01) ==
LOC: ENDO 05:33
PROVIDERS: ATTEND Surgery
DX: R13.10 Dysphagia, unspecified (principal); K29.50 Unspecified chronic gastritis without bleeding; Z98.84 Bariatric surgery status; E11.9 Type 2 diabetes mellitus without complications; I25.10 Atherosclerotic heart disease of native coronary artery without angina pectoris; I10 Essential (primary) hypertension; J44.9 Chronic obstructive pulmonary disease, unspecified; I25.2 Old myocardial infarction; G61.0 Guillain-Barre syndrome; I69.354 Hemiplegia and hemiparesis following cerebral infarction affecting left non-dominant side; Z88.0 Allergy status to penicillin; Z88.8 Allergy status to other drugs, medicaments and biological substances; Z91.018 Allergy to other foods; Z79.82 Long term (current) use of aspirin; Z79.899 Other long term (current) drug therapy; Z95.0 Presence of cardiac pacemaker; Z98.61 Coronary angioplasty status
CPT/HCPCS: 43239; 88305; 88342; J2001; J2704; 43235

== ENCOUNTER → 2023-08-07 | Day surgery (SDC) | payer MEDICARE, OTHER ==
[~2023-08-07] MED LIST changes: +ACETAMINOPHEN-1 EAC4 PO; +DEXAMETHASONE SOD PHOS INJ 4 MG/ML SDV ONE; +EMGALITY S120 MG/1 M SQ; +LANTUS 3ML100 UNITS/ SQ; -LIDOCAINE HCL 2% LOCAL INJ 5 ML SDV VIAL INJ ONE; +LIDOCAINE TOP; +METOCLOPRAMIDE HCL 10 MG/2ML VIAL ONE; +ONDANSETRON HCL INJ 2MG/ML 2ML 2 MG/ML VIAL ONE; -POVIDONE IODINE 0.05% 0.05 % ML PO ONE; +ROCURONIUM BROMIDE 10 MG/ML 5ML VIAL IV ONE; +SEVOFLURANE INHAL SOLN 250 ML PEN BTL ONE; +SUCCINYLCHOLINE CHLORIDE 20 MG/ML 10ML VIAL ONE
[2023-08-07] MEDS: LACTATED RINGER'S 1,000 ML ONE (06:05)
[2023-08-07 08:15] VITALS: BP 137/84; PULSE 82; RESP 18; O2SAT 98
== END | disposition home or self-care (01) ==
LOC: ENDO 05:57
PROVIDERS: ATTEND Surgery
DX: K21.9 Gastro-esophageal reflux disease without esophagitis (principal); K29.50 Unspecified chronic gastritis without bleeding; K31.89 Other diseases of stomach and duodenum; J44.9 Chronic obstructive pulmonary disease, unspecified; E11.9 Type 2 diabetes mellitus without complications; F41.9 Anxiety disorder, unspecified; F32.A Depression, unspecified; Z88.0 Allergy status to penicillin; Z88.8 Allergy status to other drugs, medicaments and biological substances; Z91.018 Allergy to other foods; Z01.810 Encounter for preprocedural cardiovascular examination; Z79.82 Long term (current) use of aspirin; Z79.4 Long term (current) use of insulin; Z79.899 Other long term (current) drug therapy; Z86.73 Personal history of transient ischemic attack (TIA), and cerebral infarction without residual deficits; Z85.3 Personal history of malignant neoplasm of breast; Z92.21 Personal history of antineoplastic chemotherapy; Z92.3 Personal history of irradiation
CPT/HCPCS: 43239; 88305; 88313; 88342; 93005; J0330; J1100; J2405; J2765

== ENCOUNTER 2023-09-09 15:34 | Emergency (ER) | payer MEDICARE, OTHER ==
[~2023-09-09] VITALS: Ht 167.6 cm; Wt 122.9 kg
[~2023-09-09 15:34] MED LIST changes: -DEXAMETHASONE SOD PHOS INJ 4 MG/ML SDV ONE; -METOCLOPRAMIDE HCL 10 MG/2ML VIAL ONE; -ONDANSETRON HCL INJ 2MG/ML 2ML 2 MG/ML VIAL ONE; -PROPOFOL IV EMULSION 10 MG/ML 20 ML VIAL ONE; -ROCURONIUM BROMIDE 10 MG/ML 5ML VIAL IV ONE; -SEVOFLURANE INHAL SOLN 250 ML PEN BTL ONE; -SUCCINYLCHOLINE CHLORIDE 20 MG/ML 10ML VIAL ONE
[2023-09-09 15:38] VITALS: PULSE 98; RESP 18; TEMP 96.8
[2023-09-09] MEDS ORDERED: PREDNISONE20 MG PO (16:47)
[2023-09-09] MEDS ORDERED: ULTRAM 50MG50 MG PO (16:50)
[2023-09-09] MEDS: TRAMADOL HCL 50 MG TAB PO ONE (16:54)
[2023-09-09] MEDS: PREDNISONE 20 MG TAB PO ONE (16:55)
[2023-09-09 17:36] VITALS: BP 138/92; PULSE 71; RESP 18; TEMP 98.3; O2SAT 98
== END 2023-09-09 17:30 | disposition home or self-care (01) ==
LOC: FSED 16:12
DX: M54.16 Radiculopathy, lumbar region (principal); M62.830 Muscle spasm of back; I10 Essential (primary) hypertension; E11.9 Type 2 diabetes mellitus without complications; J44.9 Chronic obstructive pulmonary disease, unspecified; E78.5 Hyperlipidemia, unspecified; G47.30 Sleep apnea, unspecified; J45.909 Unspecified asthma, uncomplicated; E66.01 Morbid (severe) obesity due to excess calories; I25.2 Old myocardial infarction; Z86.73 Personal history of transient ischemic attack (TIA), and cerebral infarction without residual deficits; Z85.3 Personal history of malignant neoplasm of breast; Z86.79 Personal history of other diseases of the circulatory system
CPT/HCPCS: 99283; J7512

== ENCOUNTER 2023-10-24 08:33 | Emergency (ER) | payer MEDICARE, OTHER ==
[~2023-10-24] VITALS: Ht 167.6 cm; Wt 122.0 kg
[~2023-10-24 08:33] MED LIST changes: +PREDNISONE20 MG PO; +ULTRAM 50MG50 MG PO
[2023-10-24 09:41] VITALS: PULSE 85; RESP 16; TEMP 97.5; O2SAT 98
[2023-10-24] MEDS ORDERED: AMLODIPINE BESY10 MG PO (10:48)
[2023-10-24] MEDS ORDERED: CYCLOBENZAPRINE10 MG PO (10:48)
[2023-10-24] MEDS ORDERED: ASPIRIN325 MG PO (10:48)
[2023-10-24] MEDS ORDERED: SEROQUEL50 MG PO (10:48)
== END 2023-10-24 09:41 | disposition home or self-care (01) ==
LOC: FSED 08:42
DX: M25.532 Pain in left wrist (principal); M65.88 Other synovitis and tenosynovitis, other site; I10 Essential (primary) hypertension; E11.9 Type 2 diabetes mellitus without complications; J44.9 Chronic obstructive pulmonary disease, unspecified; J45.909 Unspecified asthma, uncomplicated; G47.30 Sleep apnea, unspecified; E66.01 Morbid (severe) obesity due to excess calories; I25.2 Old myocardial infarction; Z85.3 Personal history of malignant neoplasm of breast; Z86.73 Personal history of transient ischemic attack (TIA), and cerebral infarction without residual deficits
CPT/HCPCS: 99283

== ENCOUNTER → 2023-11-22 | Outpatient (REF) | payer MEDICARE, OTHER ==
[~2023-11-22] MED LIST changes: +AMLODIPINE BESY10 MG PO; +ASPIRIN325 MG PO; +CYCLOBENZAPRINE10 MG PO; +SEROQUEL50 MG PO
== END ==
LOC: RAD 09:47
PROVIDERS: ATTEND Internal Medicine
DX: S63.502A Unspecified sprain of left wrist, initial encounter (principal)

== ENCOUNTER → 2024-02-12 | Day surgery (SDC) | payer MEDICARE, OTHER ==
[2024-02-02 11:41] LABS: BASOPHILS % 0.8 % (0.0-1.0); EOSINOPHILS # (AUTO) 0.1 (0.0-0.4); EOSINOPHILS % 2.2 % (0.0-6.0); HEMATOCRIT 40.3 % (34.2-44.1); LYMPHOCYTES # (AUTO) 1.9 (1.0-3.2); LYMPHOCYTES % 37.1 % (18.0-39.1); MEAN CORPUSCULAR HEMOGLOBIN 31.5 pg (28-32); MEAN CORPUSCULAR HGB CONC 32.3 g/dL (31-35); MEAN CORPUSCULAR VOLUME 97.6 fL (81-99); MONOCYTES # (AUTO) 0.4 (0.2-0.8); MONOCYTES % 7.6 % (4.4-11.3); NEUTROPHILS # (AUTO) 2.6 (2.1-6.9); NEUTROPHILS % 52.1 % (38.7-80.0); PLATELET COUNT 196 x10e3/uL (140-360); RED BLOOD COUNT 4.13 x10e6/uL (3.6-5.1); WHITE BLOOD COUNT 5.01 x10e3/uL (4.8-10.8)
[2024-02-02 12:14] LABS: ANION GAP 12.7 mmol/L (8-16); CALCIUM 9.2 mg/dL (8.4-10.2); CREATININE, SERUM 0.95 mg/dL (0.57-1.11); POTASSIUM 3.7 mmol/L (3.5-5.1)
[~2024-02-12] MED LIST changes: +ACETAMINOPHEN 1000 MG/100 ML 100 ML IV ONE; +FAMOTIDINE 20 MG/2 ML VIAL IV ONE; +FENTANYL CITRATE/PF 100MCG/2 ML INJ ONE; +GLYCOPYRROLATE INJ 0.2 MG/ML VIAL ONE; +LIDOCAINE HCL 2% LOCAL INJ 5 ML SDV VIAL INJ ONE; +METOCLOPRAMIDE HCL 10 MG/2ML VIAL ONE; +MIDAZOLAM HCL 2 MG/2 ML VIAL ONE; +ONDANSETRON HCL INJ 2MG/ML 2ML 2 MG/ML VIAL ONE; +PROPOFOL IV EMULSION 10 MG/ML 20 ML VIAL ONE; +TRICOR145 MG PO; +[UNRECOGNIZED DRUG - OTHER] SQ
[2024-02-12] MEDS: LACTATED RINGER'S 1,000 ML ONE (05:33)
[2024-02-12 07:34] VITALS: TEMP 97.3
[2024-02-12 08:50] VITALS: BP 140/81; PULSE 79; RESP 14; O2SAT 100
== END | disposition home or self-care (01) ==
LOC: OR 05:03
PROVIDERS: ATTEND Specialist
DX: M65.4 Radial styloid tenosynovitis [de Quervain] (principal); G89.4 Chronic pain syndrome; I10 Essential (primary) hypertension; I25.10 Atherosclerotic heart disease of native coronary artery without angina pectoris; E11.9 Type 2 diabetes mellitus without complications; Z79.4 Long term (current) use of insulin; Z79.84 Long term (current) use of oral hypoglycemic drugs; J44.9 Chronic obstructive pulmonary disease, unspecified; Z87.891 Personal history of nicotine dependence; F43.10 Post-traumatic stress disorder, unspecified; F41.9 Anxiety disorder, unspecified; F32.A Depression, unspecified; M54.2 Cervicalgia; M54.9 Dorsalgia, unspecified; Z01.810 Encounter for preprocedural cardiovascular examination; Z01.812 Encounter for preprocedural laboratory examination; Z01.818 Encounter for other preprocedural examination; Z85.3 Personal history of malignant neoplasm of breast; Z92.21 Personal history of antineoplastic chemotherapy; Z92.3 Personal history of irradiation; Z79.899 Other long term (current) drug therapy; Z79.82 Long term (current) use of aspirin
CPT/HCPCS: 25000; 36415; 71046; 80048; 85025; 93005; J0131; J0690; J2003; J2250; J2405; J2704; J2765; J3010; J7121

== ENCOUNTER → 2024-04-29 | Day surgery (SDC) | payer MEDICARE, OTHER ==
[2024-04-24 10:20] LABS: BASOPHILS % 0.7 % (0.0-1.0); EOSINOPHILS # (AUTO) 0.1 (0.0-0.4); EOSINOPHILS % 2.7 % (0.0-6.0); HEMATOCRIT 40.1 % (34.2-44.1); HEMOGLOBIN 13.9 g/dL (12.0-16.0); LYMPHOCYTES # (AUTO) 1.6 (1.0-3.2); LYMPHOCYTES % 37.1 % (18.0-39.1); MEAN CORPUSCULAR HEMOGLOBIN 31.1 pg (28-32); MEAN CORPUSCULAR HGB CONC 34.7 g/dL (31-35); MEAN CORPUSCULAR VOLUME 89.7 fL (81-99); MONOCYTES # (AUTO) 0.3 (0.2-0.8); MONOCYTES % 7.7 % (4.4-11.3); NEUTROPHILS # (AUTO) 2.3 (2.1-6.9); NEUTROPHILS % 51.6 % (38.7-80.0); PLATELET COUNT 229 x10e3/uL (140-360); RED BLOOD COUNT 4.47 x10e6/uL (3.6-5.1); RED CELL DISTRIBUTION WIDTH 12.6 % (11.7-14.4); WHITE BLOOD COUNT 4.42 x10e3/uL (4.8-10.8)
[2024-04-24 10:47] LABS: CALCIUM 9.5 mg/dL (8.4-10.2); CREATININE, SERUM 1.05 mg/dL (0.57-1.11)
[~2024-04-29] MED LIST changes: -ACETAMINOPHEN 1000 MG/100 ML 100 ML IV ONE; +B COMPLEX1 EACH; +D3-5000125 MCG; +ENOXAPARIN SOD INJ 40 MG/0.4 ML SYR SC SCH; -FAMOTIDINE 20 MG/2 ML VIAL IV ONE; -GLYCOPYRROLATE INJ 0.2 MG/ML VIAL ONE; -METOCLOPRAMIDE HCL 10 MG/2ML VIAL ONE; -MIDAZOLAM HCL 2 MG/2 ML VIAL ONE; +Morphine 2mg Syringe 2 MG/ML SYR IV PRN; +ONDANSETRON HCL INJ 2MG/ML 2ML 2 MG/ML VIAL IV PRN; -ONDANSETRON HCL INJ 2MG/ML 2ML 2 MG/ML VIAL ONE; +ONDANSETRON ODT8 MG PO; +ROCURONIUM BROMIDE 0 ML IV ONE; +SCOPOLAMINE 1 MG PATCH TOP SCH; +SODIUM CHLORIDE 0.9% 1000ML 1,000 ML IV SCH; +VITAMIN C1000 MG PO
[2024-04-29] MEDS: LACTATED RINGER'S 1,000 ML ONE (06:05)
[2024-04-29] MEDS: LEVOFLOXACIN 500MG/D5W 100ML 100 ML IV ONE (06:06)
== END | disposition home or self-care (01) ==
LOC: OR 05:16
PROVIDERS: ATTEND Surgery
DX: E66.01 Morbid (severe) obesity due to excess calories (principal); Z01.812 Encounter for preprocedural laboratory examination; Z53.8 Procedure and treatment not carried out for other reasons
CPT/HCPCS: 36415; 80048; 82948; 85025; J1956; J2003

== ENCOUNTER 2024-05-13 05:17 | Inpatient (IN) | payer MEDICARE, OTHER ==
[~2024-05-13] VITALS: Ht 167.6 cm; Wt 115.7 kg
[~2024-05-13 05:17] MED LIST changes: -ENOXAPARIN SOD INJ 40 MG/0.4 ML SYR SC SCH; -FENTANYL CITRATE/PF 100MCG/2 ML INJ ONE; -LIDOCAINE HCL 2% LOCAL INJ 5 ML SDV VIAL INJ ONE; -Morphine 2mg Syringe 2 MG/ML SYR IV PRN; -ONDANSETRON HCL INJ 2MG/ML 2ML 2 MG/ML VIAL IV PRN; -PROPOFOL IV EMULSION 10 MG/ML 20 ML VIAL ONE; -ROCURONIUM BROMIDE 0 ML IV ONE; -SCOPOLAMINE 1 MG PATCH TOP SCH; -SODIUM CHLORIDE 0.9% 1000ML 1,000 ML IV SCH
[2024-05-13] MEDS: LACTATED RINGER'S 1,000 ML ONE (06:37)
[2024-05-13] MEDS: SCOPOLAMINE 1 MG PATCH ONE (06:37)
[2024-05-13] MEDS: LEVOFLOXACIN 500MG/D5W 100ML 100 ML IV ONE (06:37)
[2024-05-13] MEDS ORDERED: FENTANYL CITRATE/PF 100MCG/2 ML INJ ONE (06:44)
[2024-05-13] MEDS ORDERED: PROPOFOL IV EMULSION 10 MG/ML 20 ML VIAL ONE (06:44)
[2024-05-13] MEDS ORDERED: ACETAMINOPHEN 1000 MG/100 ML 100 ML IV ONE (06:44)
[2024-05-13] MEDS ORDERED: ROCURONIUM BROMIDE 1 ML IV ONE (06:45)
[2024-05-13] MEDS ORDERED: LIDOCAINE HCL 2% LOCAL INJ 5 ML SDV VIAL INJ ONE (06:46)
[2024-05-13] MEDS ORDERED: BUPIVACAINE/EPI 0.5% 30ML SDV-MPF INJ ONE (06:47)
[2024-05-13] MEDS ORDERED: FAMOTIDINE 20 MG/2 ML VIAL IV ONE (06:56)
[2024-05-13] MEDS ORDERED: MIDAZOLAM HCL 2 MG/2 ML VIAL ONE (06:56)
[2024-05-13] MEDS ORDERED: ONDANSETRON HCL INJ 2MG/ML 2ML 2 MG/ML VIAL ONE (07:23)
[2024-05-13] MEDS ORDERED: DEXAMETHASONE SOD PHOS INJ 4 MG/ML SDV ONE (07:23)
[2024-05-13] MEDS ORDERED: GLYCOPYRROLATE INJ 0.2 MG/ML VIAL ONE (07:23)
[2024-05-13] MEDS ORDERED: METOCLOPRAMIDE HCL 10 MG/2ML VIAL ONE (07:23)
[2024-05-13] MEDS ORDERED: EPHEDRINE SULFATE INJ 50 MG/ML VIAL ONE (07:23)
[2024-05-13] MEDS ORDERED: PHENYLEPHRINE HCL 1% 10 MG/ML VIAL ONE (08:06)
[2024-05-13] MEDS: SCOPOLAMINE 1 MG PATCH TOP SCH (10:00)
[2024-05-13] MEDS: FENTANYL CITRATE/PF 100MCG/2 ML INJ ONE (10:25)
[2024-05-13 11:00] VITALS: BP 125/75; PULSE 85; PULSE 88; RESP 17; TEMP 97.7; O2SAT 99
[2024-05-13] MEDS: SODIUM CHLORIDE 0.9% 1000ML 1,000 ML IV SCH (11:07)
[2024-05-13] MEDS: ONDANSETRON HCL INJ 2MG/ML 2ML 2 MG/ML VIAL IV PRN (11:07)
[2024-05-13] MEDS: Morphine 2mg Syringe 2 MG/ML SYR IV PRN (11:07)
[2024-05-13 13:28] VITALS: PULSE 85; RESP 18; O2SAT 99
[2024-05-13 16:11] VITALS: BP 155/83; PULSE 103; RESP 18; TEMP 97.2; O2SAT 98
[2024-05-13] MEDS: HYDROCODONE/APAP 7.5MG-325MG 1 EA TAB PO PRN (17:29)
[2024-05-13] MEDS ORDERED: DEXTROSE 50% SYRINGE 50 ML IV PRN ×4 (17:45)
[2024-05-13 18:22] VITALS: BP 155/83; PULSE 103; RESP 18; TEMP 97.2; O2SAT 98
[2024-05-13 18:50] VITALS: PULSE 104; RESP 18; O2SAT 99
[2024-05-13 20:00] VITALS: BP 126/73; PULSE 106; RESP 18; TEMP 97.5; O2SAT 97
[2024-05-13] MEDS: INSULIN LISPRO 100 UNIT/1 ML 3ML VIAL SQ SCH (21:00)
[2024-05-13] MEDS: ENOXAPARIN SOD INJ 40 MG/0.4 ML SYR SC SCH (21:21)
[2024-05-14] VITALS: BP 134/81; PULSE 101; RESP 16; TEMP 98.1; O2SAT 98
[2024-05-14 04:57] VITALS: BP 153/79; PULSE 65; RESP 16; TEMP 98.6; O2SAT 99
[2024-05-14 07:31] VITALS: PULSE 92; RESP 18; O2SAT 97
[2024-05-14 08:00] VITALS: BP 142/82; PULSE 89; RESP 19; TEMP 98.4; O2SAT 97
[2024-05-14 08:32] LABS: BASOPHILS % 0.5 % (0.0-1.0); EOSINOPHILS % 0.3 % (0.0-6.0); HEMATOCRIT 36.9 % (34.2-44.1); HEMOGLOBIN 12.5 g/dL (12.0-16.0); LYMPHOCYTES # (AUTO) 1.6 (1.0-3.2); LYMPHOCYTES % 24.4 % (18.0-39.1); MEAN CORPUSCULAR HEMOGLOBIN 31.3 pg (28-32); MEAN CORPUSCULAR HGB CONC 33.9 g/dL (31-35); MEAN CORPUSCULAR VOLUME 92.5 fL (81-99); MONOCYTES # (AUTO) 0.6 (0.2-0.8); MONOCYTES % 9.6 % (4.4-11.3); NEUTROPHILS # (AUTO) 4.1 (2.1-6.9); PLATELET COUNT 194 x10e3/uL (140-360); RED BLOOD COUNT 3.99 x10e6/uL (3.6-5.1); RED CELL DISTRIBUTION WIDTH 12.6 % (11.7-14.4); WHITE BLOOD COUNT 6.34 x10e3/uL (4.8-10.8)
[2024-05-14 08:57] LABS: ALBUMIN 3.6 g/dL (3.5-5.0); ALBUMIN/GLOBULIN RATIO 1.1 (0.8-2.0); ANION GAP 12.6 mmol/L (8-16); BILIRUBIN,TOTAL 0.7 mg/dL (0.2-1.2); CALCIUM 8.9 mg/dL (8.4-10.2); CREATININE, SERUM 0.94 mg/dL (0.57-1.11); MAGNESIUM 1.8 MG/DL (1.3-2.1); PHOSPHORUS 2.5 MG/DL (2.3-4.7); POTASSIUM 3.6 mmol/L (3.5-5.1); TOTAL PROTEIN 6.9 g/dL (6.5-8.1)
[2024-05-14 12:23] VITALS: BP 121/72; PULSE 85; RESP 19; TEMP 98; O2SAT 98
== END 2024-05-14 13:01 | disposition home or self-care (01) | DRG 621 ==
LOC: OR 05:17 → PACU V 09:55 → MED/SURG 10:44
PROVIDERS: ADMIT Internal Medicine; ATTEND Internal Medicine
PROC: 0WQF4ZZ Repair Abdominal Wall, Percutaneous Endoscopic Approach (ICD-10-PCS; 2024-05-13)
PROC: 0DNU4ZZ Release Omentum, Percutaneous Endoscopic Approach (ICD-10-PCS; 2024-05-13)
PROC: 0JH83VZ Insertion of Infusion Pump into Abdomen Subcutaneous Tissue and Fascia, Percutaneous Approach (ICD-10-PCS; 2024-05-13)
PROC: 0WHG43Z Insertion of Infusion Device into Peritoneal Cavity, Percutaneous Endoscopic Approach (ICD-10-PCS; 2024-05-13)
PROC: 0D164ZA Bypass Stomach to Jejunum, Percutaneous Endoscopic Approach (ICD-10-PCS; principal; 2024-05-13 07:12)
PROC: 0FB24ZX Excision of Left Lobe Liver, Percutaneous Endoscopic Approach, Diagnostic (ICD-10-PCS; 2024-05-13 07:12)
DX: E66.01 Morbid (severe) obesity due to excess calories (principal); Z68.41 Body mass index [BMI] 40.0-44.9, adult; G47.33 Obstructive sleep apnea (adult) (pediatric); K21.9 Gastro-esophageal reflux disease without esophagitis; K43.9 Ventral hernia without obstruction or gangrene; K66.0 Peritoneal adhesions (postprocedural) (postinfection); G89.18 Other acute postprocedural pain; R16.2 Hepatomegaly with splenomegaly, not elsewhere classified; R13.10 Dysphagia, unspecified; I11.9 Hypertensive heart disease without heart failure; E11.43 Type 2 diabetes mellitus with diabetic autonomic (poly)neuropathy; K31.84 Gastroparesis; Z79.4 Long term (current) use of insulin; K59.09 Other constipation; J42 Unspecified chronic bronchitis; I25.10 Atherosclerotic heart disease of native coronary artery without angina pectoris; K76.0 Fatty (change of) liver, not elsewhere classified; G43.909 Migraine, unspecified, not intractable, without status migrainosus; E78.1 Pure hyperglyceridemia; Z98.84 Bariatric surgery status; Z87.891 Personal history of nicotine dependence; Z85.3 Personal history of malignant neoplasm of breast; Z79.82 Long term (current) use of aspirin; Z79.899 Other long term (current) drug therapy
CPT/HCPCS: 36415; 80053; 82948; 83735; 84100; 85025; 88307; 88313; 94799; C1894; C9804; J1100; J1650; J1956; J2003; J2250; J2270; J2371; J2405; J2765; J7030

== ENCOUNTER → 2024-08-15 | Outpatient (REF) | payer MEDICARE ==
[~2024-08-15] MED LIST changes: +GADOBENATE DIMEGLUMINE 1 ML IV ONE
== END ==
LOC: MRI 12:03
PROVIDERS: ATTEND Pediatrics
DX: G81.94 Hemiplegia, unspecified affecting left nondominant side (principal)
CPT/HCPCS: 70546; 70553; A9577

== ENCOUNTER 2024-11-18 15:50 | Inpatient (IN) | payer MEDICARE, OTHER ==
[~2024-11-18] VITALS: Ht 167.6 cm; Wt 99.3 kg
[~2024-11-18 15:50] MED LIST changes: -GADOBENATE DIMEGLUMINE 1 ML IV ONE
[2024-11-18 16:44] VITALS: RESP 18; TEMP 97.9
[2024-11-18 17:47] LABS: BASOPHILS % 1.0 % (0.0-1.0); EOSINOPHILS % 2.1 % (0.0-6.0); LYMPHOCYTES % 36.7 % (18.0-39.1); MONOCYTES % 7.7 % (4.4-11.3); NEUTROPHILS % 52.3 % (38.7-80.0); RED CELL DISTRIBUTION WIDTH 12.0 % (11.7-14.4)
[2024-11-18 17:48] LABS: LEUKOCYTE ESTERASE ,URINE NEGATIVE (NEGATIVE); PROTEIN,URINE DIPSTICK NEGATIVE (NEGATIVE); URINE UROBILINOGEN 0.2 mg/dL (0.2 - 1)
[2024-11-18 18:10] LABS: EST GLOMERULAR FILTRATION RATE 60.0 ML/MIN (>=60)
[2024-11-18] MEDS ORDERED: IOPAMIDOL 370 MG/ML 100 ML INFUS..BTL INJ ONE (19:06)
[2024-11-18] MEDS: ONDANSETRON HCL INJ 2MG/ML 2ML 2 MG/ML VIAL IV STA (19:29)
[2024-11-18] MEDS: Morphine 4mg INJECTION 4 MG/ML INJ IV ONE (19:29)
[2024-11-18] MEDS: SODIUM CHLORIDE 0.9% 1000ML 1,000 ML IV ONE (19:29)
[2024-11-18] MEDS ORDERED: DEXTROSE 50% SYRINGE 50 ML IV PRN (22:15)
[2024-11-18] MEDS: INSULIN REGULAR, HUMAN 100 UNIT/1 ML SQ SCH (22:15)
[2024-11-18] MEDS ORDERED: GLUCAGON FOR INJ 1 MG VIAL ONE (22:50)
[2024-11-18] MEDS ORDERED: HYOSCYAMINE SULFATE 0.5 MG/ML INJ ONE (22:50)
[2024-11-18] MEDS: SODIUM CHLORIDE 0.9% 1000ML 1,000 ML IV SCH (23:55)
[2024-11-18] MEDS: DEXTROSE 50% SYRINGE 50 ML IV STA (23:56)
[2024-11-18] MEDS: ONDANSETRON HCL INJ 2MG/ML 2ML 2 MG/ML VIAL IV PRN (23:56)
[2024-11-18] MEDS: Morphine 4mg INJECTION 4 MG/ML INJ IV PRN (23:56)
[2024-11-19] VITALS (10 sets, daily range): BP systolic 95–122; BP diastolic 53–81; PULSE 55–74; RESP 18; TEMP 97.3–97.7; O2SAT 96–100
[2024-11-19] MEDS ORDERED: ACETAMINOPHEN 325 MG TAB PO PRN (01:15)
[2024-11-19] MEDS ORDERED: LIDOCAINE 4% PATCH TP PRN (01:15)
[2024-11-19] MEDS ORDERED: HYDRALAZINE HCL 20 MG/ML VIAL IV PRN (01:15)
[2024-11-19] MEDS ORDERED: ALBUTEROL/IPRATROPIUM 3 ML NEB NEB PRN (01:15)
[2024-11-19] MEDS ORDERED: POTASSIUM CHLORIDE 20 MEQ TAB CR PO PRN (01:15)
[2024-11-19] MEDS ORDERED: DEXTROSE 50% SYRINGE 50 ML IV PRN (01:15)
[2024-11-19] MEDS ORDERED: SIMETHICONE 80 MG CHEW PO PRN (01:15)
[2024-11-19] MEDS ORDERED: DOCUSATE SODIUM 100 MG CAP PO PRN (01:15)
[2024-11-19] MEDS ORDERED: BENZONATATE 100 MG CAP PO PRN (01:15)
[2024-11-19] MEDS ORDERED: MELATONIN 5 MG TABLET PO PRN (01:15)
[2024-11-19] MEDS ORDERED: ACETAMINOPHEN-1 EAC4 (01:45)
[2024-11-19] MEDS ORDERED: TRELEGY ELLIPT1 EACH (01:45)
[2024-11-19] MEDS ORDERED: [UNRECOGNIZED DRUG - OTHER] (01:45)
[2024-11-19] MEDS ORDERED: TIZANIDINE HCL4 MG PO (01:45)
[2024-11-19] MEDS: D5NS/KCL 20MEQ 1,000 ML IV SCH (03:00)
[2024-11-19 05:41] LABS: BASOPHILS % 1.1 % (0.0-1.0); EOSINOPHILS % 2.2 % (0.0-6.0); LYMPHOCYTES % 47.2 % (18.0-39.1); MONOCYTES % 8.5 % (4.4-11.3); NEUTROPHILS % 41.0 % (38.7-80.0); RED CELL DISTRIBUTION WIDTH 12.1 % (11.7-14.4)
[2024-11-19 06:07] LABS: EST GLOMERULAR FILTRATION RATE 69.0 ML/MIN (>=60)
[2024-11-19 06:30] LABS: PHOSPHORUS 3.8 MG/DL (2.3-4.7)
[2024-11-19] MEDS: PANTOPRAZOLE SOD 40 MG TABEC PO SCH (07:30)
[2024-11-19] MEDS: D5NS/KCL 20MEQ 1,000 ML IV ONE (08:53)
[2024-11-19] MEDS ORDERED: KETOROLAC TROMETHAMINE 30 MG/ML VIAL IV SCH (13:30)
[2024-11-19] MEDS: METOCLOPRAMIDE HCL 10 MG/2ML VIAL IV SCH (14:47)
[2024-11-19] MEDS: ENOXAPARIN SOD INJ 40 MG/0.4 ML SYR SC SCH (16:51)
[2024-11-19] MEDS: SUCRALFATE 1 GM/10 ML SUSP NG SCH (16:51)
[2024-11-19] MEDS: DIPHENHYDRAMINE HCL 25 MG CAP PO PRN (20:09)
[2024-11-20] VITALS (9 sets, daily range): BP systolic 99–120; BP diastolic 67–86; PULSE 56–75; RESP 18–20; TEMP 97.5–98.2; O2SAT 98–100
[2024-11-20 05:34] LABS: BASOPHILS % 0.9 % (0.0-1.0); EOSINOPHILS % 4.7 % (0.0-6.0); LYMPHOCYTES % 47.9 % (18.0-39.1); MONOCYTES % 10.4 % (4.4-11.3); NEUTROPHILS % 35.8 % (38.7-80.0); RED CELL DISTRIBUTION WIDTH 12.1 % (11.7-14.4)
[2024-11-20 06:00] LABS: EST GLOMERULAR FILTRATION RATE 66.0 ML/MIN (>=60)
[2024-11-20 09:34] LABS: BASOPHILS % (MANUAL) 1 % (0-1.5); EOSINOPHILS % (MANUAL) 2 % (0-7); LYMPHOCYTES % (MANUAL) 52 % (19-48); MONOCYTES % (MANUAL) 6 % (3.4-9.0); NEUTROPHILS % (MANUAL) 38 % (40-74); PLATELET ESTIMATE ADEQUATE; PLATELET MORPHOLOGY COMMENT NORMAL; REACTIVE LYMPHOCYTES 1
[2024-11-20 09:35] LABS: RBC MORPHOLOGY COMMENT NORMAL
[2024-11-20] MEDS: FOLIC ACID 1 MG TAB PO SCH (09:47)
[2024-11-20] MEDS: BISACODYL 5 MG TAB EC PO ONE ×3 (14:20→17:25)
[2024-11-20] MEDS: BUDESONIDE 0.5MG/2 ML NEB INH SCH (19:31)
[2024-11-20] MEDS: ATORVASTATIN 40 MG TAB PO SCH (21:17)
[2024-11-20] MEDS: QUETIAPINE FUMARATE 25 MG TAB PO SCH (21:17)
[2024-11-20] MEDS: CITRATE OF MAGNESIA 300ML BOTTLE PO ONE (21:17)
[2024-11-21] VITALS (12 sets, daily range): BP systolic 98–119; BP diastolic 55–88; PULSE 50–100; RESP 17–20; TEMP 97.2–98; O2SAT 94–100
[2024-11-21] MEDS: CITRATE OF MAGNESIA 300ML BOTTLE PO ONE (05:23)
[2024-11-21 05:53] LABS: BASOPHILS % 0.8 % (0.0-1.0); EOSINOPHILS % 3.9 % (0.0-6.0); LYMPHOCYTES % 30.4 % (18.0-39.1); MONOCYTES % 10.4 % (4.4-11.3); NEUTROPHILS % 54.3 % (38.7-80.0); RED CELL DISTRIBUTION WIDTH 12.0 % (11.7-14.4)
[2024-11-21 06:30] LABS: EST GLOMERULAR FILTRATION RATE 53.0 ML/MIN (>=60)
[2024-11-21] MEDS: FENOFIBRATE 145 MG TAB PO SCH (09:00)
[2024-11-21] MEDS: AMLODIPINE BESYLATE 5 MG TAB PO SCH (09:00)
[2024-11-21] MEDS: ASPIRIN 325 MG TAB PO SCH (09:00)
[2024-11-21] MEDS: TIZANIDINE HCL 4 MG TAB PO SCH (09:00)
[2024-11-21] MEDS ORDERED: LIDOCAINE HCL 2% LOCAL INJ 5 ML SDV VIAL INJ ONE (14:28)
[2024-11-21] MEDS ORDERED: PROPOFOL IV EMULSION 50 ML IV ONE (14:28)
[2024-11-21] MEDS ORDERED: PROPOFOL IV EMULSION 10 MG/ML 20 ML VIAL ONE (15:44)
[2024-11-21 17:57] LABS: CDIFF AG QUIK CHEK NEGATIVE (NEGATIVE); CDIFF TOX QUIK CHEK NEGATIVE (NEGATIVE); WBC,FECAL (FECAL LACTOFERRIN) POSITIVE (NEGATIVE)
[2024-11-22 00:58] VITALS: BP 112/65; PULSE 47; RESP 16; TEMP 97.9; O2SAT 99
[2024-11-22 07:38] VITALS: PULSE 61; RESP 18; O2SAT 96
[2024-11-22 07:45] VITALS: BP 102/73; PULSE 58; RESP 19; TEMP 97.8; O2SAT 100
[2024-11-22 09:00] VITALS: BP 102/73; PULSE 58; RESP 19; TEMP 97.8; O2SAT 100
[2024-11-22 12:30] VITALS: BP 103/74; PULSE 58; RESP 20; TEMP 98.3; O2SAT 100
[2024-11-22 13:04] VITALS: PULSE 63; RESP 18; O2SAT 97
== END 2024-11-22 15:30 | disposition home or self-care (01) | DRG 392 ==
LOC: ER 18:33 → ERHOLD 22:10 → MED/SURG2 11-19 00:51 → OBSVTOIN 11-20 13:53
PROVIDERS: ADMIT Internal Medicine; ATTEND Internal Medicine
PROC: 0DBP8ZX Excision of Rectum, Via Natural or Artificial Opening Endoscopic, Diagnostic (ICD-10-PCS; 2024-11-21)
PROC: 0DBB8ZX Excision of Ileum, Via Natural or Artificial Opening Endoscopic, Diagnostic (ICD-10-PCS; principal; 2024-11-21 15:03)
PROC: 0DBP8ZX Excision of Rectum, Via Natural or Artificial Opening Endoscopic, Diagnostic (ICD-10-PCS; 2024-11-21 15:03)
PROC: 0DBG8ZX Excision of Left Large Intestine, Via Natural or Artificial Opening Endoscopic, Diagnostic (ICD-10-PCS; 2024-11-21 15:03)
DX: R10.32 Left lower quadrant pain (principal); R11.10 Vomiting, unspecified; R19.7 Diarrhea, unspecified; E11.9 Type 2 diabetes mellitus without complications; J44.9 Chronic obstructive pulmonary disease, unspecified; J45.909 Unspecified asthma, uncomplicated; I25.10 Atherosclerotic heart disease of native coronary artery without angina pectoris; I11.9 Hypertensive heart disease without heart failure; F41.8 Other specified anxiety disorders; K21.9 Gastro-esophageal reflux disease without esophagitis; E78.5 Hyperlipidemia, unspecified; E66.01 Morbid (severe) obesity due to excess calories; G89.4 Chronic pain syndrome; M54.9 Dorsalgia, unspecified; G47.33 Obstructive sleep apnea (adult) (pediatric); K64.8 Other hemorrhoids; K62.89 Other specified diseases of anus and rectum; K62.1 Rectal polyp; F43.10 Post-traumatic stress disorder, unspecified; Z85.3 Personal history of malignant neoplasm of breast; Z79.4 Long term (current) use of insulin; Z79.82 Long term (current) use of aspirin; Z79.51 Long term (current) use of inhaled steroids; Z88.6 Allergy status to analgesic agent; Z88.0 Allergy status to penicillin; Z91.018 Allergy to other foods; Z98.84 Bariatric surgery status; Z87.891 Personal history of nicotine dependence; I25.2 Old myocardial infarction; Z86.73 Personal history of transient ischemic attack (TIA), and cerebral infarction without residual deficits
CPT/HCPCS: 36415; 45378; 45380; 45385; 74019; 74177; 80048; 80053; 81001; 82948; 83630; 83690; 83735; 83993; 84100; 84443; 84484; 85025; 87045; 87177; 87324; 87328; 87449; 88305; 93005; 93306; 94799; 99284; G0378; J1610; J1650; J1980; J2003; J2270; J2405; J2470; J2765; J3411; J7030; J7799; Q9967